=== PATIENT | female | born 1960 | race Two or more races ===

== ENCOUNTER → 2017-02-26 | Outpatient (CLI) | payer MEDICARE, MEDICAID ==
[2017-02-26 10:44] LABS: HEMOGLOBIN 9.8 g/dL (12.0-15.5); HGB HCT DIFFERENCE -0.6; MEAN CORPUSCULAR HEMOGLOBIN 29.3 pg (27.0-33.4); MEAN CORPUSCULAR HGB CONC 32.5 g/dL (32.0-36.0); MEAN CORPUSCULAR VOLUME 90 fl (80-97); RED BLOOD COUNT 3.33 10^6/uL (3.72-5.28); RED CELL DISTRIBUTION WIDTH 13.8 % (11.5-14.0); WHITE BLOOD COUNT 7.9 10^3/uL (4.0-10.5)
[2017-02-26 10:51] LABS: APPEARANCE,URINE CLOUDY; BILIRUBIN,URINE NEGATIVE (NEGATIVE); GLUCOSE, URINE 150 mg/dL (NEGATIVE); KETONES,URINE NEGATIVE (NEGATIVE); LEUKOCYTE ESTERASE,URINE MODERATE (NEGATIVE); NITRITE,URINE NEGATIVE (NEGATIVE); PROTEIN,URINE >=500 mg/dL (NEGATIVE); URINE SPECIFIC GRAVITY 1.012; UROBILINOGEN,URINE NEGATIVE mg/dL (<2.0)
[2017-02-26 11:07] LABS: ANION GAP 9 (5-19); BLOOD UREA NITROGEN 49 mg/dL (7-20); CALCIUM 8.8 mg/dL (8.4-10.2); CARBON DIOXIDE 17 mmol/L (22-30); CHLORIDE 119 mmol/L (98-107); CREATININE RESULT 2.91 mg/dL (0.52-1.25); GLUCOSE 109 mg/dL (75-110); POTASSIUM 5.8 mmol/L (3.6-5.0)
[2017-02-26 11:08] LABS: URINE CREATININE 68.3 mg/dL (15-278)
[2017-02-26 11:29] LABS: URINE PROTEIN 1056.6 mg/dL (<12)
== END ==
LOC: OD 09:15
PROVIDERS: ATTEND Internal Medicine Nephrology
DX: E11.9 Type 2 diabetes mellitus without complications (principal); R80.9 Proteinuria, unspecified; I10 Essential (primary) hypertension
CPT/HCPCS: 36415; 80048; 81001; 82570; 84156; 85027

== ENCOUNTER → 2017-03-11 | Outpatient (CLI) | payer MEDICARE, MEDICAID ==
[2017-03-11 15:26] LABS: ABSOLUTE EOSINOPHILS # (AUTO) 0.2 10^3/uL (0.0-0.6); ABSOLUTE LYMPHOCYTES (AUTO) 2.1 10^3/uL (0.5-4.7); ABSOLUTE MONOCYTES (AUTO) 0.4 10^3/uL (0.1-1.4); ABSOLUTE NEUT (AUTO) 3.8 10^3/uL (1.7-8.2); BASOPHILS % (AUTO) 0.5 % (0-2); EOSINOPHILS % (AUTO) 2.5 % (0-6); HEMATOCRIT 31.8 % (36.0-47.0); HEMOGLOBIN 10.3 g/dL (12.0-15.5); HGB HCT DIFFERENCE -0.9; LYMPHOCYTES % (AUTO) 32.4 % (13-45); MEAN CORPUSCULAR HEMOGLOBIN 29.6 pg (27.0-33.4); MEAN CORPUSCULAR HGB CONC 32.5 g/dL (32.0-36.0); MEAN CORPUSCULAR VOLUME 91 fl (80-97); MONOCYTES % (AUTO) 6.1 % (3-13); RED BLOOD COUNT 3.49 10^6/uL (3.72-5.28); RED CELL DISTRIBUTION WIDTH 13.6 % (11.5-14.0); SEGMENTED NEUTROPHILS % (AUTO) 58.5 % (42-78); WHITE BLOOD COUNT 6.4 10^3/uL (4.0-10.5)
[2017-03-11 15:47] LABS: ANION GAP 12 (5-19); BLOOD UREA NITROGEN 52 mg/dL (7-20); CALCIUM 8.7 mg/dL (8.4-10.2); CARBON DIOXIDE 18 mmol/L (22-30); CHLORIDE 116 mmol/L (98-107); CREATININE RESULT 3.22 mg/dL (0.52-1.25); GLUCOSE 136 mg/dL (75-110); POTASSIUM 5.6 mmol/L (3.6-5.0)
[2017-03-11 16:05] LABS: APPEARANCE,URINE CLOUDY; BILIRUBIN,URINE NEGATIVE (NEGATIVE); GLUCOSE, URINE 50 mg/dL (NEGATIVE)
[2017-03-11 16:06] LABS: KETONES,URINE NEGATIVE (NEGATIVE); LEUKOCYTE ESTERASE,URINE LARGE (NEGATIVE); NITRITE,URINE NEGATIVE (NEGATIVE); PROTEIN,URINE >=500 mg/dL (NEGATIVE); URINE SPECIFIC GRAVITY 1.015; UROBILINOGEN,URINE NEGATIVE mg/dL (<2.0)
[2017-03-11 16:07] LABS: BACTERIA,URINE 3+ /HPF; WBC,URINE 30-50 /HPF
[2017-03-11 16:15] LABS: URINE CREATININE 82.5 mg/dL (15-278)
[2017-03-11 17:00] LABS: URINE PROTEIN 976.4 mg/dL (<12)
== END ==
LOC: OD 14:36
PROVIDERS: ATTEND Physician Assistant Medical
DX: N17.9 Acute kidney failure, unspecified (principal); R80.9 Proteinuria, unspecified; E11.9 Type 2 diabetes mellitus without complications; I10 Essential (primary) hypertension
CPT/HCPCS: 36415; 80048; 81001; 82570; 84156; 85025; 87086; 87088; 87186

== ENCOUNTER → 2017-03-13 | Outpatient (CLI) | payer MEDICARE, MEDICAID ==
--- NOTE | 2017-03-13 15:40 | RADIOLOGY REPORT (SQ) ---
EXAM DESCRIPTION: U/S RETROPERITON (RENAL/AORTA) COMPLETED DATE/TIME: 03/13/2017 2:40 pm REASON FOR STUDY: ACUTE KIDNEY FAILURE N17.9 ACUTE KIDNEY FAILURE, UNSPECIFIED R80.9 PROTEINURIA, UNSPECIFIED COMPARISON: None. TECHNIQUE: Dynamic and static grayscale images acquired of the kidneys and bladder and recorded on P ACS. Additional selected color Doppler and spectral images recorded. LIMITATIONS: None. FINDINGS: RIGHT KIDNEY: The right kidney measures 9.6 cm in length. Normal echogenicity. No gita id or suspicious masses. No hydronephrosis. No calcifications. LEFT KIDNEY: The left kidney measures 9.9 cm in length. Normal echogenicity. No solid or suspici ous masses. No hydronephrosis. No calcifications. BLADDER: The bladder is incompletely distended. OTHER FINDINGS: No other significant finding. IMPRESSION: NORMAL RENAL AND BLADDER ULTRASOUND. TECHNICAL DOCUMENTATION: JOB ID: [id number] [employer]- All Rights Reserved
== END ==
LOC: RAD 13:58
PROVIDERS: ATTEND Internal Medicine Nephrology
DX: N17.9 Acute kidney failure, unspecified (principal); R80.9 Proteinuria, unspecified
CPT/HCPCS: 76770

== ENCOUNTER → 2017-03-14 | Outpatient (CLI) | payer MEDICARE, MEDICAID ==
[2017-03-14 15:41] LABS: ANION GAP 12 (5-19); BLOOD UREA NITROGEN 49 mg/dL (7-20); CALCIUM 8.3 mg/dL (8.4-10.2); CARBON DIOXIDE 16 mmol/L (22-30); CHLORIDE 117 mmol/L (98-107); CREATININE RESULT 2.68 mg/dL (0.52-1.25); GLUCOSE 110 mg/dL (75-110); POTASSIUM 4.9 mmol/L (3.6-5.0); SODIUM 144.8 mmol/L (137-145)
== END ==
LOC: OD 14:16
PROVIDERS: ATTEND Physician Assistant Medical
DX: E87.5 Hyperkalemia (principal); E87.0 Hyperosmolality and hypernatremia
CPT/HCPCS: 36415; 80048

== ENCOUNTER → 2017-04-15 | Outpatient (CLI) | payer MEDICARE, MEDICAID ==
[2017-04-15 13:45] LABS: APPEARANCE,URINE SLIGHTLY-CLOUDY; BILIRUBIN,URINE NEGATIVE (NEGATIVE); GLUCOSE, URINE 150 mg/dL (NEGATIVE); KETONES,URINE NEGATIVE (NEGATIVE); LEUKOCYTE ESTERASE,URINE NEGATIVE (NEGATIVE); NITRITE,URINE NEGATIVE (NEGATIVE); PROTEIN,URINE >=500 mg/dL (NEGATIVE); URINE SPECIFIC GRAVITY 1.013; UROBILINOGEN,URINE NEGATIVE mg/dL (<2.0)
[2017-04-15 13:58] LABS: ANION GAP 10 (5-19); BLOOD UREA NITROGEN 43 mg/dL (7-20); CALCIUM 8.5 mg/dL (8.4-10.2); CARBON DIOXIDE 15 mmol/L (22-30); CHLORIDE 119 mmol/L (98-107); CREATININE RESULT 2.32 mg/dL (0.52-1.25); GLUCOSE 166 mg/dL (75-110); PHOSPHORUS 4.6 mg/dL (2.5-4.5); POTASSIUM 5.8 mmol/L (3.6-5.0); SODIUM 143.7 mmol/L (137-145)
[2017-04-15 14:04] LABS: URINE CREATININE 83.8 mg/dL (15-278)
[2017-04-15 14:20] LABS: URINE PROTEIN 827.4 mg/dL (<12)
[2017-04-16 10:45] LABS: PTH INTACT 99 pg/mL (15-65)
[2017-04-16 14:39] LABS: A/G RATIO 0.9 (0.7-1.7); ALBUMIN 2 2.6 g/dL (2.9-4.4); ALPHA-1-GLOBULIN 2 0.2 g/dL (0.0-0.4); GAMMA GLOBULIN 0.7 g/dL (0.4-1.8); PROTEIN TOTAL SERUM 5.4 g/dL (6.0-8.5)
== END ==
LOC: OD 12:12
PROVIDERS: ATTEND Physician Assistant Medical
DX: I12.9 Hypertensive chronic kidney disease with stage 1 through stage 4 chronic kidney disease, or unspecified chronic kidney disease (principal); N18.4 Chronic kidney disease, stage 4 (severe); E87.5 Hyperkalemia; E11.9 Type 2 diabetes mellitus without complications
CPT/HCPCS: 36415; 80048; 81001; 82570; 82728; 83540; 83550; 83970; 84100; 84156; 84165

== ENCOUNTER → 2017-08-22 | Outpatient (CLI) | payer MEDICARE, MEDICAID ==
--- NOTE | 2017-08-22 15:17 | WOMENS IMAGING REPORT ---
EXAM DESCRIPTION: 3D SCREENING MAMMO BILAT COMPLETED DATE/TIME: 08/22/2017 2:58 pm REASON FOR STUDY: ROUTINE SCREENING; Z12.31 Z12.31 ENCNTR SCREEN MAMMOGRAM FOR MALIGNANT NEOPLASM O F DAVID COMPARISON: None. TECHNIQUE: Standard craniocaudal and mediolateral oblique views of each breast recorded using digita l acquisition and breast tomosynthesis. LIMITATIONS: None. FINDINGS: No masses, calcifications or architectural distortion. No areas of suspicion. Read with the assistance of CAD. .[facility] - R2 Cenova Version 1.3 .[facility] - R2 Cenova Version 1.3 .[facility] - R2 Cenova Version 2.4 .[facility]2 Cenova Version 2.4 .[facility] - R2 Store Facility Technician Version 9.2 IMPRESSION: NORMAL MAMMOGRAM. BIRADS 1. BREAST DENSITY: b. There are scattered areas of fibroglandular density. BIRAD: 1 NEGATIVE RECOMMENDATION: ROUTINE SCREENING COMMENT: The patient has been notified of the results by letter per SA requirements. Additional no tification policies are in place for contacting patient with suspicious or incomplete findings. Quality ID #[id number]: The [employer] recommends an annual screening mammogram for women aged 40 years or over. This facility utilizes a reminder system to ensure that all patients receive reminder letters, and/or direct phone calls for appointments. This includes reminders for routine scr eening mammograms, diagnostic mammograms, or other Breast Imaging Interventions when appropriate. Th is patient will be placed in the appropriate reminder system. The [employer] (ACR) has developed recommendations for screening MRI of the breast s in certain patient populations, to be used in conjunction with mammography. Breast MRI surveillanc e may be appropriate for women with more than 20% lifetime risk of developing breast cancer as deter mined by genetic testing, significant family history of the disease, or history of mantle radiation f or Hodgkins Disease. ACR Practice Guidelines 2008. DBT Technology DBT is a type of tomographic mammography. With conventional mammography, overlapping breast tissue ma y make lesions difficult to detect, even with good compression. DBT uses an x-ray tube that rotates a round the breast, taking images at different angles. These images are then combined to create thin sl ices of the breast that the radiologist can view as a 3D reconstruction. The [employer] unit can perform full-field digital mammograms (2D imaging); or DBT (3D imaging); or both, in a combination mode that quickly performs both the mammogram and the tomosynthesis scan while the breast is still compressed. PQRS 6045F: Fluoroscopic imaging is not utilized for breast tomosynthesis. TECHNICAL DOCUMENTATION: FINDING NUMBER: (1) ASSESSMENT: (1) JOB ID: [id number] [employer]- All Rights Reserved
== END ==
LOC: WI 14:34
PROVIDERS: ATTEND Physician Assistant
DX: Z12.31 Encounter for screening mammogram for malignant neoplasm of breast (principal)
CPT/HCPCS: 77063; G0202; 77067

== ENCOUNTER → 2017-09-04 | Outpatient (CLI) | payer MEDICARE, MEDICAID ==
[2017-09-04 16:29] LABS: HEMATOCRIT 30.4 % (36.0-47.0); HEMOGLOBIN 10.4 g/dL (12.0-15.5); HGB HCT DIFFERENCE 0.8; MEAN CORPUSCULAR HEMOGLOBIN 30.8 pg (27.0-33.4); MEAN CORPUSCULAR HGB CONC 34.2 g/dL (32.0-36.0); MEAN CORPUSCULAR VOLUME 90 fl (80-97); RED BLOOD COUNT 3.39 10^6/uL (3.72-5.28); WHITE BLOOD COUNT 5.2 10^3/uL (4.0-10.5)
[2017-09-04 16:45] LABS: ANION GAP 7 (5-19); BLOOD UREA NITROGEN 47 mg/dL (7-20); CALCIUM 8.5 mg/dL (8.4-10.2); CARBON DIOXIDE 15 mmol/L (22-30); CHLORIDE 122 mmol/L (98-107); CREATININE RESULT 3.64 mg/dL (0.52-1.25); GLUCOSE 67 mg/dL (75-110); SODIUM 143.8 mmol/L (137-145)
[2017-09-04 16:58] LABS: POTASSIUM 6.1 mmol/L (3.6-5.0)
== END ==
LOC: OD 15:40
PROVIDERS: ATTEND Internal Medicine Nephrology
DX: I12.9 Hypertensive chronic kidney disease with stage 1 through stage 4 chronic kidney disease, or unspecified chronic kidney disease (principal); N18.4 Chronic kidney disease, stage 4 (severe); E87.5 Hyperkalemia; E11.9 Type 2 diabetes mellitus without complications
CPT/HCPCS: 36415; 80048; 85027

== ENCOUNTER → 2017-09-06 | Outpatient (CLI) | payer MEDICARE, MEDICAID | LOC: OD 13:02 | PROVIDERS: ATTEND Internal Medicine Nephrology | DX: E87.5 Hyperkalemia (principal) | CPT/HCPCS: 36415; 84132 ==

== ENCOUNTER 2018-04-15 15:25 | Emergency (ER) | payer MEDICARE, MEDICAID ==
[2018-04-15 16:24] LABS: ABSOLUTE EOSINOPHILS # (AUTO) 0.1 10^3/uL (0.0-0.6); ABSOLUTE LYMPHOCYTES (AUTO) 0.9 10^3/uL (0.5-4.7); ABSOLUTE MONOCYTES (AUTO) 0.6 10^3/uL (0.1-1.4); ABSOLUTE NEUT (AUTO) 8.5 10^3/uL (1.7-8.2); BASOPHILS % (AUTO) 0.3 % (0-2); EOSINOPHILS % (AUTO) 0.9 % (0-6); MEAN CORPUSCULAR HEMOGLOBIN 29.6 pg (27.0-33.4); MEAN CORPUSCULAR HGB CONC 31.5 g/dL (32.0-36.0); MEAN CORPUSCULAR VOLUME 94 fl (80-97); MONOCYTES % (AUTO) 5.9 % (3-13); PLATELET COUNT 316 10^3/uL (150-450); RED BLOOD COUNT 2.02 10^6/uL (3.72-5.28); RED CELL DISTRIBUTION WIDTH 15.3 % (11.5-14.0); SEGMENTED NEUTROPHILS % (AUTO) 83.9 % (42-78); TOTAL CELLS COUNTED % (AUTO) 100 %; WHITE BLOOD COUNT 10.1 10^3/uL (4.0-10.5)
[2018-04-15] MEDS ORDERED: NORMAL SALINE 250 ML IV PRN ×2 (16:35)
[2018-04-15] MEDS ORDERED: PIPERACILLIN/TAZOBACTAM 4.5 GM VIAL IV ONE (16:36)
[2018-04-15] MEDS ORDERED: VANCOMYCIN HCL INJ 1000 MG VIAL IV ONE (16:36)
[2018-04-15 16:39] LABS: ALANINE AMINOTRANSFERASE 23 U/L (9-52); ALBUMIN 2.6 g/dL (3.5-5.0); ALKALINE PHOSPHATASE 86 U/L (38-126); ASPARTATE AMINO TRANSFERASE 13 U/L (14-36); BILIRUBIN,DIRECT 0.3 mg/dL (0.0-0.4); BILIRUBIN,TOTAL 0.3 mg/dL (0.2-1.3); CALCIUM 7.2 mg/dL (8.4-10.2); GLUCOSE 64 mg/dL (75-110); LIPASE 276.7 U/L (23-300); TOTAL PROTEIN 5.5 g/dL (6.3-8.2)
--- NOTE | 2018-04-15 16:48 | ER Document Report ---
ED General - General Chief Complaint: Nausea/Vomiting/Diarrhea Stated Complaint: NAUSEA Time Seen by Provider: 04/15/18 16:23 Mode of Arrival: Ambulatory Information source: Patient Notes: 57-year-old female history of left AKA, right eye blindness presents with complaints of generalized weakness. Patient has a history of chronic kidney disease notes over the past few months she has been feeling weak denies any fevers or chills admits to nausea vomiting and diarrhea TRAVEL OUTSIDE OF THE [place] IN LAST 30 DAYS: No - HPI Onset: Other Onset/Duration: Persistent Quality of pain: No pain Severity: Moderate Pain Level: Denies Associated symptoms: Diarrhea, Nausea, Vomiting, Weakness Exacerbated by: Denies Relieved by: Denies Similar symptoms previously: No Recently seen / treated by doctor: No - Related Data Allergies/Adverse Reactions: No Known Allergies Allergy (Verified 04/15/18 16:01) Past Medical History - Social History Smoking Status: Current Every Day Smoker Cigarette use (# per day): Yes Chew tobacco use (# tins/day): No Smoking Education Provided: No Frequency of alcohol use: None Drug Abuse: None Family History: Reviewed & Not Pertinent Patient has suicidal ideation: No Patient has homicidal ideation: No - Past Medical History Cardiac Medical History: Reports: Hx Heart Attack - 12/2011 x 2, Hx Hypertension - COREG Pulmonary Medical History: Denies: Hx Asthma Neurological Medical History: Denies: Hx Cerebrovascular Accident, Hx Seizures Endocrine Medical History: Reports: Hx Diabetes Mellitus Type 2 - diet controlled Renal/ Medical History: Denies: Hx Peritoneal Dialysis GI Medical History: Denies: Hx Hepatitis, Hx Hiatal Hernia, Hx Ulcer Infectious Medical History: Denies: Hx Hepatitis Past Surgical History: Reports: Hx Orthopedic Surgery - left leg amputated. Denies: Hx Mastectomy, Hx Open Heart Surgery, Hx Pacemaker Review of Systems - Review of Systems Notes: REVIEW OF SYSTEMS: CONSTITUTIONAL : Denies fever, chills, or sweats. Denies recent illness. EENT: Denies eye, ear, throat, or mouth pain or symptoms. Denies nasal or sinus congestion or discharge. Denies throat, tongue, or mouth swelling or difficulty swallowing. CARDIOVASCULAR: Denies chest pain. Denies palpitations or racing or irregular heart beat. Denies ankle edema. RESPIRATORY: Denies cough, cold, or chest congestion. Denies shortness of breath, difficulty breathing, or wheezing. GASTROINTESTINAL: Admits to nausea vomiting diarrhea GENITOURINARY: Denies difficulty urinating, painful urination, burning, frequency, blood in urine, or discharge. FEMALE GENITOURINARY: Denies vaginal bleeding, heavy or abnormal periods, irregular periods. Denies vaginal discharge or odor. MUSCULOSKELETAL: Denies back or neck pain or stiffness. Denies joint pain or swelling. SKIN: Denies rash, lesions or sores. HEMATOLOGIC : Denies easy bruising or bleeding. LYMPHATIC: Denies swollen, enlarged glands. NEUROLOGICAL: Denies confusion or altered mental status. Denies passing out or loss of consciousness. Denies dizziness or lightheadedness. Denies headache. Denies weakness or paralysis or loss of use of either side. Denies problems with gait or speech. Denies sensory loss, numbness, or tingling. Denies seizures. PSYCHIATRIC: Denies anxiety or stress. Denies depression, suicidal ideation, or homicidal ideation. ALL OTHER SYSTEMS REVIEWED AND NEGATIVE. PHYSICAL EXAMINATION: GENERAL: Ill-appearing female HEAD: Atraumatic, normocephalic. EYES: Right eye blind ENT: Nares patent, oropharynx clear without exudates. Moist mucous membranes. NECK: Normal range of motion, supple without lymphadenopathy LUNGS: Breath sounds clear to auscultation bilaterally and equal. No wheezes rales or rhonchi. HEART: Regular rate and rhythm without murmurs ABDOMEN: Soft, nontender, nondistended abdomen. No guarding, no rebound. No masses appreciated. Female : deferred Musculoskeletal: Left AKA NEUROLOGICAL: Cranial nerves grossly intact. Normal speech, normal gait. Normal sensory, motor exams PSYCH: Normal mood, normal affect. SKIN: Cellulitis right groin Dictation was performed using [employer] voice recognition software Physical Exam - Vital signs Vitals: Resp 15 04/15/18 15:53 Course - Re-evaluation Re-evalutation: 04/15/18 16:47 Patient's presentation is most consistent with anemia chronic kidney disease related, she denies any rectal bleeding vomiting blood 04/15/18 17:11 Pt noted ot have creatinine 11, pot 7.3, meds ordered , dr aleman contacted, he requests transfer vidant paged Dr Doss 04/15/18 17:16 Dr doss will accept - Vital Signs Vital signs: Temp Pulse Resp BP Pulse Ox 15 04/15/18 15:53 - Laboratory Result Diagrams: 04/15/18 15:45 04/15/18 15:45 Laboratory results interpreted by me: 04/15/18 04/15/18 04/15/18 15:45 15:45 16:55 RBC 2.02 L Hgb 6.0 L Hct 19.0 L MCHC 31.5 L RDW 15.3 H Seg Neutrophils % 83.9 H Lymphocytes % 9.0 L Absolute Neutrophils 8.5 H Sodium 147.1 H Potassium 7.3 H* Chloride 122 H Carbon Dioxide 5 L* Anion Gap 20 H BUN 152 H Creatinine 11.10 H Est GFR ( Amer) 4 L Est GFR (Non-Af Amer) 4 L Glucose 64 L POC Glucose 64 L Calcium 7.2 L AST 13 L Total Protein 5.5 L Albumin 2.6 L Crossmatch 04/15/18 04/15/18 17:20 17:48 RBC Hgb Hct MCHC RDW Seg Neutrophils % Lymphocytes % Absolute Neutrophils Sodium Potassium Chloride Carbon Dioxide Anion Gap BUN Creatinine Est GFR ( Amer) Est GFR (Non-Af Amer) Glucose POC Glucose 475 H* Calcium AST Total Protein Albumin Crossmatch See Detail Discharge - Discharge Clinical Impression: Acute renal failure Qualifiers: Acute renal failure type: unspecified Qualified Code(s): N17.9 - Acute kidney failure, unspecified Condition: Critical Disposition: [facility] Referrals: Veena ALEMAN MD [Primary Care Provider] - Follow up as needed
[2018-04-15 16:53] LABS: BLOOD UREA NITROGEN 152 mg/dL (7-20)
[2018-04-15 16:54] LABS: CHLORIDE 122 mmol/L (98-107); SODIUM 147.1 mmol/L (137-145)
[2018-04-15 16:55] LABS: ANION GAP 20 (5-19)
[2018-04-15 16:57] LABS: CARBON DIOXIDE 5 mmol/L (22-30); POTASSIUM 7.3 mmol/L (3.6-5.0)
[2018-04-15] MEDS ORDERED: SODIUM BICARBONATE 8.4% INJ 50 MEQ/50 ML DISP.SYRIN IV ONE (17:02)
[2018-04-15] MEDS ORDERED: DEXTROSE 50%-WATER 25 GM/50 ML DISP.SYRIN IV ONE ×2 (17:02→17:03)
[2018-04-15] MEDS ORDERED: ALBUTEROL SULFATE 0.083% NEB 2.5 MG/3 ML AMPUL NEB ONE (17:02)
[2018-04-15] MEDS ORDERED: INSULIN REG, HUMAN 100 UNIT/ML 3 ML VIAL (PYX) IV ONE (17:02)
[2018-04-15] MEDS ORDERED: CALCIUM GLUCONATE 1000 MG/10 ML INJ IV ONE (17:02)
[2018-04-15 18:18] VITALS: BP 118/60
[2018-04-15 18:50] LABS: AMORPHOUS SEDIMENT,URINE TRACE /HPF; APPEARANCE,URINE SLIGHTLY-CLOUDY; BILIRUBIN,URINE NEGATIVE (NEGATIVE); COLOR,URINE YELLOW; GLUCOSE, URINE 50 mg/dL (NEGATIVE); KETONES,URINE NEGATIVE (NEGATIVE); LEUKOCYTE ESTERASE,URINE SMALL (NEGATIVE); NITRITE,URINE NEGATIVE (NEGATIVE); PROTEIN,URINE 100 mg/dL (NEGATIVE); URINE SPECIFIC GRAVITY 1.012; UROBILINOGEN,URINE NEGATIVE mg/dL (<2.0)
--- NOTE | 2018-04-15 22:10 | EKG REPORT ---
SEVERITY:- ABNORMAL ECG - SINUS RHYTHM NONSPECIFIC INTRAVENTRICULAR CONDUCTION DELAY PROBABLE LATERAL INFARCT, AGE INDETERMINATE ABNRM R PROG, CONSIDER ASMI OR LEAD PLACEMENT : Confirmed by: Sakshi Pugh 15-Apr-2018 22:10:15
== END 2018-04-15 18:20 | disposition short-term general hospital (02) ==
LOC: ER 15:25
DX: N17.9 Acute kidney failure, unspecified (principal); L03.314 Cellulitis of groin; R11.2 Nausea with vomiting, unspecified; R19.7 Diarrhea, unspecified; H54.61 Unqualified visual loss, right eye, normal vision left eye; R53.83 Other fatigue; I10 Essential (primary) hypertension; F17.210 Nicotine dependence, cigarettes, uncomplicated; Z89.612 Acquired absence of left leg above knee; I25.2 Old myocardial infarction
CPT/HCPCS: 93005; 94640; 99285; 51701; 96375; 96365; 96366; 96368; 86900; 86901; 36415; 87040; 86850; 82962; 83690; 85025; 80053; 81001; 86920; 93010; J0610; J3490 ×2; A9270 ×2; J3370; J2543; J1815

== ENCOUNTER 2018-05-27 00:09 | Observation (INO) | payer MEDICARE, MEDICAID ==
--- NOTE | 2018-05-27 00:39 | ER Document Report ---
ED General - General Mode of Arrival: Medic Information source: Patient TRAVEL OUTSIDE OF THE U.[place]. IN LAST 30 DAYS: No <JODEE LINARES - Last Filed: 05/27/18 02:50> <HIRAM FREEMAN - Last Filed: 05/27/18 04:37> - General Stated Complaint: RESPIRATORY DISTRESS Time Seen by Provider: 05/27/18 00:12 Notes: Patient is a 57 year old female with HTN, diabetes type 2, ESRD and a history of OR presents to the emergency department via EMS complaining of chest pain and difficulty breathing. Patient is on BiPAP at bedside and states she feels completely normal. Patient denies any cough, fever or oxygen use at home. Patient states she last had dialysis on 3 days ago. (JODEE LINARES) - Related Data Allergies/Adverse Reactions: No Known Allergies Allergy (Verified 04/15/18 16:01) Past Medical History - General Information source: Patient - Social History Smoking Status: Never Smoker Cigarette use (# per day): No Chew tobacco use (# tins/day): No Smoking Education Provided: No Family History: Reviewed & Not Pertinent - Past Medical History Cardiac Medical History: Reports: Hx Heart Attack - 12/2011 x 2, Hx Hypertension - COREG Endocrine Medical History: Reports: Hx Diabetes Mellitus Type 2 - diet controlled Past Surgical History: Reports: Hx Orthopedic Surgery - left leg amputated <JDOEE LINARES - Last Filed: 05/27/18 02:50> Review of Systems - Review of Systems Constitutional: No symptoms reported EENT: No symptoms reported Cardiovascular: See HPI, Chest pain Respiratory: See HPI Gastrointestinal: No symptoms reported Genitourinary: No symptoms reported Female Genitourinary: No symptoms reported Musculoskeletal: No symptoms reported Skin: No symptoms reported Hematologic/Lymphatic: No symptoms reported Neurological/Psychological: No symptoms reported -: Yes All other systems reviewed and negative <JODEE LINARES - Last Filed: 05/27/18 02:50> Physical Exam - Vital signs Interpretation: Tachypneic - General General appearance: Alert In distress: Mild - HEENT Head: Normocephalic, Atraumatic Eyes: Other - R eye at baseline - Respiratory Respiratory status: Respiratory distress, Tachypnea Chest status: Nontender Breath sounds: Rales - Bases bilaterally Chest palpation: Normal - Cardiovascular Rhythm: Regular Heart sounds: Normal auscultation Murmur: No - Abdominal Inspection: Normal Distension: No distension Bowel sounds: Normal Tenderness: Nontender Organomegaly: No organomegaly - Back Back: Normal, Nontender - Extremities General upper extremity: Normal inspection, Normal color, Normal ROM General lower extremity: Other - L AKA - Neurological Neuro grossly intact: Yes Cognition: Normal Orientation: AAOx4 Denis Coma Scale Eye Opening: Spontaneous [place] Coma Scale Verbal: Oriented [place] Coma Scale Motor: Obeys Commands [place] Coma Scale Total: 15 Speech: Normal Motor strength normal: LUE, RUE, LLE Sensory: Normal - Psychological Associated symptoms: Normal affect, Normal mood - Skin Skin Temperature: Warm Skin Moisture: Dry Skin Color: Normal <HIRAM FREEMAN - Last Filed: 05/27/18 04:37> - Vital signs Vitals: Resp Pulse Ox 22 H 100 05/27/18 00:10 05/27/18 00:10 Course - Laboratory Result Diagrams: 05/27/18 00:23 05/27/18 00:23 <JODEE LINARES - Last Filed: 05/27/18 02:50> - Laboratory Result Diagrams: 05/27/18 00:23 05/27/18 00:23 <HIRAM FREEMAN - Last Filed: 05/27/18 04:37> - Re-evaluation Re-evalutation: 05/27/18 02:[address] Serrato who recommends administering Lasix and states they will see the patient in office tomorrow. (JODEE LINARES) Patient is a 57-year-old female who comes in with difficulty breathing. Patient had complained of chest pain but no further complaints in the emergency department. She was initiated on BiPAP. Patient had been given sublingual nitroglycerin and also nitroglycerin paste prior to arrival. No acute findings on EKG. Troponin is negative. Patient has vascular congestion on x-ray and by exam. Potassium is stable. Patient will be admitted for respiratory distress, probable fluid overload, end-stage renal disease on dialysis. There are dialysis beds available. Spoke with Dr. Serrato. Hospitalist will admit. Stable at time of admission. (HIRAM FREEMAN) - Vital Signs Vital signs: Temp Pulse Resp BP Pulse Ox 98.9 F 87 17 146/56 H 100 05/27/18 00:12 05/27/18 00:12 05/27/18 03:00 05/27/18 03:00 05/27/18 03:00 - Laboratory Laboratory results interpreted by me: 05/27/18 05/27/18 00:23 00:23 RBC 3.28 L Hgb 10.1 L Hct 30.9 L RDW 16.7 H BUN 52 H Creatinine 4.96 H Est GFR ( Amer) 11 L Est GFR (Non-Af Amer) 9 L Alkaline Phosphatase 131 H Critical Care Note - Critical Care Note Total time excluding time spent on procedures (mins): 45 - Evaluation and management of respiratory distress, fluid overload, multiple re-evaluations, consultation with specialist, coordination of admission, counseling of patient <HIRAM FREEMAN - Last Filed: 05/27/18 04:37> Discharge <JODEE LINARES - Last Filed: 05/27/18 02:50> - Discharge Admitting Provider: [facility] Unit Admitted: ICU <HIRAM FREEMAN - Last Filed: 05/27/18 04:37> - Discharge Clinical Impression: ESRD (end stage renal disease), Respiratory distress Fluid overload Qualifiers: Hypervolemia type: other Qualified Code(s): E87.79 - Other fluid overload Condition: Stable Disposition: ADMITTED INPATIENT Scribe Attestation: 05/27/18 04:36 I personally performed the services described in the documentation, reviewed and edited the documentation which was dictated to the scribe in my presence, and it accurately records my words and actions. (HIRAM FREEMAN) Scribe Documentation - Scribe Written by Miguel:: Miguel Lynch, 05/27/2018 00:40 acting as scribe for :: Jackie <JODEE LINARES - Last Filed: 05/27/18 02:50>
[2018-05-27 01:10] LABS: ABSOLUTE BASOPHILS # (AUTO) 0.1 10^3/uL (0.0-0.2); ABSOLUTE EOSINOPHILS # (AUTO) 0.3 10^3/uL (0.0-0.6); ABSOLUTE LYMPHOCYTES (AUTO) 2.2 10^3/uL (0.5-4.7); ABSOLUTE MONOCYTES (AUTO) 0.5 10^3/uL (0.1-1.4); BASOPHILS % (AUTO) 0.7 % (0-2); EOSINOPHILS % (AUTO) 3.6 % (0-6); HEMATOCRIT 30.9 % (36.0-47.0); HEMOGLOBIN 10.1 g/dL (12.0-15.5); LYMPHOCYTES % (AUTO) 27.3 % (13-45); MEAN CORPUSCULAR HEMOGLOBIN 30.9 pg (27.0-33.4); MEAN CORPUSCULAR HGB CONC 32.9 g/dL (32.0-36.0); MEAN CORPUSCULAR VOLUME 94 fl (80-97); MONOCYTES % (AUTO) 6.4 % (3-13); PLATELET COUNT 380 10^3/uL (150-450); RED BLOOD COUNT 3.28 10^6/uL (3.72-5.28); RED CELL DISTRIBUTION WIDTH 16.7 % (11.5-14.0); TOTAL CELLS COUNTED % (AUTO) 100 %
[2018-05-27 01:15] LABS: INTERNATIONAL RATION (INR) 1.01; PROTHROMBIN TIME 13.8 SEC (11.4-15.4)
[2018-05-27 01:16] LABS: ALANINE AMINOTRANSFERASE 27 U/L (9-52); ALBUMIN 3.5 g/dL (3.5-5.0); ALKALINE PHOSPHATASE 131 U/L (38-126); ANION GAP 14 (5-19); ASPARTATE AMINO TRANSFERASE 29 U/L (14-36); BILIRUBIN,DIRECT 0.4 mg/dL (0.0-0.4); BILIRUBIN,TOTAL 0.4 mg/dL (0.2-1.3); BLOOD UREA NITROGEN 52 mg/dL (7-20); CALCIUM 9.1 mg/dL (8.4-10.2); CARBON DIOXIDE 23 mmol/L (22-30); CHLORIDE 103 mmol/L (98-107); CREATINE KINASE 70 U/L (30-135); GLUCOSE 103 mg/dL (75-110); POTASSIUM 4.2 mmol/L (3.6-5.0); SODIUM 139.8 mmol/L (137-145); TOTAL PROTEIN 6.7 g/dL (6.3-8.2)
--- NOTE | 2018-05-27 01:19 | RADIOLOGY REPORT (SQ) ---
XR CHEST 1 VIEW HISTORY: Shortness of breath. COMPARISON: None. FINDINGS/IMPRESSION: Right IJ central line with the tip at the cavoatrial junction. Mild cardiomegaly is present with pulmonary vascular congestion. Small right pleural effusion with adjacent atelectasis/opacity. Left lung is grossly clear. No acute osseous findings.
[2018-05-27 01:28] LABS: CREATINE KINASE MB 2.7 ng/mL (<4.55)
[2018-05-27 01:32] LABS: TROPONIN I 0.04 ng/mL
[2018-05-27] MEDS ORDERED: FUROSEMIDE INJ/PF 40 MG/4 ML SDV IV ONE ×2 (02:47→09:00)
[2018-05-27] MEDS ORDERED: PROMETHAZINE HCL 25 MG TABLET PO PRN (03:54)
[2018-05-27] MEDS ORDERED: PROMETHAZINE HCL INJ 25 MG/1 ML VIAL IV PRN (03:54)
[2018-05-27] MEDS ORDERED: ACETAMINOPHEN 325 MG TABLET PO PRN (03:54)
[2018-05-27] MEDS ORDERED: MAG HYDROX/AL HYDROX/SIMETH SUSP 30 ML UDCUP PO PRN (03:54)
--- NOTE | 2018-05-27 04:12 | PDOC H&P ---
History of Present Illness Admission Date/PCP: 05/27/18 03:08 Rafael Serrato Patient complains of: Shortness of breath History of Present Illness: ASHLEY GARCIA is a 57 year old female ESRD on hemodialysis Saturday and Saturday. Patient tells me that she has started hemodialysis 3 weeks ago in [place] and her last dialysis was a complete one last Saturday. Today at 11 PM she has started with the left side chest pain, pleuritic-like associated with progressive shortness of breath, she was saturating 89% on 3 L oxygen via nasal cannula. Patient was initiated on CPAP in the EMS and was given 2 nitroglycerin sublingual. Patient is currently on BiPAP. Chest x-ray shows bilateral vascular congestion. Patient denies drinking more fluids than her usual. Patient still makes urine. Patient will be admitted under observation for hemodialysis later on today as her brass cleaner is Dr. Serrato. Has been feeling cold but denies fever or chills, nausea, vomiting, cough, she is wheezing on and off, denies abdominal pain, diarrhea or constipation or urinary symptoms. Past Medical History Cardiac Medical History: Reports: Myocardial Infarction - 12/2011 x 2, Hypertension - COREG Pulmonary Medical History: Denies: Asthma Neurological Medical History: Denies: Seizures Endocrine Medical History: Reports: Diabetes Mellitus Type 2 - diet controlled Renal/ Medical History: Reports: End Stage Renal Disease GI Medical History: Denies: Hepatitis, Hiatal Hernia Hematology: Denies: Anemia, Sickle Cell Disease Infectious Medical History: Reports: Other Infectious History Note: Right eye infection with enucleation Past Surgical History Past Surgical History: Reports: Amputation - LT LEG above knee amputation, Orthopedic Surgery - left leg amputated Denies: Mastectomy, Pacemaker Social History Information Source: Patient Smoking Status: Never Smoker Frequency of Alcohol Use: None Hx Recreational Drug Use: No Hx Prescription Drug Abuse: No Past Social History Note: Lives with her mother at home Family History Family History: Reviewed & Not Pertinent Parental Family History Reviewed: No Children Family History Reviewed: NA Sibling(s) Family History Reviewed.: NA Medication/Allergy Home Medications: Aspirin [Aspirin 81 mg Chewable Tablet] 81 mg PO DAILY 07/04/12 Bupropion HCl [Wellbutrin Xl 150 mg 24hr Tablet] 150 mg PO DAILY 07/04/12 Carvedilol [Coreg 6.25 Mg Tablet] 6.25 mg PO DAILY 07/04/12 Clopidogrel Bisulfate [Plavix 75 Mg Tablet] 75 mg PO DAILY 07/04/12 Nitroglycerin [Nitrostat 0.4 mg (1/150 Gr) Tabs 25/Bottle] 0.4 mg SL Q5MP PRN Simvastatin [Zocor 20 mg Tablet] 20 mg PO QHS 07/04/12 Allergies/Adverse Reactions: No Known Allergies Allergy (Verified 04/15/18 16:01) Review of Systems Review of Systems: As outlined in the HPI, others negative Physical Exam Vital Signs: Temp Pulse Resp BP Pulse Ox 98.9 F 87 17 146/56 H 100 05/27/18 00:12 05/27/18 00:12 05/27/18 03:00 05/27/18 03:00 05/27/18 03:00 Additional comments: General appearance: Well-developed, well-nourished, alert and cooperative, and appears to be in no acute distress Head: Normocephalic Eyes: Right eye enucleation, left eye blurry vision. Ears: External auditory canal and tympanic membranes clear, hearing grossly intact. Nose: No nasal discharge. Throat: Oral cavity and pharynx normal. No inflammation, swelling, exudate or lesions. Neck: Neck supple, nontender without lymphadenopathy, masses or thyromegaly. Cardiac: Normal S1 and S2. No S3, S4 or murmurs. Rhythm is regular. There is no peripheral edema, cyanosis or pallor. Extremities are warm and well perfused. Capillary refill is less than 2 seconds. No carotid bruits. Lungs: Clear to auscultation and percussion with bibasilar rales, no rhonchi or wheezing or diminished breath sounds. Not using accessory muscles. Abdomen: Positive bowel sounds. Soft. Nondistended, nontender. No guarding or rebound. No masses. No hepatosplenomegaly Extremities: Left AKA Neurological: Cranial nerves II through XII grossly intact. Strength and sensation symmetric and intact throughout. Reflexes 2+ throughout. Skin: Skin normal color, texture and turgor with no lesions or eruptions, warm and dry. Psychiatric: The mental examination revealed the patient was oriented to person , place, and time. The patient was able to demonstrate good judgment on recent , without hallucinations, abnormal affect or abnormal behaviors. Results Laboratory Results: 05/27/18 05/27/18 05/27/18 00:23 00:23 00:23 WBC 8.0 RBC 3.28 L Hgb 10.1 L Hct 30.9 L MCV 94 MCH 30.9 MCHC 32.9 RDW 16.7 H Plt Count 380 Seg Neutrophils % 62.0 Lymphocytes % 27.3 Monocytes % 6.4 Eosinophils % 3.6 Basophils % 0.7 Absolute Neutrophils 5.0 Absolute Lymphocytes 2.2 Absolute Monocytes 0.5 Absolute Eosinophils 0.3 Absolute Basophils 0.1 PT 13.8 INR 1.01 Sodium 139.8 Potassium 4.2 Chloride 103 Carbon Dioxide 23 Anion Gap 14 BUN 52 H Creatinine 4.96 H Est GFR ( Amer) 11 L Est GFR (Non-Af Amer) 9 L Glucose 103 Calcium 9.1 Total Bilirubin 0.4 Direct Bilirubin 0.4 AST 29 ALT 27 Alkaline Phosphatase 131 H Creatine Kinase 70 CK-MB (CK-2) Troponin I Total Protein 6.7 Albumin 3.5 05/27/18 00:23 WBC RBC Hgb Hct MCV MCH MCHC RDW Plt Count Seg Neutrophils % Lymphocytes % Monocytes % Eosinophils % Basophils % Absolute Neutrophils Absolute Lymphocytes Absolute Monocytes Absolute Eosinophils Absolute Basophils PT INR Sodium Potassium Chloride Carbon Dioxide Anion Gap BUN Creatinine Est GFR ( Amer) Est GFR (Non-Af Amer) Glucose Calcium Total Bilirubin Direct Bilirubin AST ALT Alkaline Phosphatase Creatine Kinase CK-MB (CK-2) 2.70 Troponin I 0.040 Total Protein Albumin Impressions: Chest X-Ray 05/27/18 00:36 FINDINGS/IMPRESSION: Right IJ central line with the tip at the cavoatrial junction. Mild cardiomegaly is present with pulmonary vascular congestion. Small right pleural effusion with adjacent atelectasis/opacity. Left lung is grossly clear. No acute osseous findings. Assessment & Plan - Diagnosis (1) Fluid overload Qualifiers: Hypervolemia type: other Qualified Code(s): E87.79 - Other fluid overload Is this a current diagnosis for this admission?: Yes Plan: Patient comes with fluid overload associated with sudden shortness of breath and pleuritic left sided chest pain. We will give the patient on BiPAP in IMCU until she can have hemodialysis by Dr. Serrato through her right Port-A-Cath. (2) ESRD (end stage renal disease) Is this a current diagnosis for this admission?: Yes Plan: Patient tells me that she has started hemodialysis about 3 weeks ago, she has a right Port-A-Cath and no AV fistula has been scheduled yet. Dr. Serrato from the nephrology department has been consulted. (3) Hypertension Qualifiers: Hypertension type: essential hypertension Qualified Code(s): I10 - Essential (primary) hypertension Is this a current diagnosis for this admission?: Yes Plan: Resume home antihypertensive medication. (4) Diabetes mellitus type 2 in nonobese Is this a current diagnosis for this admission?: Yes Plan: Accu-Cheks q. before meals and at bedtime, insulin lispro sliding scale, hypoglycemia protocol. (5) CAD (coronary artery disease) Is this a current diagnosis for this admission?: Yes Plan: Continue Plavix - Time Time Spent: 30 to 50 Minutes
[2018-05-27] MEDS: IPRATROPIUM/ALBUTEROL 0.5-2.5 MG/3 ML AMPUL NEB SCH ×5 (07:04→16:38)
[2018-05-27] MEDS: HEPARIN SOD (PORCINE) 5,000 UNIT/ML 1 ML SYRINGE SUBCUT SCH ×2 (07:47→16:06)
--- NOTE | 2018-05-27 09:29 | EKG REPORT ---
SEVERITY:- ABNORMAL ECG - SINUS RHYTHM BORDERLINE LEFT AXIS DEVIATION ABNORMAL T, CONSIDER ISCHEMIA, LATERAL LEADS : Confirmed by: Sakshi Pugh 27-May-2018 09:29:05
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
[2018-05-27] MEDS ORDERED: FUROSEMIDE INJ/PF 40 MG/4 ML SDV IV SCH (14:00)
--- NOTE | 2018-05-27 14:57 | PDOC CONSULTATION ---
Consultation Consult Date: 05/27/18 Consult reason:: hemodialysis History of Present Illness Admission Date/PCP: 05/27/18 03:08 History of Present Illness: NIANe GARCIA is a 57 year old female with h/o hypertension just ecently started on HD was admitted with dyspnea on exertion progressing to Orthopnea x 1 day.There was no c/o chest pains, fever or chills.She was diagnosed to have CHF and admitted for urgent dialysis. She is currently undergoing HD without any issues. VS are stable.Labs and meds were reviewed wi and the treating hospital tray service worker. Past Medical History Cardiac Medical History: Reports: Hypertension-primary, Myocardial Infarction - 12/2011 x 2 Pulmonary Medical History: Denies: Asthma Neurological Medical History: Denies: Seizures Endocrine Medical History: Reports: Diabetes Mellitus Type 2 - diet controlled Complications of Diabetes: Reports: Other Renal/ Medical History: Reports: End Stage Renal Disease, Secondary Hyperparathyroidism GI Medical History: Denies: Hepatitis, Hiatal Hernia Psychiatric Medical History: Reports: Depression Infectious Medical History: Reports: Other Hematology Medical History: Reports Anemia of Chronic Kidney Disease Past Surgical History Past Surgical History: Reports: Orthopedic Surgery - left leg amputated Denies: Mastectomy, Pacemaker Social History Smoking Status: Former Smoker Last Time Smoked: 2015 Frequency of Alcohol Use: None Hx Recreational Drug Use: No Drugs: None Hx Prescription Drug Abuse: No - Advance Directive Resuscitation Status: Full Code Family History Parental Family History Reviewed: Yes - Negative fo ESRD Children Family History Reviewed: No Sibling(s) Family History Reviewed.: No Medication/Allergy Home Medications: Amlodipine Besylate [Norvasc 5 mg Tablet] 5 mg PO DAILY 05/27/18 Aspirin [Adult Aspirin] 81 mg PO DAILY 05/27/18 Atorvastatin Calcium [Lipitor 80 mg Tablet] 80 mg PO QHS 05/27/18 Carvedilol [Coreg 6.25 mg Tablet] 6.25 mg PO Q12 05/27/18 Clopidogrel Bisulfate [Plavix 75 mg Tablet] 75 mg PO DAILY 05/27/18 Insulin Detemir [Levemir Flextouch] 10 units SQ QPM 05/27/18 Lisinopril [Zestril] 20 mg PO DAILY 05/27/18 Allergies/Adverse Reactions: No Known Allergies Allergy (Verified 04/15/18 16:01) Review of Systems Constitutional: PRESENT: fatigue, weakness. ABSENT: chills, fever(s), headache( s), night sweats Nose, Mouth, and Throat: ABSENT: headache(s), mouth pain, sore throat Cardiovascular: PRESENT: dyspnea on exertion, edema, orthropnea. ABSENT: chest pain, palpitations Respiratory: PRESENT: dyspnea. ABSENT: hemoptysis Gastrointestinal: ABSENT: coffee ground emesis, diarrhea, dysphagia, heartburn, hematemesis, hematochezia Genitourinary: ABSENT: difficulty urinating Hematologic/Lymphatic: ABSENT: easy bruising, lymphadenopathy Physical Exam Vital Signs: Temp Pulse Resp BP Pulse Ox 98.2 F 75 16 133/50 H 100 05/27/18 07:48 05/27/18 14:08 05/27/18 14:08 05/27/18 07:48 05/27/18 08:10 Intake & Output 05/26/18 05/27/18 05/28/18 06:59 06:59 06:59 Intake Total 237 Balance 237 Weight 60.5 kg General appearance: PRESENT: mild distress Eye exam: PRESENT: EOMI, PERRLA Ear exam: PRESENT: normal external ear exam Mouth exam: PRESENT: neck supple Neck exam: ABSENT: lymphadenopathy, meningismus, tenderness, thyromegaly, tracheal deviation Respiratory exam: PRESENT: chest wall tenderness, clear to auscultation devante, crackles Cardiovascular exam: PRESENT: +S1, +S2, systolic murmur GI/Abdominal exam: PRESENT: normal bowel sounds. ABSENT: ascites, organomegaly Extremities exam: PRESENT: +1 edema Neurological exam: PRESENT: alert, awake, oriented to person, oriented to place , oriented to time Results Impressions: Chest X-Ray 05/27/18 00:36 FINDINGS/IMPRESSION: Right IJ central line with the tip at the cavoatrial junction. Mild cardiomegaly is present with pulmonary vascular congestion. Small right pleural effusion with adjacent atelectasis/opacity. Left lung is grossly clear. No acute osseous findings. Assessment & Plan - Diagnosis (2) Diabetes mellitus type 2 in nonobese Is this a current diagnosis for this admission?: Yes (3) ESRD (end stage renal disease) Is this a current diagnosis for this admission?: Yes (4) Hypertension Qualifiers: Hypertension type: essential hypertension Qualified Code(s): I10 - Essential (primary) hypertension Is this a current diagnosis for this admission?: Yes
[2018-05-27 15:45] VITALS: BP 125/48
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
== END 2018-05-27 18:37 ==
LOC: ER 00:09 → INTOOBSV 03:08 → EH 03:08 → 3S 06:33
PROVIDERS: ADMIT Internal Medicine; ATTEND Internal Medicine
PROC: 5A1D70Z Performance of Urinary Filtration, Intermittent, Less than 6 Hours Per Day (ICD-10-PCS; principal; 2018-05-27)
DX: J96.01 Acute respiratory failure with hypoxia (principal); E11.22 Type 2 diabetes mellitus with diabetic chronic kidney disease; I12.0 Hypertensive chronic kidney disease with stage 5 chronic kidney disease or end stage renal disease; N18.6 End stage renal disease; I25.10 Atherosclerotic heart disease of native coronary artery without angina pectoris; J90 Pleural effusion, not elsewhere classified; H53.8 Other visual disturbances; S05.71XA Avulsion of right eye, initial encounter; X58.XXXA Exposure to other specified factors, initial encounter; H54.61 Unqualified visual loss, right eye, normal vision left eye; I25.2 Old myocardial infarction; Z79.899 Other long term (current) drug therapy; Z79.82 Long term (current) use of aspirin; Z99.2 Dependence on renal dialysis; Z89.612 Acquired absence of left leg above knee; Z95.828 Presence of other vascular implants and grafts; Z79.02 Long term (current) use of antithrombotics/antiplatelets; Z87.891 Personal history of nicotine dependence
CPT/HCPCS: 93005; 99291; 36415; 82553; 82550; 85025; 85610; 80053; 84484; 71045; 93010; 94660; 94640; J1644; J1940; A9270; G0257; J7620

== ENCOUNTER 2018-06-01 00:21 | Emergency (ER) | payer MEDICARE, MEDICAID ==
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
[2018-06-01 00:44] LABS: ABSOLUTE BASOPHILS # (AUTO) 0.1 10^3/uL (0.0-0.2); ABSOLUTE EOSINOPHILS # (AUTO) 0.1 10^3/uL (0.0-0.6); ABSOLUTE LYMPHOCYTES (AUTO) 1.2 10^3/uL (0.5-4.7); ABSOLUTE MONOCYTES (AUTO) 0.7 10^3/uL (0.1-1.4); BASOPHILS % (AUTO) 0.4 % (0-2); HEMATOCRIT 30.2 % (36.0-47.0); HEMOGLOBIN 9.9 g/dL (12.0-15.5); LYMPHOCYTES % (AUTO) 8.8 % (13-45); MEAN CORPUSCULAR HEMOGLOBIN 30.8 pg (27.0-33.4); MEAN CORPUSCULAR HGB CONC 32.9 g/dL (32.0-36.0); MEAN CORPUSCULAR VOLUME 94 fl (80-97); MONOCYTES % (AUTO) 5.5 % (3-13); PLATELET COUNT 304 10^3/uL (150-450); RED BLOOD COUNT 3.23 10^6/uL (3.72-5.28); RED CELL DISTRIBUTION WIDTH 16.4 % (11.5-14.0); SEGMENTED NEUTROPHILS % (AUTO) 84.3 % (42-78); TOTAL CELLS COUNTED % (AUTO) 100 %; WHITE BLOOD COUNT 13.1 10^3/uL (4.0-10.5)
[2018-06-01 01:00] LABS: ALANINE AMINOTRANSFERASE 18 U/L (9-52); ALBUMIN 3.5 g/dL (3.5-5.0); ALKALINE PHOSPHATASE 113 U/L (38-126); ANION GAP 12 (5-19); ASPARTATE AMINO TRANSFERASE 38 U/L (14-36); BILIRUBIN,DIRECT 0.6 mg/dL (0.0-0.4); BILIRUBIN,TOTAL 0.6 mg/dL (0.2-1.3); BLOOD UREA NITROGEN 101 mg/dL (7-20); CALCIUM 8.7 mg/dL (8.4-10.2); CARBON DIOXIDE 26 mmol/L (22-30); CHLORIDE 105 mmol/L (98-107); GLUCOSE 163 mg/dL (75-110); POTASSIUM 4.5 mmol/L (3.6-5.0); SODIUM 142.9 mmol/L (137-145); TOTAL PROTEIN 7.1 g/dL (6.3-8.2)
--- NOTE | 2018-06-01 01:23 | RADIOLOGY REPORT (SQ) ---
XR CHEST 1 VIEW HISTORY: Dyspnea. COMPARISON: 05/27/2018 FINDINGS/IMPRESSION: Stable support devices. Moderate cardiomegaly with pulmonary vascular congestion. Moderate-sized right pleural effusion with adjacent atelectasis/opacity, unchanged. New left lung opacification involving the mid and lower lung zones.
[2018-06-01] MEDS ORDERED: FUROSEMIDE INJ/PF 40 MG/4 ML SDV IV ONE (02:19)
[2018-06-01 05:58] LABS: ANION GAP 11 (5-19); BLOOD UREA NITROGEN 103 mg/dL (7-20); CALCIUM 8.6 mg/dL (8.4-10.2); CARBON DIOXIDE 25 mmol/L (22-30); CHLORIDE 107 mmol/L (98-107); GLUCOSE 144 mg/dL (75-110); POTASSIUM 4.2 mmol/L (3.6-5.0); SODIUM 143.2 mmol/L (137-145)
[2018-06-01] MEDS ORDERED: HEPARIN SODIUM,PORCINE/D5W 25,000 UNIT/250 ML RTUINJ IV PRN (06:52)
[2018-06-01] MEDS ORDERED: HEPARIN SOD (PORCINE) 1,000 UNIT/ML 10 ML VIAL IV ONE (06:52)
[2018-06-01] MEDS ORDERED: ENOXAPARIN SODIUM INJ 80 MG/0.8 ML DISP.SYRIN SUBCUT SCH (07:00)
[2018-06-01 07:41] LABS: ABSOLUTE BASOPHILS # (AUTO) 0.1 10^3/uL (0.0-0.2); ABSOLUTE EOSINOPHILS # (AUTO) 0.1 10^3/uL (0.0-0.6); ABSOLUTE LYMPHOCYTES (AUTO) 2.4 10^3/uL (0.5-4.7); ABSOLUTE MONOCYTES (AUTO) 0.7 10^3/uL (0.1-1.4); ABSOLUTE NEUT (AUTO) 6.9 10^3/uL (1.7-8.2); BASOPHILS % (AUTO) 0.6 % (0-2); EOSINOPHILS % (AUTO) 0.7 % (0-6); HEMATOCRIT 28.1 % (36.0-47.0); HEMOGLOBIN 9.3 g/dL (12.0-15.5); LYMPHOCYTES % (AUTO) 23.3 % (13-45); MEAN CORPUSCULAR HEMOGLOBIN 31.5 pg (27.0-33.4); MEAN CORPUSCULAR HGB CONC 33.1 g/dL (32.0-36.0); MEAN CORPUSCULAR VOLUME 95 fl (80-97); PLATELET COUNT 278 10^3/uL (150-450); RED BLOOD COUNT 2.95 10^6/uL (3.72-5.28); RED CELL DISTRIBUTION WIDTH 16.1 % (11.5-14.0); SEGMENTED NEUTROPHILS % (AUTO) 68.4 % (42-78); TOTAL CELLS COUNTED % (AUTO) 100 %; WHITE BLOOD COUNT 10.1 10^3/uL (4.0-10.5)
[2018-06-01 07:55] LABS: INTERNATIONAL RATION (INR) 1.11; PROTHROMBIN TIME 14.9 SEC (11.4-15.4)
[2018-06-01 07:56] LABS: PARTIAL THROMBOPLASTIN TIME 30.4 SEC (23.5-35.8)
--- NOTE | 2018-06-01 09:29 | EKG REPORT ---
SEVERITY:- ABNORMAL ECG - SINUS RHYTHM LVH WITH SECONDARY REPOLARIZATION ABNORMALITY : Confirmed by: Sakshi Pugh 01-Jun-2018 09:29:15
--- NOTE | 2018-06-01 11:12 | ER Document Report ---
Doctor's Note Notes: 06/01/18 11:11 This 57-year-old female presented for shortness of breath, currently she has a large pleural effusion, she has pulmonary edema she is in end-stage renal disease patient who is currently on BiPAP to maintain adequate work of breathing and saturation. Currently transport is being arranged for this patient to a higher level of care. We will plan for air care.
[2018-06-01 18:45] VITALS: BP 157/62
== END 2018-06-01 18:30 | disposition short-term general hospital (02) ==
LOC: ER 00:21
DX: R06.02 Shortness of breath (principal); I21.4 Non-ST elevation (NSTEMI) myocardial infarction; J90 Pleural effusion, not elsewhere classified; E87.70 Fluid overload, unspecified; E11.22 Type 2 diabetes mellitus with diabetic chronic kidney disease; N18.6 End stage renal disease; I12.0 Hypertensive chronic kidney disease with stage 5 chronic kidney disease or end stage renal disease; I25.2 Old myocardial infarction
CPT/HCPCS: 93005; 96376; 99285; 96375; 96365; 96366; 36415; 85025; 85610; 85730; 80048; 80053; 84484; 71045; 93010; 94660; J1644 ×2; J1940

== ENCOUNTER 2018-06-14 14:28 | Observation (INO) | payer MEDICARE, MEDICAID ==
--- NOTE | 2018-06-14 14:46 | ER Document Report ---
ED Cardiac - General Chief Complaint: Palpitations Stated Complaint: HEART PALPITATIONS Time Seen by Provider: 06/14/18 14:41 Notes: The patient is a 57-year-old female, past medical history ESRD ([facility]), CAD, pleural effusion, presents from the dialysis center after she felt his heart racing with tingling of her left arm and feeling slightly lightheaded for a few seconds. She broke into a cold sweat. The episode resolved after she was given 81 mg aspirin. She received 2 out of 4 hours of dialysis today. Patient had a heart stent placed at [facility] last week for an NSTEMI. She denies syncope, shortness of breath, current symptoms, nausea, vomiting, back pain, numbness, tingling or leg swelling. TRAVEL OUTSIDE OF THE [place] IN LAST 30 DAYS: No - Related Data Allergies/Adverse Reactions: No Known Allergies Allergy (Verified 06/01/18 01:17) Past Medical History - General Information source: Patient, Emergency Med Personnel - Social History Smoking Status: Unknown if Ever Smoked Family History: Reviewed & Not Pertinent - Past Medical History Cardiac Medical History: Reports: Hx Heart Attack - 12/2011 x 2, Hx Hypertension - COREG Pulmonary Medical History: Denies: Hx Asthma Neurological Medical History: Denies: Hx Cerebrovascular Accident, Hx Seizures Endocrine Medical History: Reports: Hx Diabetes Mellitus Type 2 - diet controlled Renal/ Medical History: Reports: Hx End Stage Renal Disease. Denies: Hx Peritoneal Dialysis GI Medical History: Denies: Hx Hepatitis, Hx Hiatal Hernia, Hx Ulcer Psychiatric Medical History: Reports: Hx Depression Infectious Medical History: Denies: Hx Hepatitis Past Surgical History: Reports: Hx Orthopedic Surgery - left leg amputated. Denies: Hx Mastectomy, Hx Open Heart Surgery, Hx Pacemaker Review of Systems - Review of Systems Notes: REVIEW OF SYSTEMS: CONSTITUTIONAL: -fevers, -chills EENT: -eye pain, -difficulty swallowing, -nasal congestion CARDIOVASCULAR: -chest pain, -syncope, +heart racing RESPIRATORY: -cough, -SOB GASTROINTESTINAL: -abdominal pain, -nausea, -vomiting, -diarrhea MUSCULOSKELETAL: -back pain, -neck pain SKIN: -rash or skin lesions. HEMATOLOGIC: -easy bruising or bleeding. LYMPHATIC: -swollen, enlarged glands. NEUROLOGICAL: -altered mental status or loss of consciousness, -headache, - neurologic symptoms PSYCHIATRIC: -anxiety, -depression. ALL OTHER SYSTEMS REVIEWED AND NEGATIVE. Physical Exam - Vital signs Vitals: Resp BP Pulse Ox 15 146/66 H 100 06/14/18 14:44 06/14/18 14:44 06/14/18 14:44 - Notes Notes: PHYSICAL EXAMINATION: GENERAL: Well-appearing, well-nourished and in no acute distress. HEAD: Atraumatic, normocephalic. EYES: Right eye with chronic changes. ENT: nares patent, oropharynx clear without exudates. Moist mucous membranes. NECK: Normal range of motion, supple without lymphadenopathy LUNGS: Breath sounds clear to auscultation bilaterally and equal. No wheezes rales or rhonchi. HEART: Regular rate and rhythm without murmurs ABDOMEN: Soft, nontender, normoactive bowel sounds. No guarding, no rebound. No masses appreciated. EXTREMITIES: Left AKA. NEUROLOGICAL: Cranial nerves grossly intact. Normal speech. Normal sensory and motor exams. PSYCH: Normal mood, normal affect. SKIN: Warm, Dry, normal turgor, no rashes or lesions noted. Course - Re-evaluation Re-evalutation: Patient with 6-8 seconds of feeling her heart racing, becoming diaphoretic and slightly lightheaded. With her recent cardiac stent placement 1.5 weeks ago, concern for dangerous arrhythmia. She has remained in normal sinus rhythm while in the emergency room. Her EKG shows some new ST depressions from 2 weeks ago in the lateral leads, but 2 sets of troponins are negative for ACS. Patient remains without symptoms. She received half her dose of dialysis today , but does not require any emergent dialysis. She requires observation overnight to assess for any arrhythmias. Patient is comfortable with plan. 06/14/18 17:[address] Schmitt (Hospitalist) and he will admit patient to Tele Obs. - Vital Signs Vital signs: Temp Pulse Resp BP Pulse Ox 98.3 F 15 146/66 H 100 06/14/18 14:53 06/14/18 14:44 06/14/18 14:44 06/14/18 14:49 - Laboratory Result Diagrams: 06/14/18 14:40 06/14/18 14:40 Laboratory results interpreted by me: 06/14/18 06/14/18 14:40 14:40 RBC 3.46 L Hgb 10.6 L Hct 31.8 L RDW 15.2 H BUN 23 H Creatinine 2.16 H Est GFR ( Amer) 28 L Est GFR (Non-Af Amer) 23 L Glucose 160 H Direct Bilirubin 0.6 H Alkaline Phosphatase 132 H Albumin 3.4 L - Diagnostic Test Radiology reviewed: Image reviewed, Reports reviewed Radiology results interpreted by me: CXR: Improved aeration bilaterally with minimal residual airspace opacities - small pleural effusion in the right lung base. - EKG Interpretation by Me EKG shows normal: Sinus rhythm Rate: Normal Voltage: Consistant with LVH When compared to previous EKG there are: Changes noted Additional EKG results interpreted by me: New ST depressions in lateral leads Discharge - Discharge Clinical Impression: Racing heart beat, Syncope, near Condition: Stable Disposition: ADMITTED OBSERVATION Admitting Provider: Hospitalist - [facility] Admitted: Telemetry
--- NOTE | 2018-06-14 15:04 | RADIOLOGY REPORT (SQ) ---
EXAM DESCRIPTION: CHEST SINGLE VIEW COMPLETED DATE/TIME: 06/14/2018 2:52 pm REASON FOR STUDY: cp COMPARISON: 06/01/2018 TECHNIQUE: Single frontal radiographic view of the chest acquired. NUMBER OF VIEWS: One view. LIMITATIONS: None. FINDINGS: LUNGS AND PLEURA: No pneumothorax. Improved aeration bilaterally with minimal residual ai rspace opacities -small pleural effusion in the right lung base. . MEDIASTINUM AND HILAR STRUCTURES: Stable. HEART AND VASCULAR STRUCTURES: Stable. BONES: No acute findings. HARDWARE: Right IJ dialysis catheter. OTHER: No other significant finding. IMPRESSION: Improved aeration bilaterally with minimal residual airspace opacities -small pleural ef fusion in the right lung base. TECHNICAL DOCUMENTATION: JOB ID: [id number] [place]-72 2010 [email or web address]- All Rights Reserved Reading location - IP/workstation name: [email or web address]
[2018-06-14 15:08] LABS: ABSOLUTE BASOPHILS # (AUTO) 0.1 10^3/uL (0.0-0.2); ABSOLUTE EOSINOPHILS # (AUTO) 0.3 10^3/uL (0.0-0.6); ABSOLUTE LYMPHOCYTES (AUTO) 1.6 10^3/uL (0.5-4.7); ABSOLUTE MONOCYTES (AUTO) 0.6 10^3/uL (0.1-1.4); ABSOLUTE NEUT (AUTO) 6.4 10^3/uL (1.7-8.2); BASOPHILS % (AUTO) 0.6 % (0-2); EOSINOPHILS % (AUTO) 3.8 % (0-6); HEMATOCRIT 31.8 % (36.0-47.0); HEMOGLOBIN 10.6 g/dL (12.0-15.5); LYMPHOCYTES % (AUTO) 17.5 % (13-45); MEAN CORPUSCULAR HEMOGLOBIN 30.6 pg (27.0-33.4); MEAN CORPUSCULAR HGB CONC 33.3 g/dL (32.0-36.0); MEAN CORPUSCULAR VOLUME 92 fl (80-97); MONOCYTES % (AUTO) 7.1 % (3-13); PLATELET COUNT 359 10^3/uL (150-450); RED BLOOD COUNT 3.46 10^6/uL (3.72-5.28); RED CELL DISTRIBUTION WIDTH 15.2 % (11.5-14.0); TOTAL CELLS COUNTED % (AUTO) 100 %; WHITE BLOOD COUNT 9.1 10^3/uL (4.0-10.5)
[2018-06-14 15:35] LABS: ALANINE AMINOTRANSFERASE 32 U/L (9-52); ALBUMIN 3.4 g/dL (3.5-5.0); ALKALINE PHOSPHATASE 132 U/L (38-126); ANION GAP 10 (5-19); ASPARTATE AMINO TRANSFERASE 36 U/L (14-36); BILIRUBIN,DIRECT 0.6 mg/dL (0.0-0.4); BILIRUBIN,TOTAL 0.6 mg/dL (0.2-1.3); BLOOD UREA NITROGEN 23 mg/dL (7-20); CALCIUM 8.6 mg/dL (8.4-10.2); CARBON DIOXIDE 28 mmol/L (22-30); CHLORIDE 100 mmol/L (98-107); CREATINE KINASE 59 U/L (30-135); GLUCOSE 160 mg/dL (75-110); POTASSIUM 3.9 mmol/L (3.6-5.0); TOTAL PROTEIN 6.7 g/dL (6.3-8.2)
[2018-06-14] MEDS ORDERED: GLUCAGON,HUMAN RECOMB 1 MG INJ IM PRN (18:50)
[2018-06-14] MEDS ORDERED: INSULIN LISPRO 100 UNIT/ML 3 ML VIAL SUBCUT PRN (18:50)
[2018-06-14] MEDS ORDERED: DEXTROSE 40% GEL 15 GM TUBE PO PRN ×2 (18:50)
[2018-06-14] MEDS ORDERED: DEXTROSE 50%-WATER 25 GM/50 ML DISP.SYRIN IV PRN ×2 (18:50)
--- NOTE | 2018-06-14 18:51 | PDOC H&P ---
History of Present Illness Admission Date/PCP: 06/14/18 17:54 Patient complains of: Chest pain History of Present Illness: ASHLEY GARCIA is a 57 year old female who has insulin-dependent diabetes, hypertension, dyslipidemia, coronary artery disease with recent stent placed a week ago, end-stage renal disease started dialysis about 2 months ago. Patient was at dialysis today, she felt fluttering and racing heart rate on her left chest and aching pain on her left arm and also felt lightheadedness. This lasted a few seconds. She was 2 hours since started her dialysis and she normally takes 4 hours for her dialysis session. Her dialysis was aborted and she was transferred to the emergency room. Apparently her heart rate was in the 90s and her pressure was normal during the episode when was checked in a dialysis center. Her EKGs showed left ventricular hypertrophy with repolarization. Troponins are 0.035 and 0.038. Past Medical History Cardiac Medical History: Reports: Myocardial Infarction - 12/2011 x 2, Hypertension - COREG Pulmonary Medical History: Denies: Asthma Neurological Medical History: Denies: Seizures Endocrine Medical History: Reports: Diabetes Mellitus Type 2 - diet controlled Renal/ Medical History: Reports: End Stage Renal Disease GI Medical History: Denies: Hepatitis, Hiatal Hernia Psychiatric Medical History: Reports: Depression Hematology: Denies: Anemia, Sickle Cell Disease Past Surgical History Past Surgical History: Reports: Amputation - LT LEG above knee amputation, Orthopedic Surgery - left leg amputated Denies: Mastectomy, Pacemaker Social History Smoking Status: Unknown if Ever Smoked Frequency of Alcohol Use: None Hx Recreational Drug Use: No Drugs: None Hx Prescription Drug Abuse: No Family History Family History: CAD Parental Family History Reviewed: Yes Children Family History Reviewed: Yes Sibling(s) Family History Reviewed.: Yes Medication/Allergy Home Medications: Amlodipine Besylate [Norvasc 5 mg Tablet] 5 mg PO DAILY 05/27/18 Aspirin [Adult Aspirin] 81 mg PO DAILY 05/27/18 Atorvastatin Calcium [Lipitor 80 mg Tablet] 80 mg PO QHS 05/27/18 Carvedilol [Coreg 6.25 mg Tablet] 6.25 mg PO Q12 05/27/18 Clopidogrel Bisulfate [Plavix 75 mg Tablet] 75 mg PO DAILY 05/27/18 Furosemide [Lasix 40 mg Tablet] 60 mg PO Q12 #60 tablet 05/27/18 Insulin Detemir [Levemir Flextouch] 10 units SQ QPM 05/27/18 Lisinopril [Zestril] 20 mg PO DAILY 05/27/18 Allergies/Adverse Reactions: No Known Allergies Allergy (Verified 06/01/18 01:17) Review of Systems All systems: reviewed and no additional remarkable complaints except as stated Physical Exam Vital Signs: Temp Pulse Resp BP Pulse Ox 98.3 F 16 163/61 H 100 06/14/18 14:53 06/14/18 18:00 06/14/18 18:00 06/14/18 18:00 General appearance: PRESENT: no acute distress, well-developed, well-nourished Head exam: PRESENT: atraumatic, normocephalic Eye exam: PRESENT: other - The right eye is status post enoculation due to infection due to diabetes Ear exam: PRESENT: normal external ear exam Mouth exam: PRESENT: moist, tongue midline Neck exam: ABSENT: carotid bruit, JVD, lymphadenopathy, thyromegaly Respiratory exam: PRESENT: clear to auscultation devante. ABSENT: rales, rhonchi, wheezes Cardiovascular exam: PRESENT: irregular rhythm. ABSENT: diastolic murmur, rubs , systolic murmur Pulses: PRESENT: normal dorsalis pedis pul Vascular exam: PRESENT: normal capillary refill GI/Abdominal exam: PRESENT: normal bowel sounds, soft. ABSENT: distended, guarding, mass, organolmegaly, rebound, tenderness Rectal exam: PRESENT: deferred Extremities exam: PRESENT: other - Left above-knee amputation Neurological exam: PRESENT: alert, awake, oriented to person, oriented to place , oriented to time, oriented to situation, CN II-XII grossly intact. ABSENT: motor sensory deficit Psychiatric exam: PRESENT: appropriate affect, normal mood. ABSENT: homicidal ideation, suicidal ideation Skin exam: PRESENT: dry, intact, warm. ABSENT: cyanosis, rash Results Impressions: Chest X-Ray 06/14/18 14:33 IMPRESSION: Improved aeration bilaterally with minimal residual airspace opacities -small pleural effusion in the right lung base. Assessment & Plan - Diagnosis (1) Racing heart beat Is this a current diagnosis for this admission?: Yes Plan: During my exam the patient had frequent PVCs We will check TSH and check serial troponins and get an echocardiogram We will also consult cardiology She is status post coronary stent a week ago She has had a total of 3 stents in her heart Arrhythmia of that sort is not uncommon after NH Continue beta-suhail treatment (2) Syncope, near Is this a current diagnosis for this admission?: Yes Plan: She felt slightly lightheaded for a few seconds during dialysis Apparently her pressure was okay per report Most likely due to arrhythmia (3) CAD (coronary artery disease) Is this a current diagnosis for this admission?: Yes Plan: Continue aspirin Plavix Coreg lisinopril statin and other chronic medications for coronary artery disease (4) Diabetes mellitus type 2 in nonobese Is this a current diagnosis for this admission?: Yes Plan: Continue insulin home dose Monitor fingerstick glucose (5) ESRD (end stage renal disease) Is this a current diagnosis for this admission?: Yes Plan: She will probably be discharged tomorrow She has had dialysis today She and up staying more we will consult nephrology (6) Hypertension Qualifiers: Is this a current diagnosis for this admission?: Yes Plan: Continue amlodipine and other medications Monitor blood pressure
[2018-06-14] MEDS ORDERED: FUROSEMIDE 40 MG TABLET PO ONE (19:00)
[2018-06-14] MEDS ORDERED: INSULIN DETEMIR 100 UNIT/ML 3 ML PEN SUBCUT ONE ×2 (19:00→19:03)
[2018-06-14] MEDS ORDERED: CLOPIDOGREL BISULFATE 75 MG TABLET PO ONE (19:00)
--- NOTE | 2018-06-14 20:21 | EKG REPORT ---
SEVERITY:- ABNORMAL ECG - SINUS RHYTHM LVH WITH SECONDARY REPOLARIZATION ABNORMALITY : Confirmed by: Marcelle Rausch MD 14-Jun-2018 20:21:11
[2018-06-14] MEDS ORDERED: CARVEDILOL 6.25 MG TABLET PO SCH (22:00)
[2018-06-14] MEDS: ATORVASTATIN CALCIUM 80 MG TABLET PO SCH (23:37)
[2018-06-15] MEDS ORDERED: LOPERAMIDE HCL 2 MG CAPSULE PO ONE (04:45)
[2018-06-15] MEDS ORDERED: LOPERAMIDE HCL 2 MG CAPSULE ONE (06:10)
[2018-06-15 08:17] LABS: FREE T3 4.4 pg/mL (2.77-5.27); FREE T4 (FREE THYROXINE) 3.56 ng/dL (0.78-2.19)
[2018-06-15] MEDS: FUROSEMIDE 40 MG TABLET PO SCH ×2 (10:14→17:10)
[2018-06-15] MEDS: CLOPIDOGREL BISULFATE 75 MG TABLET PO SCH (10:15)
[2018-06-15] MEDS: AMLODIPINE BESYLATE 5 MG TABLET PO SCH (10:15)
[2018-06-15] MEDS: CARVEDILOL 12.5 MG TABLET PO SCH ×2 (10:15→21:25)
[2018-06-15] MEDS: ASPIRIN 81 MG TABLET, ENT COATED PO SCH (10:15)
[2018-06-15] MEDS: LISINOPRIL 10 MG TABLET PO SCH (10:15)
--- NOTE | 2018-06-15 16:15 | PDOC PROGRESS REPORT ---
Subjective Progress Note for:: 06/15/18 Subjective:: patient had diarrhea last night and did not sleep well denies chest pain or shortness of breath frequent PVCs and a segemnt of bigeminy TSH low and elevated T4 Reason For Visit: LIGHTHEADED Physical Exam Vital Signs: Temp Pulse Resp BP Pulse Ox 99.0 F 85 16 132/58 H 100 06/15/18 15:30 06/15/18 15:30 06/15/18 15:30 06/15/18 15:30 06/15/18 15:30 Intake & Output 06/14/18 06/15/18 06/16/18 06:59 06:59 06:59 Intake Total 150 Balance 150 General appearance: PRESENT: no acute distress, well-developed, well-nourished Head exam: PRESENT: atraumatic, normocephalic Ear exam: PRESENT: normal external ear exam Mouth exam: PRESENT: moist, tongue midline Neck exam: ABSENT: carotid bruit, JVD, lymphadenopathy, thyromegaly Respiratory exam: PRESENT: clear to auscultation devante. ABSENT: rales, rhonchi, wheezes Cardiovascular exam: PRESENT: RRR. ABSENT: diastolic murmur, rubs, systolic murmur Pulses: PRESENT: normal dorsalis pedis pul Vascular exam: PRESENT: normal capillary refill GI/Abdominal exam: PRESENT: normal bowel sounds, soft. ABSENT: distended, guarding, mass, organolmegaly, rebound, tenderness Rectal exam: PRESENT: deferred Extremities exam: PRESENT: full ROM. ABSENT: calf tenderness, clubbing, pedal edema Neurological exam: PRESENT: alert, awake, oriented to person, oriented to place , oriented to time, oriented to situation, CN II-XII grossly intact. ABSENT: motor sensory deficit Psychiatric exam: PRESENT: appropriate affect, normal mood. ABSENT: homicidal ideation, suicidal ideation Skin exam: PRESENT: dry, intact, warm. ABSENT: cyanosis, rash Results Laboratory Results: 06/14/18 19:23 Troponin I 0.049 Impressions: Chest X-Ray 06/14/18 14:33 IMPRESSION: Improved aeration bilaterally with minimal residual airspace opacities -small pleural effusion in the right lung base. Assessment & Plan - Diagnosis (1) Racing heart beat Is this a current diagnosis for this admission?: Yes Plan: She is status post coronary stent a week ago She has had a total of 3 stents in her heart no further symptoms (2) Syncope, near Is this a current diagnosis for this admission?: Yes Plan: She felt slightly lightheaded for a few seconds during dialysis Apparently her pressure was okay per report (3) CAD (coronary artery disease) Is this a current diagnosis for this admission?: Yes Plan: Continue aspirin Plavix Coreg lisinopril statin and other chronic medications for coronary artery disease (4) Diabetes mellitus type 2 in nonobese Is this a current diagnosis for this admission?: Yes Plan: Continue insulin home dose Monitor fingerstick glucose (5) ESRD (end stage renal disease) Is this a current diagnosis for this admission?: Yes Plan: consult nephrology (6) Hypertension Qualifiers: Is this a current diagnosis for this admission?: Yes Plan: Continue amlodipine and other medications Monitor blood pressure (7) Hyperthyroidism Is this a current diagnosis for this admission?: Yes Plan: increase coreg dose follow outpatient - Plan Summary Plan Summary: discussed with Dr Kendrick. will ask for records for her recent cath and stent. no need for echo for now till we review the records
[2018-06-15] MEDS ORDERED: GLUCAGON,HUMAN RECOMB 1 MG INJ IM PRN (16:19)
[2018-06-15] MEDS ORDERED: DEXTROSE 40% GEL 15 GM TUBE PO PRN ×2 (16:19)
[2018-06-15] MEDS ORDERED: DEXTROSE 50%-WATER 25 GM/50 ML DISP.SYRIN IV PRN ×2 (16:19)
[2018-06-15] MEDS: INSULIN DETEMIR 100 UNIT/ML 3 ML PEN SUBCUT SCH (17:11)
[2018-06-15] MEDS: ATORVASTATIN CALCIUM 80 MG TABLET PO SCH (21:25)
[2018-06-16] MEDS ORDERED: EPOETIN ALFA INJ 20000 UNIT/1 ML VIAL (RENAL) IV PRN (08:34)
[2018-06-16] MEDS ORDERED: EPOETIN ALFA 5,000 UNIT in SYRINGE, DISPOSABLE, 1 EACH IV PRN (08:50)
--- NOTE | 2018-06-16 12:27 | PDOC DISCHARGE SUMMARY ---
General - Admit/Disc Date/PCP Admission Date/Primary Care Provider: 06/14/18 17:54 Discharge Date: 06/16/18 - Discharge Diagnosis (1) Racing heart beat Is this a current diagnosis for this admission?: Yes (2) Syncope, near Is this a current diagnosis for this admission?: Yes (3) CAD (coronary artery disease) Is this a current diagnosis for this admission?: Yes (4) Diabetes mellitus type 2 in nonobese Is this a current diagnosis for this admission?: Yes (5) ESRD (end stage renal disease) Is this a current diagnosis for this admission?: Yes (6) Hypertension Is this a current diagnosis for this admission?: Yes (7) Hyperthyroidism Is this a current diagnosis for this admission?: Yes - Additional Information Discharge Diet: As Tolerated Discharge Activity: Activity As Tolerated Prescriptions: Carvedilol [Coreg 12.5 mg Tablet] 12.5 mg PO Q12 #60 tablet Home Medications: Amlodipine Besylate [Norvasc 5 mg Tablet] 5 mg PO DAILY 06/15/18 B Complex W-C No.20/Folic Acid [Nephrocaps Softgel] 3 mg PO WSUPPER 06/15/18 Clopidogrel Bisulfate [Plavix 75 mg Tablet] 75 mg PO DAILY 06/15/18 Docusate Sodium [Colace 100 mg Capsule] 100 mg PO TID 06/15/18 Lisinopril [Zestril] 20 mg PO DAILY 06/15/18 Pravastatin Sodium [Pravachol] 40 mg PO DAILY 06/15/18 Carvedilol [Coreg 12.5 mg Tablet] 12.5 mg PO Q12 #60 tablet 06/16/18 History of Present Illness History of Present Illness: ASHLEY GARCIA is a 57 year old female who has insulin-dependent diabetes, hypertension, dyslipidemia, coronary artery disease with recent stent placed a week ago, end-stage renal disease started dialysis about 2 months ago. Patient was at dialysis today, she felt fluttering and racing heart rate on her left chest and aching pain on her left arm and also felt lightheadedness. This lasted a few seconds. She was 2 hours since started her dialysis and she normally takes 4 hours for her dialysis session. Her dialysis was aborted and she was transferred to the emergency room. Apparently her heart rate was in the 90s and her pressure was normal during the episode when was checked in a dialysis center. Her EKGs showed left ventricular hypertrophy with repolarization. Troponins are 0.035 and 0.038. Hospital Course Hospital Course: (1) Racing heart beat She is status post coronary stent 2 weeks ago She has had a total of 3 stents in her heart no further symptoms since hospitalization (2) Syncope, near She felt slightly lightheaded for a few seconds during dialysis Apparently her pressure was okay per report (3) CAD (coronary artery disease) Continued aspirin Plavix Coreg lisinopril statin and other chronic medications for coronary artery disease (4) Diabetes mellitus type 2 in nonobese Continued insulin home dose Monitor fingerstick glucose (5) ESRD (end stage renal disease) consulted nephrology (6) Hypertension Continued amlodipine and other medications Monitored blood pressure (7) Hyperthyroidism increased coreg dose followup outpatient Plan Summary: discussed with Dr Kendrick. He reviewed records for her recent cath and stent. no need for echo. ok for d/c and follow up with him outpatient Physical Exam Vital Signs: Temp Pulse Resp BP Pulse Ox 98.5 F 73 15 143/48 H 99 06/16/18 07:30 06/16/18 07:30 06/16/18 07:30 06/16/18 07:30 06/16/18 07:30 Intake & Output 06/15/18 06/16/18 06/17/18 06:59 06:59 06:59 Intake Total 150 366 Balance 150 366 General appearance: PRESENT: no acute distress, well-developed, well-nourished Head exam: PRESENT: atraumatic, normocephalic Eye exam: PRESENT: conjunctiva pink, EOMI, PERRLA. ABSENT: scleral icterus Ear exam: PRESENT: normal external ear exam Mouth exam: PRESENT: moist, tongue midline Neck exam: ABSENT: carotid bruit, JVD, lymphadenopathy, thyromegaly Respiratory exam: PRESENT: clear to auscultation devante. ABSENT: rales, rhonchi, wheezes Cardiovascular exam: PRESENT: RRR. ABSENT: diastolic murmur, rubs, systolic murmur Pulses: PRESENT: normal dorsalis pedis pul Vascular exam: PRESENT: normal capillary refill GI/Abdominal exam: PRESENT: normal bowel sounds, soft. ABSENT: distended, guarding, mass, organolmegaly, rebound, tenderness Rectal exam: PRESENT: deferred Extremities exam: PRESENT: full ROM. ABSENT: calf tenderness, clubbing, pedal edema Neurological exam: PRESENT: alert, awake, oriented to person, oriented to place , oriented to time, oriented to situation, CN II-XII grossly intact. ABSENT: motor sensory deficit Psychiatric exam: PRESENT: appropriate affect, normal mood. ABSENT: homicidal ideation, suicidal ideation Skin exam: PRESENT: dry, intact, warm. ABSENT: cyanosis, rash Results Laboratory Results: 06/14/18 19:23 Troponin I 0.049 Impressions: Chest X-Ray 06/14/18 14:33 IMPRESSION: Improved aeration bilaterally with minimal residual airspace opacities -small pleural effusion in the right lung base. Qualifiers - * PATIENT BEING DISCHARGED WITH ANY OF THE FOLLOWING DIAGNOSIS: No
[2018-06-16] MEDS: FUROSEMIDE 40 MG TABLET PO SCH ×2 (13:13→17:23)
[2018-06-16] MEDS: ASPIRIN 81 MG TABLET, ENT COATED PO SCH (13:13)
[2018-06-16] MEDS: LISINOPRIL 10 MG TABLET PO SCH (13:13)
[2018-06-16 13:14] LABS: ANION GAP 12 (5-19); BLOOD UREA NITROGEN 66 mg/dL (7-20); CALCIUM 9.2 mg/dL (8.4-10.2); CARBON DIOXIDE 26 mmol/L (22-30); CHLORIDE 104 mmol/L (98-107); GLUCOSE 124 mg/dL (75-110); SODIUM 141.6 mmol/L (137-145)
[2018-06-16] MEDS: CARVEDILOL 12.5 MG TABLET PO SCH (13:14)
[2018-06-16] MEDS: AMLODIPINE BESYLATE 5 MG TABLET PO SCH (13:14)
[2018-06-16] MEDS: CLOPIDOGREL BISULFATE 75 MG TABLET PO SCH (14:24)
[2018-06-16 15:48] VITALS: BP 123/46
--- NOTE | 2018-06-16 17:03 | PDOC CONSULTATION ---
Consultation Consult Date: 06/16/18 Consult reason:: ESRD for dialysis. History of Present Illness Admission Date/PCP: 06/14/18 17:54 History of Present Illness: ASHLEY GARCIA is a 57 year old female with a h/o DM, CAD who had a PTCA done recently, Hypertension, ESRD on dialysis was admitted with palpitations and feeling lightheaded while undergoing dialysis on saturday. She is currently being seen while undergoing dialysis and she feels good. No further recurrence of those symptoms. Labs and medications were reviewed.Dialysis orders were reviewed with the treating batter scaler. Past Medical History Cardiac Medical History: Reports: Hypertension-primary, Myocardial Infarction - 12/2011 x 2, 05/2018 x1 with stent placement Pulmonary Medical History: Denies: Asthma Neurological Medical History: Denies: Seizures Endocrine Medical History: Reports: Diabetes Mellitus Type 2 - diet controlled Renal/ Medical History: Reports: End Stage Renal Disease, Secondary Hyperparathyroidism GI Medical History: Denies: Hepatitis, Hiatal Hernia Psychiatric Medical History: Reports: Depression Hematology Medical History: Reports Anemia of Chronic Kidney Disease Past Surgical History Past Surgical History: Reports: Orthopedic Surgery - left leg amputated Denies: Mastectomy, Pacemaker Social History Smoking Status: Former Smoker Frequency of Alcohol Use: None Hx Recreational Drug Use: No Drugs: None Hx Prescription Drug Abuse: No Family History Parental Family History Reviewed: Yes - negative for esrd Children Family History Reviewed: No Sibling(s) Family History Reviewed.: No Medication/Allergy Home Medications: Amlodipine Besylate [Norvasc 5 mg Tablet] 5 mg PO DAILY 06/15/18 B Complex W-C No.20/Folic Acid [Nephrocaps Softgel] 3 mg PO WSUPPER 06/15/18 Clopidogrel Bisulfate [Plavix 75 mg Tablet] 75 mg PO DAILY 06/15/18 Docusate Sodium [Colace 100 mg Capsule] 100 mg PO TID 06/15/18 Lisinopril [Zestril] 20 mg PO DAILY 06/15/18 Pravastatin Sodium [Pravachol] 40 mg PO DAILY 06/15/18 Carvedilol [Coreg 12.5 mg Tablet] 12.5 mg PO Q12 #60 tablet 06/16/18 Allergies/Adverse Reactions: No Known Allergies Allergy (Verified 06/01/18 01:17) Review of Systems Constitutional: PRESENT: fatigue. ABSENT: fever(s), headache(s), night sweats Nose, Mouth, and Throat: ABSENT: headache(s), mouth pain, sore throat, vertigo Cardiovascular: PRESENT: dyspnea on exertion. ABSENT: chest pain, edema, orthropnea, palpitations Gastrointestinal: ABSENT: abdominal pain, bloating, diarrhea, dysphagia, hematemesis, nausea, vomiting Genitourinary: ABSENT: dysuria, hematuria Neurological: ABSENT: focal weakness, frequent falls Hematologic/Lymphatic: ABSENT: easy bleeding, easy bruising, lymphadenopathy Physical Exam Vital Signs: Temp Pulse Resp BP Pulse Ox 98.8 F 72 17 123/46 L 100 06/16/18 15:19 06/16/18 15:19 06/16/18 15:19 06/16/18 15:19 06/16/18 15:19 Intake & Output 06/15/18 06/16/18 06/17/18 06:59 06:59 06:59 Intake Total 150 366 Output Total 0 Balance 150 366 0 General appearance: PRESENT: no acute distress Eye exam: PRESENT: conjunctiva pink, EOMI, PERRLA Ear exam: PRESENT: normal external ear exam Mouth exam: PRESENT: moist, neck supple Neck exam: ABSENT: lymphadenopathy, meningismus, tenderness, thyromegaly, tracheal deviation Cardiovascular exam: PRESENT: +S1, +S2, systolic murmur GI/Abdominal exam: PRESENT: normal bowel sounds, soft. ABSENT: organomegaly, tenderness Extremities exam: ABSENT: pedal edema Neurological exam: PRESENT: alert, awake, oriented to person, oriented to place , oriented to time Skin exam: PRESENT: dry. ABSENT: erythema, rash Results Laboratory Results: 06/16/18 10:15 06/16/18 10:15 Sodium 141.6 Potassium 4.0 Chloride 104 Carbon Dioxide 26 Anion Gap 12 BUN 66 H Creatinine 5.32 H Est GFR ( Amer) 10 L Est GFR (Non-Af Amer) 8 L Glucose 124 H Calcium 9.2 06/14/18 19:23 Troponin I 0.049 Impressions: Chest X-Ray 06/14/18 14:33 IMPRESSION: Improved aeration bilaterally with minimal residual airspace opacities -small pleural effusion in the right lung base. Assessment & Plan - Diagnosis (1) Syncope, near Is this a current diagnosis for this admission?: Yes Plan: ? from over UF on dialysis. Will adjust dry weight and increase her EDW by 1 Kg and monitor. (2) CAD (coronary artery disease) Is this a current diagnosis for this admission?: Yes Plan: s/p recent PTCA.As per cardiology.Currently stable. (3) Diabetes mellitus type 2 in nonobese Is this a current diagnosis for this admission?: Yes Plan: Adv tight control. (4) ESRD (end stage renal disease) Is this a current diagnosis for this admission?: Yes Plan: Currently being dialysed. VS are stable.Its being supervised to ensure a safe and smooth procedure.Plan to remove no fluid as she is clinically dry. Will adjust her dry weight at [facility]. Orders were discussed with treating batter scaler. (5) Hypertension Qualifiers: Is this a current diagnosis for this admission?: Yes Plan: Controlled.
[2018-06-16] MEDS: INSULIN DETEMIR 100 UNIT/ML 3 ML PEN SUBCUT SCH (17:22)
== END 2018-06-16 18:45 ==
LOC: ER 14:28 → EH 17:54 → 5 22:00
PROVIDERS: ADMIT Family Medicine; ATTEND Family Medicine
PROC: 5A1D70Z Performance of Urinary Filtration, Intermittent, Less than 6 Hours Per Day (ICD-10-PCS; principal; 2018-06-16)
PROC: 3E01340 Introduction of Influenza Vaccine into Subcutaneous Tissue, Percutaneous Approach (ICD-10-PCS; 2018-06-16)
DX: R00.0 Tachycardia, unspecified (principal); R55 Syncope and collapse; I25.10 Atherosclerotic heart disease of native coronary artery without angina pectoris; I12.0 Hypertensive chronic kidney disease with stage 5 chronic kidney disease or end stage renal disease; E11.22 Type 2 diabetes mellitus with diabetic chronic kidney disease; N18.6 End stage renal disease; E05.90 Thyrotoxicosis, unspecified without thyrotoxic crisis or storm; E78.5 Hyperlipidemia, unspecified; M79.602 Pain in left arm; R42 Dizziness and giddiness; R06.00 Dyspnea, unspecified; R53.83 Other fatigue; I25.2 Old myocardial infarction; I49.3 Ventricular premature depolarization; Z79.899 Other long term (current) drug therapy; Z79.02 Long term (current) use of antithrombotics/antiplatelets; Z79.4 Long term (current) use of insulin; Z95.5 Presence of coronary angioplasty implant and graft; Z89.612 Acquired absence of left leg above knee; Z87.891 Personal history of nicotine dependence; Z82.49 Family history of ischemic heart disease and other diseases of the circulatory system; Z99.2 Dependence on renal dialysis; Z23 Encounter for immunization
CPT/HCPCS: 93005; 99285; 36415 ×2; 84439; 82962 ×2; 82550; 84443; 85025; 80048; 80053; 84484; 84481; 87493; 71045; 90686; 93010; G0378 ×4; A9270 ×17; Q4081; J3490; G0257; J1815

== ENCOUNTER 2018-08-08 14:55 | Emergency (ER) | payer MEDICARE, MEDICAID ==
--- NOTE | 2018-08-08 16:15 | ER Document Report ---
ED Medical Screen (RME) - General Chief Complaint: Foot Pain Stated Complaint: FOOT WOUND Time Seen by Provider: 08/08/18 16:03 Notes: 58-year-old diabetic female comes for right foot wound infection. She reports scraping her dorsal foot with a tennis shoe, and at some point hitting the foot or toes against the wheelchair she was using while she was over at [facility] for rehab. She had a coronary artery stent placed in mid to late May, and had a power port placed in the left arm about a month ago. Her vision and her remaining left is quite poor so she was not aware that the foot was beginning to look so poorly. I have greeted and performed a rapid initial assessment of this patient. A comprehensive ED assessment and evaluation of the patient, analysis of test results and completion of the medical decision making process will be conducted by additional ED providers. TRAVEL OUTSIDE OF THE [place] IN LAST 30 DAYS: No - Related Data Allergies/Adverse Reactions: No Known Allergies Allergy (Verified 06/01/18 01:17) Past Medical History - Social History Chew tobacco use (# tins/day): No Drug Abuse: None - Past Medical History Cardiac Medical History: Reports: Hx Heart Attack - 12/2011 x 2, 05/2018 x1 with stent placement, Hx Hypertension - COREG Pulmonary Medical History: Denies: Hx Asthma Neurological Medical History: Denies: Hx Cerebrovascular Accident, Hx Seizures Endocrine Medical History: Reports: Hx Diabetes Mellitus Type 2 - diet controlled Renal/ Medical History: Reports: Hx End Stage Renal Disease. Denies: Hx Peritoneal Dialysis GI Medical History: Denies: Hx Hepatitis, Hx Hiatal Hernia, Hx Ulcer Psychiatric Medical History: Reports: Hx Depression Infectious Medical History: Denies: Hx Hepatitis Past Surgical History: Reports: Hx Orthopedic Surgery - left leg amputated. Denies: Hx Mastectomy, Hx Open Heart Surgery, Hx Pacemaker - Immunizations History of Influenza Vaccine for 06/2017 - 11/2017 Season: No Physical Exam - Vital signs Vitals: Temp Pulse Resp BP Pulse Ox 98.6 F 69 18 135/44 H 97 08/08/18 15:02 08/08/18 15:02 08/08/18 15:02 08/08/18 15:02 08/08/18 15:02 Course - Vital Signs Vital signs: Temp Pulse Resp BP Pulse Ox 98.6 F 69 18 135/44 H 97 08/08/18 15:02 08/08/18 15:02 08/08/18 15:02 08/08/18 15:02 08/08/18 15:02 Doctor's Discharge - Discharge Referrals: LISA BLANCHARD, DO [Primary Care Provider] - Follow up as needed
[2018-08-08 17:16] LABS: ABSOLUTE BASOPHILS # (AUTO) 0.1 10^3/uL (0.0-0.2); ABSOLUTE EOSINOPHILS # (AUTO) 0.1 10^3/uL (0.0-0.6); ABSOLUTE LYMPHOCYTES (AUTO) 1.6 10^3/uL (0.5-4.7); ABSOLUTE MONOCYTES (AUTO) 0.8 10^3/uL (0.1-1.4); ABSOLUTE NEUT (AUTO) 8.1 10^3/uL (1.7-8.2); BASOPHILS % (AUTO) 0.5 % (0-2); EOSINOPHILS % (AUTO) 1.4 % (0-6); HEMATOCRIT 28.7 % (36.0-47.0); HEMOGLOBIN 9.2 g/dL (12.0-15.5); LYMPHOCYTES % (AUTO) 15.3 % (13-45); MEAN CORPUSCULAR HEMOGLOBIN 28.8 pg (27.0-33.4); MEAN CORPUSCULAR HGB CONC 32.2 g/dL (32.0-36.0); MEAN CORPUSCULAR VOLUME 90 fl (80-97); MONOCYTES % (AUTO) 7.1 % (3-13); PLATELET COUNT 467 10^3/uL (150-450); RED CELL DISTRIBUTION WIDTH 17.3 % (11.5-14.0); SEGMENTED NEUTROPHILS % (AUTO) 75.7 % (42-78); TOTAL CELLS COUNTED % (AUTO) 100 %; WHITE BLOOD COUNT 10.7 10^3/uL (4.0-10.5)
--- NOTE | 2018-08-08 17:25 | RADIOLOGY REPORT (SQ) ---
EXAM DESCRIPTION: FOOT RIGHT COMPLETE COMPLETED DATE/TIME: 08/08/2018 5:16 pm REASON FOR STUDY: Infected wounds in diabetic foot COMPARISON: None. NUMBER OF VIEWS: Three views. TECHNIQUE: AP, lateral and oblique radiographic images acquired of the right foot. LIMITATIONS: None. FINDINGS: MINERALIZATION: Normal. BONES: No fracture or dislocation. Prominent plantar calcaneal spur. Smaller dorsal calcaneal spur. No evidence of osteomyelitis. JOINTS: No effusions. SOFT TISSUES: No soft tissue swelling. No foreign body. OTHER: No other significant finding. IMPRESSION: Calcaneal spurs. No evidence of osteomyelitis. TECHNICAL DOCUMENTATION: JOB ID: [id number] [employer]- All Rights Reserved Reading location - IP/workstation name: [email or web address]
[2018-08-08 17:35] LABS: ALANINE AMINOTRANSFERASE 13 U/L (9-52); ALBUMIN 3.4 g/dL (3.5-5.0); ALKALINE PHOSPHATASE 169 U/L (38-126); ANION GAP 16 (5-19); ASPARTATE AMINO TRANSFERASE 15 U/L (14-36); BILIRUBIN,DIRECT 0.4 mg/dL (0.0-0.4); BILIRUBIN,TOTAL 0.4 mg/dL (0.2-1.3); BLOOD UREA NITROGEN 48 mg/dL (7-20); CALCIUM 8.7 mg/dL (8.4-10.2); CARBON DIOXIDE 28 mmol/L (22-30); CHLORIDE 103 mmol/L (98-107); GLUCOSE 148 mg/dL (75-110); POTASSIUM 3.7 mmol/L (3.6-5.0); SODIUM 146.7 mmol/L (137-145)
--- NOTE | 2018-08-08 20:11 | ER Document Report ---
ED General - General Chief Complaint: Foot Pain Stated Complaint: FOOT WOUND Time Seen by Provider: 08/08/18 16:03 Notes: Patient is a 58-year-old female who presents to the emergency department with a right foot wound. She states that she has been hitting her foot on the wheelchair, and has not been wearing her tennis shoes to help protect her feet. This happened about 3 weeks ago. She has been living at [facility] and yesterday she was released to go home. She states that she has a hard time seeing, therefore she did not know how bad the wound was. The home health nurse saw her today and told her to come to the emergency department to have her foot looked at. She denies any pain, fever, or any symptoms. She has a history of end-stage renal disease on hemodialysis, diabetes, hypertension, and left [id number]-[id number] amputation that was done in 2010. She does have a right subclavian dialysis catheter. It appears as if there was an attempt to place a left forearm fistula, but she states she does not know if the procedure was successful. TRAVEL OUTSIDE OF THE [place] IN LAST 30 DAYS: No - Related Data Allergies/Adverse Reactions: No Known Allergies Allergy (Verified 06/01/18 01:17) Past Medical History - Social History Smoking Status: Never Smoker Chew tobacco use (# tins/day): No Drug Abuse: None Family History: CAD Patient has suicidal ideation: No Patient has homicidal ideation: No - Past Medical History Cardiac Medical History: Reports: Hx Heart Attack - 12/2011 x 2, 05/2018 x1 with stent placement, Hx Hypertension - COREG Pulmonary Medical History: Denies: Hx Asthma Neurological Medical History: Denies: Hx Cerebrovascular Accident, Hx Seizures Endocrine Medical History: Reports: Hx Diabetes Mellitus Type 2 - diet controlled Renal/ Medical History: Reports: Hx End Stage Renal Disease. Denies: Hx Peritoneal Dialysis GI Medical History: Denies: Hx Hepatitis, Hx Hiatal Hernia, Hx Ulcer Psychiatric Medical History: Reports: Hx Depression Infectious Medical History: Denies: Hx Hepatitis Past Surgical History: Reports: Hx Orthopedic Surgery - left leg amputated. Denies: Hx Mastectomy, Hx Open Heart Surgery, Hx Pacemaker Physical Exam - Vital signs Vitals: Temp Pulse Resp BP Pulse Ox 98.6 F 69 18 135/44 H 97 08/08/18 15:02 08/08/18 15:02 08/08/18 15:02 08/08/18 15:02 08/08/18 15:02 - Notes Notes: PHYSICAL EXAMINATION: GENERAL: Appears well, healthy, well-nourished, no acute distress. HEAD: Normocephalic, atraumatic. ENT: Moist mucous membranes. NECK: Supple, no noticeable swelling, redness, rash. Normal range of motion. LUNGS: Equal breath sounds bilaterally and clear to auscultation. No wheezes rales or rhonchi. CARDIOVASCULAR: S1-S2, regular rate, regular rhythm. Radial pulses 2+, normal. ABDOMEN: Normoactive bowel sounds. Soft, nontender, no guarding, no rebound tenderness, and no masses palpated. EXTREMITIES: Right foot eschar noted to multiple areas. Left czkww-lha-sdma amputation. NEUROLOGICAL: Moves all extremities upon command. Strength 5/5 in all extremities. PSYCH: Normal mood, normal affect. SKIN: Warm, dry. No rash noted. Eschar to right foot. Course - Re-evaluation Re-evalutation: 08/08/18 20:16 We will have the staff clean the wound with Hibiclens and then consult the surgicalist about patient's foot wound. 08/08/18 21:05 Her wound has been cleaned. I have spoke with Dr. Palacio and explained the patient 's situation, and Dr. Palacio states she needs to be admitted. I have attempted to contact Dr. Serrato via the assembling machine operator, to see if Dr. Serrato is able to manage her dialysis treatment. Her last hemodialysis treatment was Saturday and her next treatment is due tomorrow. She is normally on the Saturday, , Saturday schedule, but due to the holiday, her schedule was changed. 08/08/18 21:45 Dr. Palacio bedside to evaluate patient's foot. He states that she is going to have to be hospitalized and to have surgery in the next couple of days. He states that she has a foot. I have attempted to page Dr. Serrato again via the assembling machine operator. Will await a call back. 08/08/18 22:35 I have attempted to page Dr. Serrato for the third time. The assembling machine operator told me that he is not available for the weekend. Dr. Damico is not available at this time either. Due to the circumstances, the patient will need to be transferred to another facility. She is requesting to go to [facility], where she has been before. 08/08/18 23:47 I have spoke with Dr. Pollard, from [facility]. He has accepted transfer. 08/09/18 03:53 I have been informed by the packing machine tender that the transport truck that was going to pick the patient up is now unable to. I have been asked if the patient is able to travel BLS. Her vital signs have been stable thus far. She is stable for BLS transfer. 08/09/18 07:41 This morning we received word that Dr. Serrato is covering for nephrology today starting at 8 AM. The ETA of transport team being care will be 10:[address] Serrato will be on today, we will attempt to call Dr. Serrato for consultation on her case. I have called Dr. Palacio to update him with this information. Report was given to LUÍS Montenegro. He will call the hospitalist and Dr. Serrato for admission. - Vital Signs Vital signs: Temp Pulse Resp BP Pulse Ox 99.7 F 76 14 147/47 H 93 08/09/18 06:58 08/09/18 06:58 08/09/18 06:58 08/09/18 06:58 08/09/18 06:58 - Laboratory Result Diagrams: 08/08/18 15:58 08/08/18 15:58 Laboratory results interpreted by me: 08/08/18 08/08/18 15:58 15:58 WBC 10.7 H RBC 3.20 L Hgb 9.2 L Hct 28.7 L RDW 17.3 H Plt Count 467 H Sodium 146.7 H BUN 48 H Creatinine 4.83 H Est GFR ( Amer) 11 L Est GFR (Non-Af Amer) 9 L Glucose 148 H Alkaline Phosphatase 169 H Albumin 3.4 L Discharge - Discharge Clinical Impression: End stage renal disease Diabetic foot ulcer Qualifiers: Diabetic foot ulcer location: unspecified part of foot Diabetes mellitus type: type 2 Laterality: right Non-pressure ulcer stage: unspecified non-pressure ulcer stage Qualified Code(s): E11.621 - Type 2 diabetes mellitus with foot ulcer Condition: Fair Disposition: [facility] Referrals: LISA BLANCHARD DO [Primary Care Provider] - Follow up as needed
--- NOTE | 2018-08-08 22:50 | PDOC CONSULTATION ---
History of Present Illness Admission Date/PCP: LISA BLANCHARD DO Patient complains of: Problems with right foot History of Present Illness: ASHLEY GARCIA is a 58 year old female with multiple medical problems including hypertension, coronary artery disease, diabetes, renal failure hemodialysis dependent, cigarette smoking abuse with history of left xodye-uyv-auhe amputation in the remote past and diabetic neuropathy who presents with unknown duration of dark discoloration of the right foot. No discharge and no fever. Patient had a myocardial infarction requiring stent placement couple of months ago. She has done well from this procedure. Patient has diabetic neuropathy and she does not have pain in her right foot. She states that she can put weight on her right foot during transfers. Past Medical History Cardiac Medical History: Reports: Myocardial Infarction - 12/2011 x 2, 05/2018 x1 with stent placement, Hypertension - COREG Pulmonary Medical History: Denies: Asthma Neurological Medical History: Denies: Seizures Endocrine Medical History: Reports: Diabetes Mellitus Type 2 - diet controlled Renal/ Medical History: Reports: End Stage Renal Disease GI Medical History: Denies: Hepatitis, Hiatal Hernia Psychiatric Medical History: Reports: Depression Hematology: Denies: Anemia, Sickle Cell Disease Past Surgical History Past Surgical History: Reports: Amputation - LT LEG above knee amputation, Orthopedic Surgery - left leg amputated, Other - Right eye enucleation Denies: Mastectomy, Pacemaker Social History Smoking Status: Never Smoker Frequency of Alcohol Use: None Hx Recreational Drug Use: No Drugs: None Hx Prescription Drug Abuse: No Family History Family History: CAD Parental Family History Reviewed: No Children Family History Reviewed: No Sibling(s) Family History Reviewed.: No Medication/Allergy Home Medications: Amlodipine Besylate [Norvasc 5 mg Tablet] 5 mg PO DAILY 06/15/18 B Complex W-C No.20/Folic Acid [Nephrocaps Softgel] 3 mg PO WSUPPER 06/15/18 Clopidogrel Bisulfate [Plavix 75 mg Tablet] 75 mg PO DAILY 06/15/18 Docusate Sodium [Colace 100 mg Capsule] 100 mg PO TID 06/15/18 Lisinopril [Zestril] 20 mg PO DAILY 06/15/18 Pravastatin Sodium [Pravachol] 40 mg PO DAILY 06/15/18 Carvedilol [Coreg 12.5 mg Tablet] 12.5 mg PO Q12 #60 tablet 06/16/18 Allergies/Adverse Reactions: No Known Allergies Allergy (Verified 06/01/18 01:17) Physical Exam Vital Signs: Temp Pulse Resp BP Pulse Ox 98.6 F 69 18 135/44 H 97 08/08/18 15:02 08/08/18 15:02 08/08/18 15:02 08/08/18 15:02 08/08/18 15:02 Intake & Output 08/07/18 08/08/18 08/09/18 06:59 06:59 06:59 Weight 59.1 kg General appearance: PRESENT: no acute distress, cooperative Eye exam: PRESENT: other - Status post enucleation of the right eye Respiratory exam: PRESENT: clear to auscultation devante, other - Right sided PermCath in place. Site looks clean. Cardiovascular exam: PRESENT: RRR GI/Abdominal exam: PRESENT: other - Soft, nondistended, nontender to palpation. Extremities exam: PRESENT: other - Left nduck-znr-kluz amputation site well- healed. Right foot with no mobility of the toes with discoloration of the entire foot especially the distal foot. Black eschar at the dorsum of the mid to distal foot. Black eschar at the plantar surface of the base of the fifth metatarsal. Right great toe black. Remaining toes have no capillary refill and have a dark discoloration. The right foot is cool to cold. The distal right foot is insensate with no light touch nor sharp sensation. Patient can move her right foot but she cannot wiggle her toes. There is no palpable pedal pulses. No Doppler signal at the dorsalis pedis but she does have a monophasic signal at the posterior tibial. No palpable popliteal pulse. The lower leg above the ankle is warm and pink. Neurological exam: PRESENT: alert, awake Results Laboratory Results: 08/08/18 15:58 08/08/18 15:58 08/08/18 08/08/18 15:58 15:58 WBC 10.7 H RBC 3.20 L Hgb 9.2 L Hct 28.7 L MCV 90 MCH 28.8 MCHC 32.2 RDW 17.3 H Plt Count 467 H Seg Neutrophils % 75.7 Lymphocytes % 15.3 Monocytes % 7.1 Eosinophils % 1.4 Basophils % 0.5 Absolute Neutrophils 8.1 Absolute Lymphocytes 1.6 Absolute Monocytes 0.8 Absolute Eosinophils 0.1 Absolute Basophils 0.1 Sodium 146.7 H Potassium 3.7 Chloride 103 Carbon Dioxide 28 Anion Gap 16 BUN 48 H Creatinine 4.83 H Est GFR ( Amer) 11 L Est GFR (Non-Af Amer) 9 L Glucose 148 H Calcium 8.7 Total Bilirubin 0.4 AST 15 ALT 13 Alkaline Phosphatase 169 H Total Protein 7.0 Albumin 3.4 L Impressions: Foot X-Ray 08/08/18 16:12 IMPRESSION: Calcaneal spurs. No evidence of osteomyelitis. Assessment & Plan - Diagnosis (1) Peripheral vascular disease of extremity Is this a current diagnosis for this admission?: Yes Plan: Advanced peripheral vascular disease with dry gangrenous changes of the right foot with black eschar covering the dorsum of the foot, black right fifth toe and black eschar at the base of its metatarsal. Cool to cold insensate distal right foot with no palpable pulses and only a monophasic posterior tibial signal. Unsure of the duration of this process. I do not think the right foot is salvageable. I believe that a below the knee amputation is indicated. Patient is a dialysis patient and will require dialysis tomorrow. Unfortunately there is no dialysis available at our hospital tomorrow. Without sufficient ancillary care at our hospital this weekend, patient will be transferred to an outside facility. I do recommend that she be seen by a vascular surgeon at the outside facility. Although vascular intervention is unlikely to salvage the right foot, I think the patient would be more acceptable to an amputation after a second opinion.
[2018-08-08] MEDS ORDERED: CEFEPIME 2 GM/D5W RTU 2 GM/50 ML RTUPB IV ONE (23:48)
[2018-08-08] MEDS ORDERED: VANCOMYCIN HCL INJ 1000 MG VIAL IV ONE (23:51)
[2018-08-09 10:20] VITALS: BP 152/53
--- NOTE | 2018-08-09 10:38 | ER Document Report ---
Doctor's Note Notes: 08/09/18 10:38 So patient prior to transfer. Patient's vital signs are stable. Pain is controlled.
== END 2018-08-09 10:54 | disposition short-term general hospital (02) ==
LOC: ER 14:55
DX: E11.621 Type 2 diabetes mellitus with foot ulcer (principal); I12.0 Hypertensive chronic kidney disease with stage 5 chronic kidney disease or end stage renal disease; E11.22 Type 2 diabetes mellitus with diabetic chronic kidney disease; N18.6 End stage renal disease; Z99.2 Dependence on renal dialysis; M79.671 Pain in right foot; W22.8XXA Striking against or struck by other objects, initial encounter
CPT/HCPCS: 99285; 96365; 36415; 87040; 85025; 80053; 83036; 73630; J3370; J0692

== ENCOUNTER 2018-12-01 10:19 | Day surgery (SDC) | payer MEDICARE, MEDICAID ==
[2018-11-28 09:41] LABS: HEMATOCRIT 32.8 % (36.0-47.0); HEMOGLOBIN 11.1 g/dL (12.0-15.5); MEAN CORPUSCULAR HEMOGLOBIN 31.4 pg (27.0-33.4); MEAN CORPUSCULAR VOLUME 93 fl (80-97); PLATELET COUNT 234 10^3/uL (150-450); RED BLOOD COUNT 3.55 10^6/uL (3.72-5.28); RED CELL DISTRIBUTION WIDTH 17.3 % (11.5-14.0); WHITE BLOOD COUNT 7.8 10^3/uL (4.0-10.5)
[2018-11-28 09:58] LABS: ANION GAP 15 (5-19); BLOOD UREA NITROGEN 37 mg/dL (7-20); CALCIUM 9.3 mg/dL (8.4-10.2); CARBON DIOXIDE 28 mmol/L (22-30); CHLORIDE 100 mmol/L (98-107); GLUCOSE 140 mg/dL (75-110); POTASSIUM 4.7 mmol/L (3.6-5.0); SODIUM 143.3 mmol/L (137-145)
--- NOTE | 2018-11-28 13:13 | EKG REPORT ---
SEVERITY:- ABNORMAL ECG - SINUS RHYTHM LEFT AXIS DEVIATION LVH WITH SECONDARY REPOLARIZATION ABNORMALITY : Confirmed by: Germán Colon MD 28-Nov-2018 13:12:49
[~2018-12-01 10:19] MED LIST: FENTANYL CITRATE INJ/PF 100 MCG/2 ML AMPUL ONE; HEPARIN SODIUM,PORCINE/NS/PF 0 UNIT/0 ML RTUINJ IV ONE; LACTATED RINGERS 1000 ML IV PRN; LIDOCAINE 0.5% INJ-PF (5 MG/ML) 50 ML SDV SUBCUT PRN; MIDAZOLAM 2 MG/2 ML INJ ONE; ONDANSETRON HCL INJ/PF 4 MG/2 ML SDV ONE; PROPOFOL INJ 200 MG/20 ML VIAL IV ONE; VANCOMYCIN HCL 500 MG in DEXTROSE 5%-WATER 100 ML IV PRN
[2018-12-01] MEDS: BUPIVACAINE HCL 0.25 % INJ/PF (2.5 MG/1 ML) 30 ML VIAL ONE ×2 (11:23→18:10)
[2018-12-01] MEDS: BACITRACIN INJ 50,000 UNIT VIAL ONE ×2 (11:24→18:17)
[2018-12-01] MEDS: LIDOCAINE 0.5% INJ-PF (5 MG/ML) 50 ML SDV ONE ×2 (11:24→18:16)
[2018-12-01] MEDS ORDERED: LIDOCAINE 1% INJ-PF (10 MG/ML) 30 ML SDV ONE (11:40)
[2018-12-01] MEDS ORDERED: HEPARIN SOD (PORCINE) 1,000 UNIT/ML 10 ML VIAL ONE (11:40)
[2018-12-01] MEDS ORDERED: DIPHENHYDRAMINE HCL 50 MG/ML VIAL IV PRN (17:29)
[2018-12-01] MEDS ORDERED: MORPHINE SULFATE 10 MG/ML INJ IV PRN (17:29)
[2018-12-01] MEDS ORDERED: FENTANYL CITRATE INJ/PF 100 MCG/2 ML AMPUL IV PRN ×3 (17:29)
[2018-12-01] MEDS ORDERED: MEPERIDINE HCL/PF INJ 25 MG/1 ML DISP.SYRIN IV PRN (17:29)
[2018-12-01] MEDS ORDERED: PROMETHAZINE HCL INJ 25 MG/1 ML VIAL IV PRN ×2 (17:29)
--- NOTE | 2018-12-01 19:14 | Discharge Summary ---
Discharge Summary (SDC) - Discharge Final Diagnosis: #1 malfunctioning AV fistula, left arm. 2. End-stage renal disease on hemodialysis. 3. Diabetes mellitus type 2. 4. Peripheral arterial disease. 5. Hypertension. Date of Surgery: 12/01/18 Discharge Date: 12/01/18 Condition: Poor Treatment or Instructions: Discharge home tomorrow morning]. Diet , [renal],as tolerated, when fully awake advance as tolerated. Activities within moderation encouraged. Follow up in my office by appointment on of this week for drain removal. Call for appointment. Leave wounds [covered], [keep clean and dry, until office visit. Hold of on school/work [until evaluation in office]. Meds per med rec. Percocet. Train patient in emptying the drain as needed. May shower [in 48 hrs], [try to keep operated area as dry as possible]. Prescriptions: Oxycodone HCl/Acetaminophen [Percocet 5-325 mg Tablet] 1 tab PO ASDIR PRN #15 tab PRN Reason: Referrals: JABARI ALVARADO FNP-C [Primary Care Provider] - Discharge Diet: Other (Comments) - Renal, diabetic. Respiratory Treatments at Home: Deep Breathing/Coughing Discharge Activity: Activity As Tolerated Report the Following to Your Physician Immediately: Shortness of Breath
--- NOTE | 2018-12-01 19:18 | Operative Report ---
Operative Report DATE OF SURGERY: 12/01/18 PREOPERATIVE DIAGNOSIS: #1 malfunctioning AV fistula, left arm. 2. End-stage renal disease on hemodialysis. 3. Diabetes mellitus type 2. 4. Peripheral arterial disease. 5. Hypertension. POSTOPERATIVE DIAGNOSIS: #1 malfunctioning AV fistula, left arm. 2. End-stage renal disease on hemodialysis. 3. Diabetes mellitus type 2. 4. Peripheral arterial disease. 5. Hypertension. OPERATION: Second stage transposition of left arm basilic vein fistula. 2. Decreased level of difficulty due to scarring and adhesions. SURGEON: CLINT SANDERS REVENUE FIELD AUDITOR: None. ANESTHESIA: LMAC TISSUE REMOVED OR ALTERED: Not applicable. COMPLICATIONS: None. ESTIMATED BLOOD LOSS: 20 mL. INTRAOPERATIVE FINDINGS: Of a very robust and well-developed basilic vein fistula easily 7 to 8 mm in diameter red astonishing amount of scarring around the veins, certainly due to venipuncture. This made the procedure more challenging and easily half an hour to 45 minutes more than normal. PROCEDURE: Operative Report PROCEDURE: After reviewing the procedure with the patient she was taken to the operating room. The patient was sedated and the [left upper extremity] prepared with chlorhexidine and draped out with sterile linen. After the "" universal timeout", in which it was verified that the patient [received IV antibiotics] the procedure commenced. The sterilely sheathed ultrasound probe was used to evaluate the size and topographic location of the existing basilic vein fistula. This was transcribed topographical using a marking pen. Local anesthesia was infiltrated and a longitudinal incision started just above the elbow and dissection proceeded down to the fistula. Sequential infiltration of local anesthesia, incision and dissection of the vein proceeded up to the axillary fold. The basilic vein was now dissected away from its branches which were either clipped and/or ligated and divided. In this way the basilic vein was freed up for its entire visible length. Its length was now measured with a dry umbilical tape which was used to transpose a tunnel onto the skin anteriorly and laterally. With this marked in ink, local anesthesia was infiltrated in the skin and subcutaneous tissue of the tunnel. A Ledger tunneler was now used to dissect a tunnel in the immediate subcutaneous plane in the area of fistula transposition. Several 3-0 PDS taylor tures were now placed in the subcutaneous tissues and placed on clamps. These were used for traction laterally. The subcutaneous tissues were now divided down to the tunneler. The tunneler was now removed. The vein was now placed within the tunnel which was reconstituted with interrupted sutures of 3-0 PDS. Great care was taken to avoid compressing the fistula. A 15 Romansh Anish drain was now inserted through an inferiorly placed incision after obtaining local anesthesia. The drain was tailored to the lower one third of the wound. It was kept away from the vein, the wound was now closed using interrupted 3-0 PDS in the subcutaneous tissues. The skin was closed with a continuous subcutaneous suture of 4-0 Monocryl. Steri-Strips were applied over benzoin and then Telfa and then a Kerlix wrap. The procedure was concluded. Copies dictated operative report to Dr. Clint Reynolds MD thank you. DICTATING PHYSICIAN: CLINT REYNOLDS M.D.
[2018-12-01] MEDS ORDERED: OXYCODONE-ACETAMINOPHEN 5-325 MG TABLET ONE (19:54)
[2018-12-01] MEDS ORDERED: OXYCODONE-ACETAMINOPHEN 5-325 MG TABLET PO PRN (20:08)
[2018-12-02 08:30] VITALS: BP 151/56
== END 2018-12-02 09:18 | disposition home health service (06) ==
LOC: OROUT 10:19 → 5 20:18 → OROUT 12-02 09:18
PROVIDERS: ATTEND Surgery
DX: T82.858A Stenosis of other vascular prosthetic devices, implants and grafts, initial encounter (principal); Y83.2 Surgical operation with anastomosis, bypass or graft as the cause of abnormal reaction of the patient, or of later complication, without mention of misadventure at the time of the procedure; I12.0 Hypertensive chronic kidney disease with stage 5 chronic kidney disease or end stage renal disease; E11.22 Type 2 diabetes mellitus with diabetic chronic kidney disease; N18.6 End stage renal disease; Z99.2 Dependence on renal dialysis; I25.10 Atherosclerotic heart disease of native coronary artery without angina pectoris; I49.9 Cardiac arrhythmia, unspecified; I25.2 Old myocardial infarction; E78.00 Pure hypercholesterolemia, unspecified; F17.210 Nicotine dependence, cigarettes, uncomplicated; Z79.4 Long term (current) use of insulin; Z79.84 Long term (current) use of oral hypoglycemic drugs; Z79.899 Other long term (current) drug therapy; Z86.14 Personal history of Methicillin resistant Staphylococcus aureus infection; Z89.612 Acquired absence of left leg above knee; Z89.611 Acquired absence of right leg above knee
CPT/HCPCS: 93010; 93005; 36415; 82962; 85027; 80048; 36832; J2250; J3490 ×3; J3010; J1644; A9270 ×2; J2405; J3370; J2704; 1844

== ENCOUNTER → 2019-04-10 | Outpatient (CLI) | payer MEDICARE, MEDICAID ==
--- NOTE | 2019-04-10 13:00 | RADIOLOGY REPORT (SQ) ---
EXAM DESCRIPTION: CHEST PA/LATERAL COMPLETED DATE/TIME: 04/10/2019 12:52 pm REASON FOR STUDY: OTH SYMPTOMS AND SIGNS INVOLVING THE CIRC AND RESP SYSTEMS COMPARISON: 03/12/2011 EXAM PARAMETERS: NUMBER OF VIEWS: two views TECHNIQUE: Digital Frontal and Lateral radiographic views of the chest acquired. RADIATION DOSE: NA LIMITATIONS: none FINDINGS: LUNGS AND PLEURA: There is a right pleural effusion along with right lower lobe infiltrate consistent with pneumonia. The left lung field is clear. MEDIASTINUM AND HILAR STRUCTURES: No masses or contour abnormalities. HEART AND VASCULAR STRUCTURES: Heart size is stable. There is mild central vascular prominence new f rom prior study. BONES: No acute findings. HARDWARE: None in the chest. OTHER: No other significant finding. IMPRESSION: Right pleural effusion with right lower lobe infiltrate most likely pneumonia. There is a component of vascular congestion. TECHNICAL DOCUMENTATION: JOB ID: [id number] [employer]- All Rights Reserved Reading location - IP/workstation name: [email or web address]
== END ==
LOC: OD 12:37
PROVIDERS: ATTEND Physician Assistant Medical
DX: J90 Pleural effusion, not elsewhere classified (principal); R09.89 Other specified symptoms and signs involving the circulatory and respiratory systems
CPT/HCPCS: 71046

== ENCOUNTER 2019-06-10 13:26 | Emergency (ER) | payer MEDICARE, MEDICAID ==
[2019-06-10] MEDS ORDERED: ASPIRIN 81 MG TABLET, CHEWABLE PO ONE (13:28)
[2019-06-10 13:53] LABS: ABSOLUTE EOSINOPHILS # (AUTO) 0.1 10^3/uL (0.0-0.6); ABSOLUTE LYMPHOCYTES (AUTO) 1.1 10^3/uL (0.5-4.7); ABSOLUTE MONOCYTES (AUTO) 0.7 10^3/uL (0.1-1.4); ABSOLUTE NEUT (AUTO) 10.4 10^3/uL (1.7-8.2); BASOPHILS % (AUTO) 0.3 % (0-2); HEMOGLOBIN 14.4 g/dL (12.0-15.5); MEAN CORPUSCULAR HEMOGLOBIN 31.1 pg (27.0-33.4); MEAN CORPUSCULAR HGB CONC 33.5 g/dL (32.0-36.0); MEAN CORPUSCULAR VOLUME 93 fl (80-97); MONOCYTES % (AUTO) 5.6 % (3-13); PLATELET COUNT 282 10^3/uL (150-450); RED BLOOD COUNT 4.62 10^6/uL (3.72-5.28); SEGMENTED NEUTROPHILS % (AUTO) 84.1 % (42-78); TOTAL CELLS COUNTED % (AUTO) 100 %; WHITE BLOOD COUNT 12.4 10^3/uL (4.0-10.5)
--- NOTE | 2019-06-10 14:01 | RADIOLOGY REPORT (SQ) ---
EXAM DESCRIPTION: CHEST SINGLE VIEW COMPLETED DATE/TIME: 06/10/2019 1:50 pm REASON FOR STUDY: see jumnaa ?hall1 cp COMPARISON: 04/10/2019 EXAM PARAMETERS: NUMBER OF VIEWS: One view. TECHNIQUE: Single frontal radiographic view of the chest acquired. RADIATION DOSE: NA LIMITATIONS: None. FINDINGS: LUNGS AND PLEURA: Persistent but improved patchy right basilar opacities and mild right ef fusion. Minimal linear left basilar atelectasis or scarring. No pneumothorax. MEDIASTINUM AND HILAR STRUCTURES: No masses. Contour normal. HEART AND VASCULAR STRUCTURES: Enlarged cardiac silhouette, stable. Coronary stent noted. BONES: No acute findings. HARDWARE: None in the chest. OTHER: No other significant finding. IMPRESSION: Improved but persistent mild right effusion and patchy basilar consolidation, possibly a telectasis or infection. TECHNICAL DOCUMENTATION: JOB ID: [id number] [employer]- All Rights Reserved Reading location - IP/workstation name: [email or web address]
[2019-06-10 14:12] LABS: ALBUMIN 4.4 g/dL (3.5-5.0); ALKALINE PHOSPHATASE 118 U/L (38-126); ANION GAP 16 (5-19); ASPARTATE AMINO TRANSFERASE 27 U/L (14-36); BILIRUBIN,DIRECT 0.4 mg/dL (0.0-0.4); BILIRUBIN,TOTAL 0.5 mg/dL (0.2-1.3); BLOOD UREA NITROGEN 43 mg/dL (7-20); CALCIUM 8.7 mg/dL (8.4-10.2); CARBON DIOXIDE 31 mmol/L (22-30); CHLORIDE 96 mmol/L (98-107); CREATINE KINASE 162 U/L (30-135); GLUCOSE 94 mg/dL (75-110); POTASSIUM 3.6 mmol/L (3.6-5.0); TOTAL PROTEIN 7.8 g/dL (6.3-8.2)
[2019-06-10 14:23] LABS: CREATINE KINASE MB 1.91 ng/mL (<4.55); TROPONIN I 0.032 ng/mL
--- NOTE | 2019-06-10 15:24 | ER Document Report ---
ED General - General Chief Complaint: Chest Pain Stated Complaint: CHEST PAIN Time Seen by Provider: 06/10/19 15:08 Primary Care Provider: JABARI ALVARADO FNP-C [Primary Care Provider] - Follow up as needed (Reevaluation in 2 days) TRAVEL OUTSIDE OF THE [place] IN LAST 30 DAYS: No - HPI Notes: Patient presents with chief complaint of chest pain midsternal worse with breathing that goes away completely with pausing of breath. He has extensive history of uncontrolled diabetes, heart attacks, stent placement as early as last year on Plavix. She is been medically compliant. Her pain is nonradiating denies any nausea vomiting diarrhea recent fevers or illnesses. - Related Data Allergies/Adverse Reactions: No Known Allergies Allergy (Verified 11/27/18 16:05) Past Medical History - Social History Smoking Status: Current Every Day Smoker Family History: CAD - Past Medical History Cardiac Medical History: Reports: Hx Coronary Artery Disease, Hx Heart Attack - 2011- STENT x 2, 05/2018 STENT x1 , Hx Hypertension - ON MEDS Pulmonary Medical History: Reports: Hx Pneumonia - CHILD Denies: Hx Asthma, Hx Bronchitis, Hx COPD Neurological Medical History: Denies: Hx Cerebrovascular Accident, Hx Seizures Endocrine Medical History: Reports: Hx Diabetes Mellitus Type 2 - diet controlled Renal/ Medical History: Reports: Hx End Stage Renal Disease. Denies: Hx Peritoneal Dialysis GI Medical History: Denies: Hx Hepatitis, Hx Hiatal Hernia, Hx Ulcer Musculoskeletal Medical History: Reports Hx Arthritis - L SHOULDER Psychiatric Medical History: Reports: Hx Depression Infectious Medical History: Denies: Hx Hepatitis Past Surgical History: Reports: Hx Orthopedic Surgery - left leg amputated, Other - Right eye enucleation. Denies: Hx Mastectomy, Hx Open Heart Surgery, Hx Pacemaker - Immunizations Hx Diphtheria, Pertussis, Tetanus Vaccination: No Review of Systems - Review of Systems Constitutional: No symptoms reported EENT: No symptoms reported Cardiovascular: See HPI Respiratory: No symptoms reported Gastrointestinal: No symptoms reported Genitourinary: No symptoms reported Female Genitourinary: No symptoms reported Musculoskeletal: No symptoms reported Skin: No symptoms reported Hematologic/Lymphatic: No symptoms reported Neurological/Psychological: No symptoms reported Physical Exam - Vital signs Vitals: Pulse Ox 100 06/10/19 13:27 - General General appearance: Appears well, Alert - HEENT Head: Normocephalic, Atraumatic Eyes: Other - 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 - Respiratory Respiratory status: No respiratory distress Chest status: Nontender Breath sounds: Normal Chest palpation: Normal - Cardiovascular Rhythm: Regular Heart sounds: Normal auscultation Murmur: No - Abdominal Inspection: Normal Distension: No distension Bowel sounds: Normal Tenderness: Nontender - Back Back: Normal, Nontender - Extremities General upper extremity: Normal inspection, Normal ROM General lower extremity: Other - Bilateral [id number] amputations - Neurological Neuro grossly intact: Yes Cognition: Normal Orientation: AAOx4 Course - Re-evaluation Re-evalutation: 06/10/19 19:09 Patient's pain goes completely away when holding her breath and is apparently she takes a deep breath. This is not consistent with ACS. Her initial work-up shows troponin within normal limits with no concerning findings on her EKG. Her VQ scan is negative. She has no changes on her EKG from 11/28/2018. Patient is a dialysis patient. We will provide albuterol with instructions to use 2 puffs every 4 hours and she is to seek medical reevaluation next 2 days if symptoms are not improving. 06/10/19 19:12 Patient has not had any recent productive cough, no leukocytosis or fever. X- ray showed possible atelectasis for infection. Afebrile at 98.6 per EMS report. Discharge her temperature was shown to be 100.6. You this new finding and recent cough with chest x-ray showing atelectasis for infection will place patient on Levaquin first dose provided here. return precautions provided. 06/10/19 19:33 06/10/19 19:42 - Vital Signs Vital signs: Temp Pulse Resp BP Pulse Ox 100.6 F H 22 H 126/73 H 100 06/10/19 19:32 06/10/19 19:03 06/10/19 19:03 06/10/19 19:03 - Laboratory Result Diagrams: 06/10/19 13:09 06/10/19 13:09 Laboratory results interpreted by me: 06/10/19 06/10/19 13:09 13:09 WBC 12.4 H RDW 16.0 H Lymph % (Auto) 9.0 L Absolute Neuts (auto) 10.4 H Seg Neutrophils % 84.1 H Chloride 96 L Carbon Dioxide 31 H BUN 43 H Creatinine 4.28 H Est GFR ( Amer) 13 L Est GFR (MDRD) Non-Af 11 L Creatine Kinase 162 H - Diagnostic Test Radiology reviewed: Reports reviewed - EKG Interpretation by Me EKG shows normal: Sinus rhythm Rate: Normal Rhythm: NSR - No significant changes from 11/28/2018 Discharge - Discharge Clinical Impression: Chest pain while breathing Pneumonia Qualifiers: Pneumonia type: due to unspecified organism Laterality: unspecified laterality Lung location: unspecified part of lung Qualified Code(s): J18.9 - Pneumonia, unspecified organism Condition: Good Disposition: HOME, SELF-CARE Instructions: Pleurisy ([facility]) Additional Instructions: Please use albuterol puffer provided 2 puffs every 4 hours as needed for chest discomfort. Return to emergency department if any worsening conditions or any other concerns. Prescriptions: Levofloxacin [Levaquin 500 mg Tablet] 500 mg PO ASDIR PRN #5 tablet PRN Reason: Referrals: JABARI ALVARADO FNP-C [Primary Care Provider] - Follow up as needed (Reevaluation in 2 days)
--- NOTE | 2019-06-10 18:08 | RADIOLOGY REPORT (SQ) ---
EXAM DESCRIPTION: NM LUNG VENT/PERF SCAN COMPLETED DATE/TIME: 06/10/2019 5:57 pm REASON FOR STUDY: chest pain with breathing COMPARISON: None. RADIONUCLIDE AND DOSE: 5.34 millicuries TC-99m MAA Intravenous 30.6 millicuries TC-99m DTPA Inhaled aerosol TECHNIQUE: Eight views of the lungs acquired post ventilation of DTPA aerosol. Eight matching views of the lungs acquired following injection of MAA. LIMITATIONS: None. FINDINGS: VENTILATION: Symmetric and homogeneous distribution of DTPA aerosol during ventilatory pha se. No significant areas of photopenia. PERFUSION: Perfusion images with normal homogenous activity and no wedge-shaped or segmental defects. No ventilation-perfusion mismatches. OTHER: No other significant finding. IMPRESSION: NORMAL VENTILATION-PERFUSION LUNG SCAN. NEGATIVE FOR PULMONARY EMBOLI. TECHNICAL DOCUMENTATION: JOB ID: [id number] [employer]- All Rights Reserved Reading location - IP/workstation name: [email or web address]
[2019-06-10 19:07] VITALS: BP 126/73
[2019-06-10] MEDS ORDERED: ALBUTEROL SULFATE HFA (90 MCG/PUFF) 8 GM MDI (1 MDI/ER DISP) IH ONE (19:15)
[2019-06-10] MEDS ORDERED: LEVOFLOXACIN 750 MG TABLET PO ONE (19:36)
--- NOTE | 2019-06-11 09:10 | EKG REPORT ---
SEVERITY:- ABNORMAL ECG - SINUS RHYTHM LEFT AXIS DEVIATION LVH WITH SECONDARY REPOLARIZATION ABNORMALITY BORDERLINE PROLONGED QT INTERVAL : Confirmed by: Sakshi Pugh 11-Jun-2019 09:09:52
== END 2019-06-10 21:30 | disposition home or self-care (01) ==
LOC: ER 13:26
DX: J18.9 Pneumonia, unspecified organism (principal); R07.1 Chest pain on breathing; E11.9 Type 2 diabetes mellitus without complications; I25.2 Old myocardial infarction; F17.200 Nicotine dependence, unspecified, uncomplicated; I25.10 Atherosclerotic heart disease of native coronary artery without angina pectoris; I10 Essential (primary) hypertension; Z79.899 Other long term (current) drug therapy
CPT/HCPCS: 93005; 99285; 36415; 82553; 82550; 85025; 80053; 84484; 71045; 78582; 93010; A9540; A9567; A9270; J3490; Q9969

== ENCOUNTER 2019-11-16 08:28 | Day surgery (SDC) | payer MEDICARE, MEDICAID ==
[~2019-11-16 08:28] MED LIST changes: -FENTANYL CITRATE INJ/PF 100 MCG/2 ML AMPUL ONE; -HEPARIN SODIUM,PORCINE/NS/PF 0 UNIT/0 ML RTUINJ IV ONE; -LACTATED RINGERS 1000 ML IV PRN; -LIDOCAINE 0.5% INJ-PF (5 MG/ML) 50 ML SDV SUBCUT PRN; -MIDAZOLAM 2 MG/2 ML INJ ONE; -ONDANSETRON HCL INJ/PF 4 MG/2 ML SDV ONE; -VANCOMYCIN HCL 500 MG in DEXTROSE 5%-WATER 100 ML IV PRN
[2019-11-16 10:36] VITALS: BP 153/55
--- NOTE | 2019-11-16 12:01 | Operative Report ---
Operative Report DATE OF SURGERY: 11/16/19 Operative Report: The risk, benefits and alternatives of the procedure including the risk of bleeding, perforation requiring surgery have been explained to the patient in detail and informed consent has been obtained. Patient is taken back to the endoscopy suite. Timeout was called. Propofol medication is administered. Rectal examination is done which did not reveal any masses, tears or fissures. An Olympus videoscope was introduced into the patient's rectum. Scope was advanced all the way to the cecum. Cecum was identified by the usual anatomical landmarks Prep was good. All of the segments are visualized. Retroflexion maneuvers performed. PREOPERATIVE DIAGNOSIS: Colorectal cancer screening POSTOPERATIVE DIAGNOSIS: Hepatic rectal polyp was removed via snare polypectomy and retrieved. Descending colon polyp was removed via snare polypectomy and retrieved OPERATION: Colonoscopy with snare polypectomy SURGEON: JUSTIN BRODERICK ANESTHESIA: LMAC TISSUE REMOVED OR ALTERED: As noted above. COMPLICATIONS: None. ESTIMATED BLOOD LOSS: None. INTRAOPERATIVE FINDINGS: As noted above. PROCEDURE: Patient tolerated the procedure well. No immediate postprocedure complications are noted. Patient is discharged in good condition. Discharge date 11/16/2019. Discharge diet: Regular. Discharge activity: Regular. 2 to 3-week follow-up to discuss findings. 3 to 5-year surveillance colonoscopy.
--- NOTE | 2019-11-16 13:08 | EKG REPORT ---
SEVERITY:- ABNORMAL ECG - SINUS RHYTHM LVH WITH SECONDARY REPOLARIZATION ABNORMALITY BORDERLINE PROLONGED QT INTERVAL NONSPECIFIC ST-T CHANGES- INFERIOR LEADS : Confirmed by: Germán Colon MD 16-Nov-2019 13:07:33
== END 2019-11-16 10:38 | disposition home or self-care (01) ==
LOC: END 08:28
PROVIDERS: ATTEND Internal Medicine Gastroenterology
DX: Z12.11 Encounter for screening for malignant neoplasm of colon (principal); D12.4 Benign neoplasm of descending colon; D12.6 Benign neoplasm of colon, unspecified; I25.10 Atherosclerotic heart disease of native coronary artery without angina pectoris; F17.210 Nicotine dependence, cigarettes, uncomplicated; E78.5 Hyperlipidemia, unspecified; I49.9 Cardiac arrhythmia, unspecified; E11.22 Type 2 diabetes mellitus with diabetic chronic kidney disease; I13.10 Hypertensive heart and chronic kidney disease without heart failure, with stage 1 through stage 4 chronic kidney disease, or unspecified chronic kidney disease; N18.4 Chronic kidney disease, stage 4 (severe); E11.319 Type 2 diabetes mellitus with unspecified diabetic retinopathy without macular edema; I25.2 Old myocardial infarction
CPT/HCPCS: 45385; 82962; 88305 ×2; 93005; 93010; J2704

== ENCOUNTER 2020-07-28 09:16 | Day surgery (SDC) | payer MEDICARE, MEDICAID ==
[~2020-07-28 09:16] MED LIST changes: +CHONDR SU A NA/HYALUR INTRAOC KIT (SURGICARE) ONE; +EPINEPHRINE INJ/PF 1 MG/1 ML AMPULE ONE; +KETOROLAC TROMETHAMINE 0.45% 4 DROP/0.4 ML DROPERETTE OS PRN; +LIDOCAINE 1%/PHENYLEPHRINE 1.5% 1 ML VIAL ONE; +LIDOCAINE 3.5% OPH GEL/PF 1 ML/TUBE OS PRN; -PROPOFOL INJ 200 MG/20 ML VIAL IV ONE; +TRYPAN BLUE 0.06 % OPH SOLN 0.5 ML DISP.SYRIN ONE
[2020-07-28] MEDS: CYCLOPENTOLATE 0.2%/PHENYLEPHRINE 1% OPH SOLN 2 ML OS PRN ×3 (10:12→10:40)
[2020-07-28] MEDS: TETRACAINE HCL 0.5% OPH SOLN 4 ML OS PRN ×3 (10:12→10:55)
[2020-07-28] MEDS: BESIFLOXACIN HCL 0.6% OPH SUSP 5 ML BOTTLE OS PRN ×4 (10:12→11:17)
[2020-07-28] MEDS: TROPICAMIDE 1% OPH SOLN 15 ML OS PRN ×3 (10:12→10:40)
[2020-07-28] MEDS ORDERED: FENTANYL CITRATE INJ/PF 100 MCG/2 ML AMPUL ONE (10:35)
[2020-07-28] MEDS ORDERED: MIDAZOLAM 2 MG/2 ML INJ ONE (10:35)
[2020-07-28] MEDS: DORZOLAMIDE HCL 2%/TIMOLOL MALEAT 0.5% OPH SOLN 10 ML OS PRN ×2 (11:17)
[2020-07-28] MEDS: PREDNISOLONE ACETATE 1% OPH SUSP 5 ML OS PRN ×2 (11:17)
--- NOTE | 2020-07-28 11:52 | Operative Report ---
Operative Report-[facility] Operative Report: DATE OF SURGERY: [07/28/2020] PREOPERATIVE DIAGNOSIS: Other cataracts, left eye POSTOPERATIVE DIAGNOSIS: Other cataract, left eye OPERATION: Complex cataract extraction with insertion of an IOL of the left eye use of trypan blue dye. Intraocular Lens Model: [21.5 SN 60 WF] she underwent surgery for difficulty seeing the television SURGEON: Abdiel Sweet MD ANESTHESIA: Topical PROCEDURE: After obtaining appropriate consent, the patient's left eye was prepped and draped in a sterile fashion as well as the surgeon in the sterile manner and cataract surgery was started. First a paracentesis blade was used to make a side-port incision. Viscoelastic was used to inflate the anterior chamber. Next a 2.4 mm incision was made with a 2.4 mm blade, clear corneal temporarily. Trypan blue dye was used to stain the anterior capsule due to poor red reflex .A continuous capsulorrhexis was made using a cystotome and Utrata forceps. Following this hydrodissection was carried out to make the lens fully loose and mobile and it was rotated 90 degrees. Following this, a divide and conquer technique was used to phacoemulsify the lens. The remaining cortex was removed with an irrigation/aspiration. Provisc was instilled into the capsular bag to inflate the bag.The intraocular lens was placed. The remaining viscoelastic material was removed with irrigation/aspiration. Following this, the incision was found to be watertight. Besivance and Cosopt was instilled into the eye and a protective shield was placed over the eye. The patient was returned to the postoperative recovery in a stable condition.
--- OUTSIDE RECORDS SUMMARY | 2020-07-29 15:13 | XMS REPORT ---
:1960 Author Organization [facility] Address [facility] [address] [place] [address] Care Team Providers Name Role Phone DAYAN ALVARADO Primary Care Physician Unavailable Angel Attending Clinician Unavailable Ike Attending Clinician Unavailable Feroz Zhu Attending Clinician Unavailable Feroz Zhu Attending Clinician Unavailable Ike Attending Clinician Unavailable PONCHO FORD Attending Clinician Unavailable Tessa Attending Clinician Unavailable Feroz Zhu Admitting Clinician Unavailable JORDAN GILMORE Admitting Clinician Unavailable Allergies, Adverse Reactions, Alerts This patient has no known allergies or adverse reactions. Medications Ordered Filled Start Stop Current Ordering Indication Dosage Frequency Signature Comments Components Medication Medication Date Date Medication? Clinician (SIG) Name Name carvedilol Yes 6.25mg Q12H 6.25 mg, (COREG) 06-07 Oral, tablet 6.25 00:00: Every 12 mg 00 hours, First dose on 06/07/18 at 0000
Ho ld for SBP < 90 or for HR < 50.
acetaminoph Yes 650mg Q6H 650 mg, en 06-06 Oral, (TYLENOL) 08:25: Every 6 tablet 650 28 hours PRN, mg mild pain (1-3), Fever, Headache, all pain, Starting 06/06/18 at 0825
Ma ximum acetaminop hen intake from all sources should not exceed 75 mg/kg OR 4 grams in any 24 hour period, whichever is less.
glucagon Yes 1mg Inject 1 (GLUCAGEN) 9-21 mL (1 mg 1 mg/mL 00:00: total) injection 00 into the muscle as directed for Low blood sugar (Per Hypoglycem ia Protocol). enoxaparin 2018- No 1{each} 1 each, (LOVENOX) 06-04 XX, See Hold x 48 18:30: 18:29 Admin Hours 08 :08 Instructio ns, Starting Sat06/04/18 at 1830, For 48 hours
N o Enoxaparin for 48 hours
clopidogrel 0 No Oral, Once (PLAVIX) 06-04 PRN, tablet 17:50: Starting 04 Sat06/04/18 at 1750, For 1 dose fentaNYL 0 No Intravenou (PF) 9- s, Once (SUBLIMAZE) 17:33: PRN, injection 41 Starting Sat06/04/18 at 1733, For 1 dose midazolam 0 No Intravenou (VERSED) 5 9- s, Once mg/mL 17:33: PRN, injection 14 Starting Sat06/04/18 at 1732, For 1 dose nitroGLYcer 0 No Once PRN, in 100 06-04 Starting mcg/mL 17:12: Wed injection 34 06/04/18 at 1712, For 1 dose nitroGLYcer 0 No Once PRN, in 100 06-04 Starting mcg/mL 17:07: Wed injection 19 06/04/18 at 1707, For 1 dose heparin 0 No Once PRN, injection 06-04 Starting 17:02: Wed 31 06/04/18 at 1656, For 1 dose fentaNYL 0 No Intravenou (PF) 9- s, Once (SUBLIMAZE) 16:56: PRN, injection 40 Starting Sat06/04/18 at 1656, For 1 dose midazolam 0 No Once PRN, (VERSED) 1 06-04 Starting mg/mL 16:56: Wed injection 27 06/04/18 at 1656, For 1 dose iopamidol 0 No Once PRN, (ISOVUE-370 06-04 Starting ) 76% 16:30: Wed injection 54 06/04/18 at 1630, For 1 dose verapamil 0 No Once PRN, (ISOPTIN) 06-04 Starting injection 16:29: Wed 59 06/04/18 at 1629, For 1 dose heparin 0 No Once PRN, injection 06-04 Starting 16:18: Wed 07 06/04/18 at 1618, For 1 dose fentaNYL 0 No Intravenou (PF) 9-19 s, Once (SUBLIMAZE) 16:15: PRN, injection 29 Starting Sat06/04/18 at 1615, For 1 dose midazolam No Intravenou (VERSED) 5 9-19 s, Once mg/mL 16:15: PRN, injection 25 Starting Sat06/04/18 at 1615, For 1 dose midazolam No Intravenou (VERSED) 5 9-19 s, Once mg/mL 16:15: PRN, injection 22 Starting Sat06/04/18 at 1611, For 1 dose fentaNYL No Intravenou (PF) 9- s, Once (SUBLIMAZE) 16:15: PRN, injection 12 Starting Sat06/04/18 at 1611, For 1 dose verapamil No Once PRN, (ISOPTIN) 06-04 Starting injection 16:13: Wed 10 06/04/18 at 1613, For 1 dose lidocaine No Once PRN, (PF) 06-04 Starting (XYLOCAINE) 16:03: Wed 1 % 00 06/04/18 at injection 1602, For 1 dose diphenhydrA No Once PRN, MINE 06-04 Starting (BENADRYL) 15:49: Wed injection 01 06/04/18 at 1548, For 1 dose heparin No ESRD (end Intracathe (porcine) 06-[address], See 5,000 12:45: 12:44 disease) on Admin unit/mL 21 :21 dialysis Instructio injection ([facility]) ns, Starting Sat06/04/18 at 1245, For 30 days
In still an appropriat e amount to fill catheter lumen(s).< br> heparin No 60U/kg 3,700 bolus 06-03 Units injection 17:22: (rounded 3,700 Units 54 from 3,666 Units = 60 Units/kg 61.1 kg), Intravenou s, Once, 06/03/18 at 1715, For 1 dose
*I NITIAL*ARRON US. & nbsp;Maxim um of 4000 units.
heparin in 2018- No 15U/kg/ 15 dextrose 5% 9-18 09-19 h Units/kg/h infusion 17:15: 17:40 r 25,000 00 :57 61.1 kg units/250 (9.165 mL mL/hr, rounded to 9.2 mL/hr), Intravenou s, at 9.2 mL/hr, Continuous , Starting Sat06/03/18 at 1715, For 30 days
Heparin dose adjustment s per protocol see MAR hyperlink* * MODIFY order for EACH dose adjustment .
heparin 2018- No 3000U 3,000 bolus 06-03 Units, injection 17:11: 17:40 Intravenou 3,000 Units 30 :57 s, As Directed, Heparin Bolus per Protocol, Starting Sat06/03/18 at 1711, For 30 days
*P RN*BOLUS.& nbsp;&nbsp ;RN may re-bolus based on ACS/AMI adjustment protocol&l t;br> potassium No 20meq 20 mEq, chloride 06-03 Oral, (KLOR-CON) 12:52: Once, Sat oral powder 33 06/03/18 at 20 mEq 1300, For 1 dose
Di ssolve packet in one-half glass (120 ml) of &n bsp;water or juice and drink slowly
amLODIPine Yes 5mg QD 5 mg, (NORVASC) 06-03 Oral, tablet 5 mg 09:00: Daily, 00 First dose on Sat06/03/18 at 0900
Ho ld for SBP < 90 .
aspirin EC Yes 81mg QD 81 mg, tablet 81 06-02 Oral, mg 18:00: Daily, 00 First dose on Sat06/02/18 at 1800
Do not crush, chew, or split. Swallow whole.<b r> clopidogrel Yes 75mg QD 75 mg, (PLAVIX) 06-02 Oral, tablet 75 18:00: Daily, mg 00 First dose on Sat06/02/18 at 1800 heparin 2017- No 5000U [id number] 5,000 (porcine) 06-02 [id number] Units, (PF) vial 18:00: 17:12 3D Subcutaneo 5,000 Units 00 :24 us, Every 8 hours, First dose on Sat06/02/18 at 1800, For 30 days diphenhydrA 2017- No 25mg 25 mg, MINE 06-02 Oral, (BENADRYL) 12:45: 11:59 Every 6 capsule 25 00 :00 hours, mg First dose on Sat06/02/18 at 1245, For 30 days carvedilol 2017- No 6.25mg Q12H 6.25 mg, (COREG) 06-02 Oral, tablet 6.25 12:00: 10:29 Every 12 mg 00 :55 hours, First dose on Sat06/02/18 at 1200
Ho ld for SBP < 90 or for HR < 50.
insulin 2017- No 0U [id number] 0-10 REGULAR 06-02 [id number] Units, (HumuLIN 08:00: 07:59 3D Subcutaneo R,NovoLIN 00 :00 us, 3 R) times injection Daily AC correction (before dose 0-10 meals) Units (INSULIN), First dose on Sat06/02/18 at 0800, For 7 days
If nutrition stops, give full correction dose.&nbsp ; &nb sp;(If BG < 70, treat per hypoglycem ia protocol.) &nbs p;# of units =(blood glucose - 120)/30
dextrose 5 2017- No at 30 % infusion 06-02 10- mL/hr, 07:00: 08:14 Intravenou 00 :00 s, Continuous , Starting Sat06/02/18 at 0700, For 30 days atorvastati Yes 80mg QD 80 mg, n (LIPITOR) 9-16 Oral, tablet 80 23:45: Nightly, mg 00 First dose on 06/01/18 at 2345 carvedilol Yes 6.25mg Q12H Take 6.25 (COREG) 9-16 mg by 6.25 MG 23:40: mouth tablet 50 every 12 (twelve) hours. clopidogrel Yes 75mg QD Take 75 mg (PLAVIX) 75 9-16 by mouth mg tablet 23:40: once 50 daily. FUROsemide 2018-0 Yes 60mg Q12H Take 60 mg (LASIX) 40 9-16 by mouth MG tablet 23:40: every 12 50 (twelve) hours. insulin 2017-0 Yes 10U QD Inject 10 DETEMIR 9-16 Units (LEVEMIR 23:40: subcutaneo FLEXTOUCH) 50 usly pen nightly. injector (concentrat ion 100 units/mL) lisinopril Yes 20mg QD Take 20 mg (PRINIVIL,Z 16 by mouth ESTRIL) 20 23:40: once MG tablet 50 daily. amLODIPine Yes 5mg QD Take 5 mg (NORVASC) 5 -16 by mouth MG tablet 23:40: once 49 daily. aspirin 81 Yes 81mg QD Take 81 mg MG EC 16 by mouth tablet 23:40: once 49 daily. atorvastati Yes 80mg QD Take 80 mg n (LIPITOR) 06-01 by mouth 80 MG 23:40: nightly. tablet 49 heparin 2017- No Intracathe (porcine) 06-01 ter, See 5,000 23:18: 17:12 Admin unit/mL 52 :24 Instructio injection ns, Starting 06/01/18 at 2318, For 30 days
In still an appropriat e amount to fill catheter lumen(s).< br> clopidogrel 2017- No 75mg QD 75 mg, (PLAVIX) 06-01 Oral, tablet 75 23:00: 12:36 Daily, mg 00 :10 First dose on 06/01/18 at 2300 aspirin 2017- No 325mg QD 325 mg, tablet 325 06-01 Oral, mg 23:00: 06:59 Daily, 00 :20 First dose on 06/01/18 at 2300 nitroGLYCER 2018- No 1ug/min 1-100 IN adult 06-01 mcg/min infusion 22:30: 06:28 (0.15-15 100 mg/250 00 :14 mL/hr), mL in D5W Intravenou s, at 0.15-15 mL/hr, Continuous , Starting 06/01/18 at 2230, For 30 days
In itial nitroGLYce rin starting rate of 5 mcg/min. Titrate infusion by 5-10 mcg/min every 5 minutes PRN to Chest Pain Free or to a maximum rate of 100 mcg/min.&n bsp;William id using nitrates if sildenafil (Revatio, Viagra) or vardenafil (Levitra) have been used within 24 hours or if tadalafil (Cialis, Adcirca) has been used within 48 hours.< br> HYDROmorpho 2017- No .25mg Q4H 0.25 mg, ne 06-01 Intravenou (DILAUDID) 22:26: 22:25 s, Every 4 0.5 mg/0.5 38 :38 hours PRN, mL inj Other, syringe chest 0.25 mg pain, Starting Lincoln 06/01/18 at 2226, For 5 days heparin in No 14U/kg/ 14 dextrose 5% 06-0117 h Units/kg/h infusion 21:45: 12:52 r 25,000 00 :30 61 kg units/250 (8.54 mL mL/hr, rounded to 8.5 mL/hr), Intravenou s, at 8.5 mL/hr, Continuous , Starting [place] 06/01/18 at 2145, For 30 days
Heparin dose adjustment s per protocol see MAR hyperlink* * MODIFY order for EACH dose adjustment .
dextrose Yes 15g 15 g, (GLUTOSE) 06-01 Oral, As 40 % gel 15 21:36: Directed, g 42 Low blood sugar, Per Hypoglycem ia Protocol, Starting Lincoln 06/01/18 at 2136
Gi ve for blood glucose < 70 (or < 80 with hypoglycem ia symptoms) if patient is eating. Refer to Hypoglycem ia Protocol for product options. Give by mouth: 15 g carbohydra te
glucagon 2017- No 1mg [Order 1 (GLUCAGEN) 06-01 Start] injection 1 21:36: 21:35 Name: mg 42 :42 glucagon (GLUCAGEN) injection 1 mg Signed Summary: 1 mg, Intramuscu lar, As Directed, Low blood sugar, Per Hypoglycem ia Protocol, Starting [place] 06/01/18 at 6, For 30 days
Gi ve if BG < 70 (or < 80 with hypoglycem ia symptoms) and NPO with NO IV access.&nb sp;May give as Intramuscu lar or Subcutaneo us injection.
[Order 1 End] [Order 2 Start] Name: glucagon (GLUCAGEN) injection 1 mg Signed Summary: 1 mg, Subcutaneo us, As Directed, Low blood sugar, Per Hypoglycem ia Protocol, Starting [place] 06/01/18 at 6, For 30 days
Gi ve if BG < 70 (or < 80 with hypoglycem ia symptoms) and NPO with NO IV access.&nb sp;May give as Intramuscu lar or Subcutaneo us injection.
[Order 2 End] dextrose 2017- No 12.5g 12.5-25 g, 50% in 06-01 Intravenou water 21:36: 21:35 s, As solution 42 :42 Directed, 12.5-25 g Per Hypoglycem ia Protocol, Starting [place] 06/01/18 at 6, For 30 days
If BG < 70 (or < 80 with hypoglycem ia symptoms) and patient is NPO or limited PO, give 12.5 g for BG >= 50 or 25 g for BG < 50.
heparin 2017- No 3000U 3,000 bolus 06-01 Units, injection 21:31: 12:52 Intravenou 3,000 Units 05 :30 s, As Directed, Heparin Bolus per Protocol, Starting [place] 06/01/18 at 2130, For 30 days
*P RN*BOLUS.& nbsp;&nbsp ;RN may re-bolus based on ACS/AMI adjustment protocol&l t;br> Problems Condition Condition Condition Status Onset Resolution Last Treatin g Comments Name Details Category Date Date Treatment Clinician Date Hypertensio Hypertensio Problem Active 2018-06-05 n, n, 06-05 22:01:59 essential essential 00:00: 00 Hyperlipide Hyperlipide Problem Active 2018-06-05 chrissie, chrissie, 06-05 22:02:47 unspecified unspecified 00:00: , , 00 unspecified unspecified NSTEMI NSTEMI Problem Active 2018-06-05 (non-ST (non-ST 06-05 22:03:08 elevation elevation 00:00: myocardial myocardial 00 infarction) infarction) ([facility]) ([facility]) Anemia of Anemia of Problem Active 2018-06-05 chronic chronic 06-05 22:11:51 disease disease 00:00: 00 Respiratory Respiratory Problem Active 2018-06-02 failure failure 06-02 22:34:21 with with 00:00: hypoxia hypoxia 00 ([facility]) ([facility]), due to missed dialysis PAD PAD Problem Active 2018-06-02 (peripheral (peripheral 06-02 22:34:25 artery artery 00:00: disease) disease) 00 ([facility]) ([facility]) S/P AKA S/P AKA Problem Active 2018-06-02 (above knee (above knee 06-02 14:46:46 amputation) amputation) 00:00: unilateral, unilateral, 00 left left ([facility]) ([facility]) Limitation Limitation Problem Active 2018-06-02 due to due to 06-02 22:34:18 disability disability 00:00: 00 ESRD (end ESRD (end Problem Active 2018-06-02 stage renal stage renal 06-01 01:15:42 disease) on disease) on 00:00: dialysis dialysis 00 ([facility]) ([facility]) Elevated indetermina Problem Active 2018-06-02 troponin te troponin 06-01 14:42:53 level 00:00: 00 SOB SOB Problem Resolve 2018-06-01 2018-06-06 (shortness (shortness d 06-01 00:00:00 15:45:22 of breath) of breath) 00:00: 00 Procedures Procedure Date / Time Performed Performing Clinician Devic e OFFICE/OUTPATIENT VISIT EST 2020-06-01 08:15:00 OFFICE/OUTPATIENT VISIT EST 2020-01-13 11:00:00 OFFICE/OUTPATIENT VISIT EST 2019-11-27 10:15:00 OFFICE/OUTPATIENT VISIT EST 2019-10-14 10:30:00 OFFICE/OUTPATIENT VISIT EST 2019-04-15 10:15:00 OFFICE/OUTPATIENT VISIT EST 2018-09-05 11:15:00 POC GLUCOSE WHOLE BLOOD 2018-06-06 11:27:00 Logan, Shreevinaya Vattaparambil POC GLUCOSE WHOLE BLOOD 2018-06-06 07:29:00 Celio Ford Vattaparambil POC GLUCOSE WHOLE BLOOD 2018-06-06 06:27:00 Celio Ford Vattaparambil BASIC METABOLIC PANEL (BMP) 2018-06-06 04:40:00 Cecilia Glass COMPLETE BLOOD COUNT (CBC) 2018-06-06 04:40:00 Quan Cecilia POC GLUCOSE WHOLE BLOOD 2018-06-06 00:18:00 LoganCelio Vattaparambil POC GLUCOSE WHOLE BLOOD 2018-06-05 20:27:00 Bandla, Kvngthtannajali POC GLUCOSE WHOLE BLOOD 2018-06-05 17:13:00 Bandla, Doreen CREATINE KINASE, TOTAL AND MB 2018-06-05 15:43:00 Prema Francisca Sorio FRACTION POC GLUCOSE WHOLE BLOOD 2018-06-05 11:45:00 BandDoreen sanford POC GLUCOSE WHOLE BLOOD 2018-06-05 07:34:00 Doreen Vee BASIC METABOLIC PANEL (BMP) 2018-06-05 05:46:00 Mary Tipton COMPLETE BLOOD COUNT (CBC) 2018-06-05 05:46:00 Mary Tipton CREATINE KINASE, TOTAL AND MB 2018-06-05 05:46:00 Lloyd Francisca Sorio FRACTION POC GLUCOSE WHOLE BLOOD 2018-06-05 04:46:00 Doreen Vee ECG 12-LEAD 2018-06-05 03:47:18 Prema Francisca Sorio POC GLUCOSE WHOLE BLOOD 2018-06-05 03:35:00 Doreen Vee CREATINE KINASE, TOTAL AND MB 2018-06-05 00:07:00 Lloyd Francisca Sorio FRACTION POC GLUCOSE WHOLE BLOOD 2018-06-04 20:19:00 Doreen Vee ACTIVATED PARTIAL 2018-06-04 19:24:00 Doreen Vee THROMBOPLASTIN TIME (APTT) POC GLUCOSE WHOLE BLOOD 2018-06-04 18:59:00 Doreen Vee POC GLUCOSE WHOLE BLOOD 2018-06-04 18:35:00 Doreen Vee CATH RIGHT HEART AND CORONARY 2018-06-04 17:34:05 Francisca Lloyd ANGIOGRAPHY AND LEFT HEART ACTIVATING CLOTTING TIME 2018-06-04 16:57:00 BandKathrin sanfordli (ACT) POC OCCULT BLOOD, SCREEN 2018-06-04 13:27:00 Bandla, Geethanjali ACTIVATED PARTIAL 2018-06-04 12:51:00 Bandla, Geethanjali THROMBOPLASTIN TIME (APTT) POC GLUCOSE WHOLE BLOOD 2018-06-04 11:28:00 Bandla, Geethanjali POC OCCULT BLOOD, SCREEN 2018-06-04 09:19:00 Bandla, Geethanjali POC GLUCOSE WHOLE BLOOD 2018-06-04 08:05:00 Bandla, Kvngthanjali BASIC METABOLIC PANEL (BMP) 2018-06-04 06:39:00 Yoli Melton COMPLETE BLOOD COUNT (CBC) 2018-06-04 06:39:00 Chalise, Vitaliy Tiffanie ACTIVATED PARTIAL 2018-06-04 06:39:00 Solis Gilmore THROMBOPLASTIN TIME (APTT) TROPONIN I 2018-06-04 06:39:00 Yoli Melton ACTIVATED PARTIAL 2018-06-04 00:17:00 Chalise, Vitaliy Tiffanie THROMBOPLASTIN TIME (APTT) POC GLUCOSE WHOLE BLOOD 2018-06-03 20:13:00 Chalise, Vitaliy Tiffanie POC GLUCOSE WHOLE BLOOD 2018-06-03 18:11:00 Chalise, Vitaliy Tiffanie COMPLETE BLOOD COUNT (CBC) 2018-06-03 17:44:00 Yoli Melton PROTHROMBIN TIME (INR) 2018-06-03 17:44:00 Yoli Melton erson ACTIVATED PARTIAL 2018-06-03 17:44:00 Yoli Melton THROMBOPLASTIN TIME (APTT) POC GLUCOSE WHOLE BLOOD 2018-06-03 16:38:00 Chalise, Vitaliy Tiffanie POC GLUCOSE WHOLE BLOOD 2018-06-03 12:25:00 Chalise, Vitaliy Tiffanie TROPONIN I 2018-06-03 12:22:00 Tonya Dang POC GLUCOSE WHOLE BLOOD 2018-06-03 06:26:00 Chalise, Vitaliy Tiffanie PREPARE RBC (CROSSMATCH) - 2018-06-03 06:01:16 Savanna Ruiz NON-IRRADIATED BASIC METABOLIC PANEL (BMP) 2018-06-03 04:53:00 Tonya Dang CALCIUM, IONIZED 2018-06-03 04:53:00 Tonya Dang MAGNESIUM 2018-06-03 04:53:00 Tonya Dang COMPLETE BLOOD COUNT (CBC) 2018-06-03 04:53:00 Chalise, Vitaliy Tiffanie ACTIVATED PARTIAL 2018-06-03 04:53:00 Savanna Ruiz THROMBOPLASTIN TIME (APTT) TROPONIN I 2018-06-03 04:53:00 Tonya Dang POC GLUCOSE WHOLE BLOOD 2018-06-03 00:01:00 Chalise, Vitaliy Tiffanie POC GLUCOSE WHOLE BLOOD 2018-06-02 22:37:00 Chalise, Vitaliy Tiffanie ACTIVATED PARTIAL 2018-06-02 22:32:00 Savanna Ruiz THROMBOPLASTIN TIME (APTT) HEPATITIS B SURFACE ANTIGEN 2018-06-02 18:52:00 Ariel Hess POC GLUCOSE WHOLE BLOOD 2018-06-02 17:04:00 Chalise, Vitaliy Tiffanie ACTIVATED PARTIAL 2018-06-02 17:00:00 Savanna Ruiz THROMBOPLASTIN TIME (APTT) POC GLUCOSE WHOLE BLOOD 2018-06-02 16:56:00 Chalise, Vitaliy Tiffanie POC GLUCOSE WHOLE BLOOD 2018-06-02 12:23:00 Chalise, Vitaliy Tiffanie ACTIVATED PARTIAL 2018-06-02 11:42:00 Savanna Ruiz THROMBOPLASTIN TIME (APTT) HEMODIALYSIS 2018-06-02 10:19:11 Ariel Hess CREATINE KINASE, TOTAL AND MB 2018-06-02 08:58:00 Savanna Ruiz FRACTION TROPONIN I 2018-06-02 08:58:00 Savanna Ruiz ECHOCARDIOGRAM 2D COMPLETE 2018-06-02 08:14:55 Savanna Ruiz POC GLUCOSE WHOLE BLOOD 2018-06-02 08:08:00 Chalise, Vitaliy Tiffanie ECG 12-LEAD 2018-06-02 06:53:00 Aureaise, Vitaliy Tiffanie ECG 12-LEAD 2018-06-02 05:41:26 Savanna Ruiz XR CHEST SINGLE VIEW PORTABLE 2018-06-02 04:41:00 Savanna Ruiz RENAL FUNCTION PANEL (RFP) 2018-06-02 04:07:00 Oh Damico ACTIVATED PARTIAL 2018-06-02 04:07:00 Savanna Ruiz THROMBOPLASTIN TIME (APTT) COMPLETE BLOOD COUNT (CBC) 2018-06-02 04:07:00 Damico Oh Redman WITH DIFFERENTIAL CREATINE KINASE, TOTAL AND MB 2018-06-02 04:07:00 Savanna Ruiz FRACTION TROPONIN I 2018-06-02 04:07:00 Savanna Ruiz INCENTIVE SPIROMETRY 2018-06-02 02:41:01 Savanna Ruiz RESPIRATORY CARE INSTRUCT ADMISSION WEIGHT 2018-06-02 02:41:01 Savanna Ruiz ECG 2018-06-02 00:00:00 Provider, On-File TYPE AND SCREEN 2018-06-01 21:50:00 Savanna Ruiz COMPREHENSIVE METABOLIC PANEL 2018-06-01 21:32:00 Savanna uRiz (CMP) CALCIUM, IONIZED 2018-06-01 21:32:00 Savanna Ruiz MAGNESIUM 2018-06-01 21:32:00 Savanna Ruiz PHOSPHORUS 2018-06-01 21:32:00 Savanna Ruiz COMPLETE BLOOD COUNT (CBC) 2018-06-01 21:32:00 Savanna Ruiz CREATINE KINASE, TOTAL AND MB 2018-06-01 21:32:00 Savanna Ruiz FRACTION TROPONIN I 2018-06-01 21:32:00 Savanna Ruiz ECG 12-LEAD 2018-06-01 21:22:17 Savanna Ruiz OFFICE/OUTPATIENT VISIT EST 2018-03-21 10:30:00 HEMOGLOBIN A1C LEVEL < 7.0% 2017-10-07 15:15:00 OFFICE/OUTPATIENT VISIT EST 2017-10-07 15:15:00 OFFICE/OUTPATIENT VISIT EST 2017-08-05 14:30:00 OFFICE/OUTPATIENT VISIT EST 2017-06-18 14:00:00 OFFICE/OUTPATIENT VISIT EST 2017-01-31 10:15:00 OFFICE/OUTPATIENT VISIT EST 2017-01-03 10:15:00 Results Test Description Test Time Test Comments Text Results Atomic Results Result Comments LDL-CHOLESTEROL 2020-06-02 04:02:00 Test Item Value Reference Range Comments LDL-CHOLESTEROL 82 <=99 Reference range: <100Desirable range <100 mg/dL for primary (test code = mg/dL prevention;<70 m g/dL for patients with CHD or diabetic 95755-6) (calc) patientswith > o r = 2 CHD risk factors.LDL-C is now calculated using the River[facility] Institutecalculation, which is a validated novel method providingbetter accuracy than the Friedewald equat ion in theestimation of LDL-C.River CLIFTON et al. ALEAH. 2013;3 10(19): 2306-4510(http:/ /education.BeGo.PFI Acquisition/faq/DRI264) CHOL/HDLC [id number] 04:02:00 Test Item Value Reference Range Comments CHOL/HDLC RATIO (test code = 9830-1) 4.0 (calc) <5.0 NON HDL [id number] 04:02:00 Test Item Value Reference Range Comments NON HDL CHOLESTEROL (test 109 mg/dL (calc) <130 For p atients with code = 13324-5) diabetes plus 1 major ASCVD riskfactor , treating to a no n-HDL-C goal of <100 mg/ dL(LDL-C of <70 mg/dL) is considered a therapeuticoptio n. COMPREHENSIVE METABOLIC [id number] 04:02:00 Test Item Value Reference Range Comments GLUCOSE (test code = 164 mg/dL 65-99 Fasting ref erence 2345-7) intervalFor some one without known diabetes, a glucosevalue >12 5 mg/dL indicates that t hey may havediabetes and this should be confirmed wit h afollow-up test. UREA NITROGEN (BUN) 41 mg/dL 7-25 (test code = 3094-0) CREATININE (test code = 4.69 mg/dL 0.50-1.05 For stephanie ents >49 years of 2160-0) age, the referen ce limitfor Creatinine is ap proximately 13% higher for peopleidentified as -[place]i . eGFR NON-AFR. [place] 10 mL/min/1.73m2 >=60 (test code = 48456-3) eGFR 11 mL/min/1.73m2 >=60 (test code = 59799-7) BUN/CREATININE RATIO 9 (calc) 6-22 (test code = 3097-3) SODIUM (test code = 141 mmol/L 610-797 7600-2) POTASSIUM (test code = 3.8 mmol/L 3.5-5.3 2823-3) CHLORIDE (test code = 98 mmol/L 98-110 5-0) CARBON DIOXIDE (test 31 mmol/L 20-32 code = 2027-9) CALCIUM (test code = 8.7 mg/dL 8.6-10.4 18726-2) PROTEIN, TOTAL (test 6.8 g/dL 6.1-8.1 code = 2885-2) ALBUMIN (test code = 3.9 g/dL 3.6-5.1 1751-7) GLOBULIN (test code = 2.9 g/dL (calc) 1.9-3.7 78918-0) ALBUMIN/GLOBULIN RATIO 1.3 (calc) 1.0-2.5 (test code = 1759-0) BILIRUBIN, TOTAL (test 0.5 mg/dL 0.2-1.2 code = 1974-2) ALKALINE PHOSPHATASE 220 U/L 37-153 (test code = 6768-6) AST (test code = 1920-8) 13 U/L 10-35 ALT (test code = 1742-6) 10 U/L 6-29 CBC (H/H, RBC, INDICES, WBC, PLT)2020-06-02 04:02:00 Test Item Value Reference Range Comments WHITE BLOOD CELL COUNT (test code = 6690-2) 9.2 Thousand/uL 3.8- 10.8 RED BLOOD CELL COUNT (test code = 789-8) 4.10 Million/uL 3.80-5. 10 HEMOGLOBIN (test code = 718-7) 13.3 g/dL 11.7-15.5 HEMATOCRIT (test code = 4544-3) 40.2 % 35.0-45.0 MCV (test code = 787-2) 98.0 fL 80.0-100.0 MCH (test code = 785-6) 32.4 pg 27.0-33.0 MCHC (test code = 786-4) 33.1 g/dL 32.0-36.0 RDW (test code = 788-0) 12.9 % 11.0-15.0 PLATELET COUNT (test code = 777-3) 233 Thousand/uL 140-400 MPV (test code = 776-5) 10.2 fL 7.5-12.5 CHOLESTEROL, [id number] 04:02:00 Test Item Value Reference Range Comments CHOLESTEROL, TOTAL (test code = 2093-3) 145 mg/dL <200 HDL [id number] 04:02:00 Test Item Value Reference Range Comments HDL CHOLESTEROL (test code = 2085-9) 36 mg/dL >=50 [id number] 04:02:00 Test Item Value Reference Range Comments TRIGLYCERIDES (test code = 2571-8) 176 mg/dL <150 CBC (H/H, RBC, INDICES, WBC, PLT)2020-06-01 09:15:00 Test Item Value Reference Range Comments PLATELET COUNT (test code = 91491273) 233 Thousand/uL 140-400 RED BLOOD CELL COUNT (test code = 08749418) 4.10 Million/uL 3.80 -5.10 RDW (test code = 63322533) 12.9 % 11.0-15.0 HEMATOCRIT (test code = 75937086) 40.2 % 35.0-45.0 WHITE BLOOD CELL COUNT (test code = 9.2 Thousand/uL 3.8-10.8 77321010) HEMOGLOBIN (test code = 06937826) 13.3 g/dL 11.7-15.5 MCH (test code = 62131307) 32.4 pg 27.0-33.0 MCHC (test code = 91797982) 33.1 g/dL 32.0-36.0 MPV (test code = 91521114) 10.2 fL 7.5-12.5 MCV (test code = 43121333) 98.0 fL 80.0-100.0 COMPREHENSIVE METABOLIC [id number] 09:15:00 Test Item Value Reference Range Comments AST (test code = 95901752) 13 U/L 10-35 GLOBULIN (test code = 45073337) 2.9 g/dL (calc) 1.9-3.7 SODIUM (test code = 82543782) 141 mmol/L 135-146 eGFR NON-AFR. [place] (test code = 10 mL/min/1.73m2 > OR = 60 57376104) GLUCOSE (test code = 34024959) 164 mg/dL 65-99 ALBUMIN/GLOBULIN RATIO (test code = 1.3 (calc) 1.0-2.5 12811218) CREATININE (test code = 68686182) 4.69 mg/dL 0.50-1.05 BILIRUBIN, TOTAL (test code = 03590308) 0.5 mg/dL 0.2-1.2 UREA NITROGEN (BUN) (test code = 38774192) 41 mg/dL 7-25 ALT (test code = 83935347) 10 U/L 6-29 ALBUMIN (test code = 15957090) 3.9 g/dL 3.6-5.1 eGFR (test code = 11 mL/min/1.73m2 > OR = 60 52964669) ALKALINE PHOSPHATASE (test code = 32041506) 220 U/L 37-1 53 POTASSIUM (test code = 41301011) 3.8 mmol/L 3.5-5.3 CALCIUM (test code = 09867480) 8.7 mg/dL 8.6-10.4 CHLORIDE (test code = 17849569) 98 mmol/L 98-110 BUN/CREATININE RATIO (test code = 56483197) 9 (calc) 6-22 CARBON DIOXIDE (test code = 52587535) 31 mmol/L 20-32 PROTEIN, TOTAL (test code = 69181884) 6.8 g/dL 6.1-8.1 LIPID PANEL, [id number] 09:15:00 Test Item Value Reference Range Comments NON HDL CHOLESTEROL (test code = 10185032) 109 mg/dL (calc) <130 HDL CHOLESTEROL (test code = 23697410) 36 mg/dL > OR = 50 LDL-CHOLESTEROL (test code = 75969235) 82 mg/dL (calc) CHOLESTEROL, TOTAL (test code = 67585870) 145 mg/dL <200 CHOL/HDLC RATIO (test code = 39726410) 4.0 (calc) <5.0 TRIGLYCERIDES (test code = 24845027) 176 mg/dL <150 Hemoglobin A1C\S\2020-06-01 08:15:00 Test Item Value Reference Range Comments HgbA1C, Fingerstick (test code = 4548-4) 8.0 % 4-5.6 BV/VAGINITIS PANEL DNA [id number] 14:12:00SEE NOTETHINPREP TIS AND HPV mRNA [id number] 13:35:00 Test Item Value Reference Range Comments PREV. PAP: (test code = UNKNOWN 97186240) PREV. BX: (test code = UNKNOWN 90855473) SOURCE: (test code = Vagina, Cervix 54941295) INTERPRETATION/RESULT: Negative for intraepithelial (test code = 06133-0) lesion or malignancy. LMP: (test code = 45663706) 19990916 HPV mRNA E6/E7 (test code = Not Detected Not Detected 65561-3) CLINICAL INFORMATION: (test Normal exam code = 80101841) COMMENT: (test code = This Pap test has been evaluated ) with computer assisted technology. Hemoglobin A1C\S\2020-01-13 11:00:00 Test Item Value Reference Range Comments HgbA1C, Fingerstick (test code = 4548-4) 6.0 % 4-5.6 HEMOGLOBIN A1c WITH [id number] 10:10:00 Test Item Value Reference Range Comments HEMOGLOBIN A1c (test code = 4548-4) 6.7 % of total Hgb <5.7 eAG (mg/dL) (test code = 00883688) 146 (calc) eAG (mmol/L) (test code = 47902672) 8.1 (calc) LIPID PANEL, [id number] 10:10:00 Test Item Value Reference Range Comments CHOL/HDLC RATIO (test code = 11909490) 3.5 (calc) <5.0 HDL CHOLESTEROL (test code = 95285780) 42 mg/dL > OR = 50 CHOLESTEROL, TOTAL (test code = 53444443) 146 mg/dL <200 NON HDL CHOLESTEROL (test code = 95950460) 104 mg/dL (calc) <130 TRIGLYCERIDES (test code = 79520254) 120 mg/dL <150 LDL-CHOLESTEROL (test code = 48122564) 82 mg/dL (calc) COMPREHENSIVE METABOLIC [id number] 10:10:00 Test Item Value Reference Range Comments GLOBULIN (test code = 14633986) 3.1 g/dL (calc) 1.9-3.7 SODIUM (test code = 82457232) 143 mmol/L 135-146 AST (test code = 90817789) 36 U/L 10-35 CARBON DIOXIDE (test code = 32599240) 28 mmol/L 20-32 GLUCOSE (test code = 14612976) 88 mg/dL 65-99 CREATININE (test code = 32847052) 4.33 mg/dL 0.50-1.05 UREA NITROGEN (BUN) (test code = 10513356) 40 mg/dL 7-25 PROTEIN, TOTAL (test code = 57486562) 6.6 g/dL 6.1-8.1 CHLORIDE (test code = 01593332) 101 mmol/L 98-110 BILIRUBIN, TOTAL (test code = 05214916) 0.4 mg/dL 0.2-1.2 ALBUMIN (test code = 35117930) 3.5 g/dL 3.6-5.1 BUN/CREATININE RATIO (test code = 64753023) 9 (calc) 6-22 POTASSIUM (test code = 47552826) 4.3 mmol/L 3.5-5.3 ALBUMIN/GLOBULIN RATIO (test code = 1.1 (calc) 1.0-2.5 34343807) CALCIUM (test code = 18073301) 8.1 mg/dL 8.6-10.4 eGFR (test code = 12 mL/min/1.73m2 > OR = 60 22779090) eGFR NON-AFR. [place] (test code = 10 mL/min/1.73m2 > OR = 60 02968238) ALKALINE PHOSPHATASE (test code = 20732430) 233 U/L 37-1 53 ALT (test code = 10856511) 38 U/L 6-29 HEPATIC FUNCTION [id number] 10:10:00 Test Item Value Reference Range Comments BILIRUBIN, DIRECT (test code = 21614396) 0.1 mg/dL < OR = 0.2 GLOBULIN (test code = 50527524) 3.1 g/dL (calc) 1.9-3.7 ALKALINE PHOSPHATASE (test code = 05930723) 233 U/L 37-1 53 ALT (test code = 48192274) 38 U/L 6-29 BILIRUBIN, TOTAL (test code = 51053282) 0.4 mg/dL 0.2-1.2 ALBUMIN (test code = 28314176) 3.5 g/dL 3.6-5.1 BILIRUBIN, INDIRECT (test code = 71375288) 0.3 mg/dL (calc) 0.2- 1.2 ALBUMIN/GLOBULIN RATIO (test code = 1.1 (calc) 1.0-2.5 18859589) AST (test code = 37681931) 36 U/L 10-35 PROTEIN, TOTAL (test code = 95379967) 6.6 g/dL 6.1-8.1 CBC (H/H, RBC, INDICES, WBC, PLT)2019-10-21 10:10:00 Test Item Value Reference Range Comments WHITE BLOOD CELL COUNT (test code = 7.0 Thousand/uL 3.8-10.8 32840308) RED BLOOD CELL COUNT (test code = 32632318) 3.84 Million/uL 3.80 -5.10 PLATELET COUNT (test code = 34282430) 201 Thousand/uL 140-400 MCV (test code = 37242282) 94.3 fL 80.0-100.0 HEMATOCRIT (test code = 52643223) 36.2 % 35.0-45.0 MCHC (test code = 32143894) 32.9 g/dL 32.0-36.0 MPV (test code = 70795990) 10.0 fL 7.5-12.5 HEMOGLOBIN (test code = 92598686) 11.9 g/dL 11.7-15.5 RDW (test code = 07138347) 13.3 % 11.0-15.0 MCH (test code = 74152923) 31.0 pg 27.0-33.0 Hemoglobin A1C\S\2019-04-15 10:15:00 Test Item Value Reference Range Comments HgbA1C, Fingerstick (test code = 4548-4) 4.9 % 4-5.6 POC Glucose Whole [id number] 11:39:00 Test Item Value Reference Range Comments POC Glucose (test code = 93 mg/dL 70-140 ALERT V ALUES <50 or 85009240) >250 Adult <70 o r >350 PERFORMED AT [facility] POCT PROGRAM Ple ase note that the above l isted reference range is for NONFASTING GLUCO SE levels only. FASTING GL UCOSE reference ranges are shown below: FASTING R EFERENCE RANGES: NORMAL: 70-99 mg/dL PRE-DIABETES: 10 0-125 mg/dL DIABETES: >125 m g/dL RANGES FOR NEONATES ARE DEPENDENT ON GESTATIONAL A GE AND WEIGHT. JAY JAY (test code = JAY JAY) Lab Interpretation (test code = Normal 98298-6) Activating Clotting Time (ACT)2018-06-06 10:48:00 Test Item Value Reference Range Comments Activating Coagulation Time 289 113- 149 seconds se c Therapeutic or target values Low Range (test code = differ by procedure. 59050469) Activated Coagulation Time 81- 125 seconds sec Therapeutic or target values Plus (test code = 76023484) diff er by procedure. POC Glucose Whole [id number] 07:37:00 Test Item Value Reference Range Comments POC Glucose (test code = 89 mg/dL 70-140 ALERT V ALUES <50 or 90347591) >250 Adult <70 o r >350 PERFORMED AT [facility] POCT PROGRAM Please n ote that the above listed ref erence range is for NONFASTIN G GLUCOSE levels only. FAS TING GLUCOSE reference ranges are shown below: FASTING R EFERENCE RANGES: NORMAL: 70-99 mg/dL PRE-DIABETES: 10 0-125 mg/dL DIABETES: >125 m g/dL RANGES FOR NEONATES ARE DEPENDENT ON GESTATIONAL AGE AND WEIGHT. TRINA Comment (test code = RN Notified [id number]) JAY JAY (test code = JAY JAY) Basic Metabolic Panel (BMP)2018-06-06 06:36:00 Test Item Value Reference Range Comments Sodium (test code = 2951-2) 133 mmol/L 135-145 Potassium (test code = 2823-3) 4.4 mmol/L 3.5-5 Chloride (test code = 2075-0) 102 mmol/L 98-108 Carbon Dioxide (CO2) (test 20 mmol/L 21-30 code = 8-9) Urea Nitrogen (BUN) (test code 61 mg/dL 7-20 = 3094-0) Creatinine (test code = 5.0 mg/dL 0.4-1 2160-0) Glucose (test code = 2345-7) 99 mg/dL 70-140 Int erpretive Data: Please note that the ab ove listed reference range fo r NONFASTING GLUCOSE levels o nly. FASTING GLUCOSE referenc e ranges are shown below: FASTING GLUCOSE REFERENCE RANGE NORMAL: 70 - 99mg/dL PREDIABETES: 100 - 125 mg/dL DIABETES: > 125 m g/dL Calcium (test code = 49345-9) 8.3 mg/dL 8.7-10.2 Anion Gap (test code = 11 mmol/L 3-12 69640-0) BUN/CREA Ratio (test code = 12 20-30 3097-3) BUN/CREA Ratio (test code = 12 <30 42423781) Glomerular Filtration Rate <15 mL/min/1.73sq m Inter pretive Ranges for (eGFR), MDRD Estimate (test Stephanie ents with Chronic Kidney code = 38719-7) Disease: eGFR: > 60 mL/min - Norm al eGFR: 30 - 59 mL/min - Moderat eli Decreased eGFR: 15 - 29 mL/min - Severel y Decreased eGFR: < 15 mL/min -Kidney Fail ure Note: These GFR calcul ations do not apply in acu te situations when GFR is changing rapidly or in patients on dial ysis. Lab Interpretation (test code Abnormal = 18728-1) POC Glucose Whole [id number] 06:32:00 Test Item Value Reference Range Comments POC Glucose (test code = 120 mg/dL 70-140 ALERT V ALUES <50 or 65521608) >250 Adult <70 o r >350 PERFORMED AT [facility] POCT PROGRAM Ple ase note that the above l isted reference range is for NONFASTING GLUCO SE levels only. FASTING GL UCOSE reference ranges are shown below: FASTING R EFERENCE RANGES: NORMAL: 70-99 mg/dL PRE-DIABETES: 10 0-125 mg/dL DIABETES: >125 m g/dL RANGES FOR NEONATES ARE DEPENDENT ON GESTATIONAL A GE AND WEIGHT. JAY JAY (test code = JAY JAY) Lab Interpretation (test code = Normal 08625-9) Complete Blood Count (CBC)2018-06-06 06:09:00 Test Item Value Reference Range Comments WBC (White Blood Cell Count) (test code = 9.0 4.8- 10.8 x10 9 80498-7) /L Hemoglobin (test code = 718-7) 9.1 g/dL 12-15.5 Hematocrit (test code = 4544-3) 28.8 % 35-45 Plt (platelets) (test code = 04113-4) 247 15 0- 450 x10 9 /L MCV (Mean Corpuscular Volume) (test code = 94 fL 80-98 787-2) MCH (Mean Corpuscular Hemoglobin) (test code = 29.8 pg 2 6.5-34 785-6) MCHC (Mean Corpuscular Hemoglobin 31.6 % 31.4-36 Concentration) (test code = 786-4) RBC (Red Blood Cell Count) (test code = 3.05 3.77- 5.16 x10 1 37407-1) 2/L RDW-CV (Red Cell Distribution Width) (test 14.6 % 11.5- 14.5 code = 33428-3) NRBC (Nucleated Red Blood Cell Count) (test 0.00 0.00- 0.00 x10 9 code = 61477-8) /L NRBC % (Nucleated Red Blood Cell %) (test code 0.0 % = 85842-2) MPV (Mean Platelet Volume) (test code = 10.6 fL 7.2-11.7 79945192) Lab Interpretation (test code = 13311-8) Abnormal POC Glucose Whole [id number] 00:47:00 Test Item Value Reference Range Comments POC Glucose (test code = 92 mg/dL 70-140 ALERT V ALUES <50 or 64915580) >250 Adult <70 o r >350 PERFORMED AT [facility] POCT PROGRAM Ple ase note that the above l isted reference range is for NONFASTING GLUCO SE levels only. FASTING GL UCOSE reference ranges are shown below: FASTING R EFERENCE RANGES: NORMAL: 70-99 mg/dL PRE-DIABETES: 10 0-125 mg/dL DIABETES: >125 m g/dL RANGES FOR NEONATES ARE DEPENDENT ON GESTATIONAL A GE AND WEIGHT. JAY JAY (test code = JAY JAY) Lab Interpretation (test code = Normal 02048-4) POC Glucose Whole [id number] 20:51:00 Test Item Value Reference Range Comments POC Glucose (test code = 112 mg/dL 70-140 ALERT V ALUES <50 or 54022915) >250 Adult <70 o r >350 PERFORMED AT [facility] POCT PROGRAM Ple ase note that the above l isted reference range is for NONFASTING GLUCO SE levels only. FASTING GL UCOSE reference ranges are shown below: FASTING R EFERENCE RANGES: NORMAL: 70-99 mg/dL PRE-DIABETES: 10 0-125 mg/dL DIABETES: >125 m g/dL RANGES FOR NEONATES ARE DEPENDENT ON GESTATIONAL A GE AND WEIGHT. JAY JAY (test code = JAY JAY) Lab Interpretation (test code = Normal 28038-3) POC Glucose Whole [id number] 18:28:00 Test Item Value Reference Range Comments POC Glucose (test code = 123 mg/dL 70-140 ALERT V ALUES <50 or 75562444) >250 Adult <70 o r >350 PERFORMED AT [facility] POCT PROGRAM Ple ase note that the above l isted reference range is for NONFASTING GLUCO SE levels only. FASTING GL UCOSE reference ranges are shown below: FASTING R EFERENCE RANGES: NORMAL: 70-99 mg/dL PRE-DIABETES: 10 0-125 mg/dL DIABETES: >125 m g/dL RANGES FOR NEONATES ARE DEPENDENT ON GESTATIONAL A GE AND WEIGHT. JAY JAY (test code = JAY JAY) Lab Interpretation (test code = Normal 28123-5) Creatine Kinase (CK), Total and MB Fraction (CKMB)2018-06-05 16:52:00 Test Item Value Reference Range Comments Creatine Kinase (CK) (test code = 2157-6) 57 U/L 30-220 CK- MB (Creatine Kinase, MB Fraction) (test code = 5 ng/mL 0-8 80566-3) MB RELATIVE PERCENT (test code = 48361044) 9 % 0-4 Lab Interpretation (test code = 26140-8) Abnormal POC Glucose Whole [id number] 12:55:00 Test Item Value Reference Range Comments POC Glucose (test code = 137 mg/dL 70-140 ALERT V ALUES <50 or 08136208) >250 Adult <70 o r >350 PERFORMED AT [facility] POCT PROGRAM Please n ote that the above listed ref erence range is for NONFASTIN G GLUCOSE levels only. FAS TING GLUCOSE reference ranges are shown below: FASTING R EFERENCE RANGES: NORMAL: 70-99 mg/dL PRE-DIABETES: 10 0-125 mg/dL DIABETES: >125 m g/dL RANGES FOR NEONATES ARE DEPENDENT ON GESTATIONAL AGE AND WEIGHT. RALS Comment (test code = RN Notified [id number]) JAY JAY (test code = JAY JAY) POC Glucose Whole [id number] 07:38:00 Test Item Value Reference Range Comments POC Glucose (test code = 151 mg/dL 70-140 ALERT V ALUES <50 63567938) or >250 Adult <7 0 or >350 PERFORMED AT [facility] POCT PROGRAM Ple ase note that the above l isted reference range is for NONFASTING GLUCO SE levels only. FASTING GL UCOSE reference ranges are shown below: FASTING R EFERENCE RANGES: NORMAL: 70-99 mg/dL PRE-DIABETES: 10 0-125 mg/dL DIABETES: >125 m g/dL RANGES FOR NEONATES ARE DEPENDENT ON GESTATIONAL A GE AND WEIGHT. RALLorrie Comment (test code = RN Notified [id number]) JAY JAY (test code = JAY JAY) Lab Interpretation (test code Abnormal = 84313-2) Basic Metabolic Panel (BMP)2018-06-05 06:51:00 Test Item Value Reference Range Comments Sodium (test code = 2951-2) 136 mmol/L 135-145 Potassium (test code = 2823-3) 4.2 mmol/L 3.5-5 Chloride (test code = 2075-0) 95 mmol/L 98-108 Carbon Dioxide (CO2) (test 23 mmol/L -30 code = 8-9) Urea Nitrogen (BUN) (test code 41 mg/dL -20 = 3094-0) Creatinine (test code = 3.6 mg/dL 0.4-1 2160-0) Glucose (test code = 2345-7) 105 mg/dL 70-140 Int erpretive Data: Please note that the ab ove listed reference range fo r NONFASTING GLUCOSE levels o nly. FASTING GLUCOSE referenc e ranges are shown below: FASTING GLUCOSE REFERENCE RANGE NORMAL: 70 - 99mg/dL PREDIABETES: 100 - 125 mg/dL DIABETES: > 125 m g/dL Calcium (test code = 86182-5) 9.2 mg/dL 8.7-10.2 Anion Gap (test code = 18 mmol/L 3-12 56660-9) BUN/CREA Ratio (test code = 11 20-30 3097-3) BUN/CREA Ratio (test code = 11 <30 00907851) Glomerular Filtration Rate <15 mL/min/1.73sq m Inter pretive Ranges for (eGFR), MDRD Estimate (test Stephanie ents with Chronic Kidney code = 26394-1) Disease: eGFR: > 60 mL/min - Norm al eGFR: 30 - 59 mL/min - Moderat eli Decreased eGFR: 15 - 29 mL/min - Severel y Decreased eGFR: < 15 mL/min -Kidney Fail ure Note: These GFR calcul ations do not apply in acu te situations when GFR is changing rapidly or in patients on dial ysis. Lab Interpretation (test code Abnormal = 06026-2) Creatine Kinase (CK), Total and MB Fraction (CKMB)2018-06-05 06:51:00 Test Item Value Reference Range Comments Creatine Kinase (CK) (test code = 2157-6) 42 U/L 30-220 CK- MB (Creatine Kinase, MB Fraction) (test code = 4 ng/mL 0-8 89446-0) MB RELATIVE PERCENT (test code = 11845046) 10 % 0-4 Lab Interpretation (test code = 46050-9) Abnormal Complete Blood Count (CBC)2018-06-05 06:19:00 Test Item Value Reference Range Comments WBC (White Blood Cell Count) (test code = 8.2 4.8- 10.8 x10 9 73721-3) /L Hemoglobin (test code = 718-7) 9.7 g/dL 12-15.5 Hematocrit (test code = 4544-3) 30.0 % 35-45 Plt (platelets) (test code = 15370-9) 251 15 0- 450 x10 9 /L MCV (Mean Corpuscular Volume) (test code = 93 fL 80-98 787-2) MCH (Mean Corpuscular Hemoglobin) (test code = 29.9 pg 2 6.5-34 785-6) MCHC (Mean Corpuscular Hemoglobin 32.3 % 31.4-36 Concentration) (test code = 786-4) RBC (Red Blood Cell Count) (test code = 3.24 3.77- 5.16 x10 1 50322-6) 2/L RDW-CV (Red Cell Distribution Width) (test 14.9 % 11.5- 14.5 code = 25577-7) NRBC (Nucleated Red Blood Cell Count) (test 0.00 0.00- 0.00 x10 9 code = 56645-5) /L NRBC % (Nucleated Red Blood Cell %) (test code 0.0 % = 01646-9) MPV (Mean Platelet Volume) (test code = 10.5 fL 7.2-11.7 03248593) Lab Interpretation (test code = 02756-8) Abnormal POC Glucose Whole [id number] 04:49:00 Test Item Value Reference Range Comments POC Glucose (test code = 118 mg/dL 70-140 ALERT V ALUES <50 or 46305565) >250 Adult <70 o r >350 PERFORMED AT [facility] POCT PROGRAM Ple ase note that the above l isted reference range is for NONFASTING GLUCO SE levels only. FASTING GL UCOSE reference ranges are shown below: FASTING R EFERENCE RANGES: NORMAL: 70-99 mg/dL PRE-DIABETES: 10 0-125 mg/dL DIABETES: >125 m g/dL RANGES FOR NEONATES ARE DEPENDENT ON GESTATIONAL A GE AND WEIGHT. JAY JAY (test code = JAY JAY) Lab Interpretation (test code = Normal 18012-6) ECG [id number] 03:47:18 Test Item Value Reference Range Comments Vent Rate (bpm) (test code = 4107403021) 80 [place] Interval (msec) (test code = 9326685278) 142 QRS Interval (msec) (test code = 1614083283) 94 QT Interval (msec) (test code = 1622348650) 370 QTc (msec) (test code = 6816875918) 426 JAY JAY (test code = JAY JAY) POC Glucose Whole [id number] 03:40:00 Test Item Value Reference Range Comments POC Glucose (test code = 75 mg/dL 70-140 ALERT V ALUES <50 or 11988884) >250 Adult <70 o r >350 PERFORMED AT [facility] POCT PROGRAM Ple ase note that the above l isted reference range is for NONFASTING GLUCO SE levels only. FASTING GL UCOSE reference ranges are shown below: FASTING R EFERENCE RANGES: NORMAL: 70-99 mg/dL PRE-DIABETES: 10 0-125 mg/dL DIABETES: >125 m g/dL RANGES FOR NEONATES ARE DEPENDENT ON GESTATIONAL A GE AND WEIGHT. JAY JAY (test code = JAY JAY) Lab Interpretation (test code = Normal 05665-3) Creatine Kinase (CK), Total and MB Fraction (CKMB)2018-06-05 00:41:00 Test Item Value Reference Range Comments Creatine Kinase (CK) (test code = 2157-6) 35 U/L 30-220 CK- MB (Creatine Kinase, MB Fraction) (test code = 3 ng/mL 0-8 18247-6) MB RELATIVE PERCENT (test code = 91536224) 9 % 0-4 Lab Interpretation (test code = 56301-1) Abnormal POC Glucose Whole [id number] 20:24:00 Test Item Value Reference Range Comments POC Glucose (test code = 133 mg/dL 70-140 ALERT V ALUES <50 or 68877039) >250 Adult <70 o r >350 PERFORMED AT [facility] POCT PROGRAM Ple ase note that the above l isted reference range is for NONFASTING GLUCO SE levels only. FASTING GL UCOSE reference ranges are shown below: FASTING R EFERENCE RANGES: NORMAL: 70-99 mg/dL PRE-DIABETES: 10 0-125 mg/dL DIABETES: >125 m g/dL RANGES FOR NEONATES ARE DEPENDENT ON GESTATIONAL A GE AND WEIGHT. JAY JAY (test code = JAY JAY) Lab Interpretation (test code = Normal 58862-5) Activated Partial Thromboplastin Time (APTT)2018-06-04 19:48:00 Test Item Value Reference Range Comments Act Partial Thromboplastin Time 78.9 26.8- 37.1 sec Therapeutic Range (Heparin) (test code = 29557-6) = 65-95 se conds Note: The therapeutic rang e for Heparin has been determined using ex-vivo wh ole blood samples and ther apeutic Heparin level of 0.30-0.70 anti-factor Xa u nits. Lab Interpretation (test code = Abnormal 95569-5) POC Glucose Whole [id number] 19:35:00 Test Item Value Reference Range Comments POC Glucose (test code = 65 mg/dL 70-140 ALERT V ALUES <50 or 34008265) >250 Adult <70 o r >350 PERFORMED AT [facility] POCT PROGRAM Ple ase note that the above l isted reference range is for NONFASTING GLUCO SE levels only. FASTING GL UCOSE reference ranges are shown below: FASTING R EFERENCE RANGES: NORMAL: 70-99 mg/dL PRE-DIABETES: 10 0-125 mg/dL DIABETES: >125 m g/dL RANGES FOR NEONATES ARE DEPENDENT ON GESTATIONAL A GE AND WEIGHT. JAY JAY (test code = JAY JAY) Lab Interpretation (test code = Abnormal 76761-4) POC Glucose Whole [id number] 19:35:00 Test Item Value Reference Range Comments POC Glucose (test code = 85 mg/dL 70-140 ALERT V ALUES <50 or 30993157) >250 Adult <70 o r >350 PERFORMED AT [facility] POCT PROGRAM Ple ase note that the above l isted reference range is for NONFASTING GLUCO SE levels only. FASTING GL UCOSE reference ranges are shown below: FASTING R EFERENCE RANGES: NORMAL: 70-99 mg/dL PRE-DIABETES: 10 0-125 mg/dL DIABETES: >125 m g/dL RANGES FOR NEONATES ARE DEPENDENT ON GESTATIONAL A GE AND WEIGHT. JAY JAY (test code = JAY JAY) Lab Interpretation (test code = Normal 76170-8) CATH right heart and coronary angiography and left [id number] 17:59:11 Impressions: Severe instent restenosis mid LAD s/p successful PCI with ALETHEA x 1 Severe quinault CAD including subtotal occlusion of the mid-distal LCx and D2 - small caliber vessels - not targets for PCI or CABG Diffuse borderline severe stenoses in the proximal LCx and mid RCA - favor medical therapy Moderate ostial LM stenosis Patient deemed to be non-candidate for CABG given multiple comorbidities including ESRD, advanced PAD and prior amputation Proceeded with PCI of LAD Intervention: XB 3 SH guide, BMW wire. Predilated with 2.25/12 emerge.Stented with 2.5/18 Anton ALETHEA at 12 shae and post dilated with a 2.5/12 NC balloon at 16 shae with a good angiographic result. Recommendations: Continue ASA indefinitely and clopidogrel for at least 12 mos Aggressive RF modification Consider FFR and PCI of proximal LCx and/or mid RCA if she has recurrent ischemic symptoms Medical therapy for small vessel disease Favor HD tomorrow given contrast load today Interface, Text Results In 06/04/2018 6:07 PM EDT I mpressions: Severe instent restenosis mid LAD s/p successful PCI with ALETHEA x 1 Severe qu[place] CAD including subtotal occlusion of the mid-distal LCx and D2 - small caliber vessels - not targets for PCI or CABG Diffuse borderline severe stenoses in the proximal LCx and mid RCA - favor medical therapy Moderate ostial LM stenosis Patient deemed to be non-candidate for CABG given multiple comorbidities including ESRD, advanced PAD and prior amputation Proceeded with PCI of LAD Intervention: XB 3 SH guide,BMW wire. Predilated with 2.25/12 emerge. Stented with 2.5/18 Leland ALETHEA at 12 shae and post dilated with a 2.5/12 NC balloon at 16 shae with a good angiographic result. Recommendations: Continue ASA indefi nitely and clopidogrel for at least 12 mos Aggressive RF modification Consider FFR and PCI of proximal LCx and/or mid RCA if she has recurrent ischemic symptoms Medical therapy for small vessel diseaseFavor HD tomorrow given contrast load todayOccult Blood, Screen [id number] 13:36:00 Test Item Value Reference Range Comments Occult Blood Screening (test code = 60772707) Negative Ne gative Lab Interpretation (test code = 47346-2) Normal Activated Partial Thromboplastin Time (APTT)2018-06-04 13:12:00 Test Item Value Reference Range Comments Act Partial Thromboplastin Time 64.1 26.8- 37.1 sec Therapeutic Range (Heparin) (test code = 20026-3) = 65-95 se conds Note: The therapeutic rang e for Heparin has been determined using ex-vivo wh ole blood samples and ther apeutic Heparin level of 0.30-0.70 anti-factor Xa u nits. Lab Interpretation (test code = Abnormal 27228-3) POC Glucose Whole [id number] 11:31:00 Test Item Value Reference Range Comments POC Glucose (test code = 90 mg/dL 70-140 ALERT V ALUES <50 or 21967603) >250 Adult <70 o r >350 PERFORMED AT [facility] POCT PROGRAM Ple ase note that the above l isted reference range is for NONFASTING GLUCO SE levels only. FASTING GL UCOSE reference ranges are shown below: FASTING R EFERENCE RANGES: NORMAL: 70-99 mg/dL PRE-DIABETES: 10 0-125 mg/dL DIABETES: >125 m g/dL RANGES FOR NEONATES ARE DEPENDENT ON GESTATIONAL A GE AND WEIGHT. JAY JAY (test code = JAY JAY) Lab Interpretation (test code = Normal 73665-7) Occult Blood, Screen [id number] 09:22:00 Test Item Value Reference Range Comments Occult Blood Screening (test code = 63247902) Negative Ne gative Lab Interpretation (test code = 11557-8) Normal POC Glucose Whole [id number] 08:18:00 Test Item Value Reference Range Comments POC Glucose (test code = 78 mg/dL 70-140 ALERT V ALUES <50 or [id number]) >250 Adult <70 o r >350 PERFORMED AT [facility] POCT PROGRAM Ple ase note that the above l isted reference range is for NONFASTING GLUCO SE levels only. FASTING GL UCOSE reference ranges are shown below: FASTING R EFERENCE RANGES: NORMAL: 70-99 mg/dL PRE-DIABETES: 10 0-125 mg/dL DIABETES: >125 m g/dL RANGES FOR NEONATES ARE DEPENDENT ON GESTATIONAL A GE AND WEIGHT. JAY JAY (test code = JAY JAY) Lab Interpretation (test code = Normal 21278-3) Troponin I (DR/DR)2018-06-04 07:55:00 Test Item Value Reference Range Comments Troponin I (test code = 98069-1) 0.55 ng/mL <0.50 JAY JAY (test code = JAY JAY) Lab Interpretation (test code = 85008-6) Abnormal Basic Metabolic Panel (BMP)2018-06-04 07:49:00 Test Item Value Reference Range Comments Sodium (test code = 2951-2) 136 mmol/L 135-145 Potassium (test code = 2823-3) 4.6 mmol/L 3.5-5 Chloride (test code = 2075-0) 103 mmol/L 98-108 Carbon Dioxide (CO2) (test 20 mmol/L 21-30 code = 2027-9) Urea Nitrogen (BUN) (test code 70 mg/dL 7-20 = 3094-0) Creatinine (test code = 5.2 mg/dL 0.4-1 2160-0) Glucose (test code = 2345-7) 74 mg/dL 70-140 Int erpretive Data: Please note that the ab ove listed reference range fo r NONFASTING GLUCOSE levels o nly. FASTING GLUCOSE referenc e ranges are shown below: FASTING GLUCOSE REFERENCE RANGE NORMAL: 70 - 99mg/dL PREDIABETES: 100 - 125 mg/dL DIABETES: > 125 m g/dL Calcium (test code = 66119-6) 8.6 mg/dL 8.7-10.2 Anion Gap (test code = 13 mmol/L 3-12 56724-4) BUN/CREA Ratio (test code = 13 20-30 3097-3) BUN/CREA Ratio (test code = 14 <30 28516438) Glomerular Filtration Rate <15 mL/min/1.73sq m Inter pretive Ranges for (eGFR), MDRD Estimate (test Stephanie ents with Chronic Kidney code = 22576-6) Disease: eGFR: > 60 mL/min - Norm al eGFR: 30 - 59 mL/min - Moderat eli Decreased eGFR: 15 - 29 mL/min - Severel y Decreased eGFR: < 15 mL/min -Kidney Fail ure Note: These GFR calcul ations do not apply in acu te situations when GFR is changing rapidly or in patients on dial ysis. Lab Interpretation (test code Abnormal = 47439-7) Activated Partial Thromboplastin Time (APTT)2018-06-04 07:38:00 Test Item Value Reference Range Comments Act Partial Thromboplastin Time 39.8 26.8- 37.1 sec Therapeutic Range (Heparin) (test code = 52178-8) = 65-95 se conds Note: The therapeutic rang e for Heparin has been determined using ex-vivo wh ole blood samples and ther apeutic Heparin level of 0.30-0.70 anti-factor Xa u nits. Lab Interpretation (test code = Abnormal 74517-0) Complete Blood Count (CBC)2018-06-04 07:30:00 Test Item Value Reference Range Comments WBC (White Blood Cell Count) (test code = 7.0 4.8- 10.8 x10 9 86575-8) /L Hemoglobin (test code = 718-7) 9.9 g/dL 12-15.5 Hematocrit (test code = 4544-3) 30.6 % 35-45 Plt (platelets) (test code = 91692-6) 245 15 0- 450 x10 9 /L MCV (Mean Corpuscular Volume) (test code = 94 fL 80-98 787-2) MCH (Mean Corpuscular Hemoglobin) (test code = 30.4 pg 2 6.5-34 785-6) MCHC (Mean Corpuscular Hemoglobin 32.4 % 31.4-36 Concentration) (test code = 786-4) RBC (Red Blood Cell Count) (test code = 3.26 3.77- 5.16 x10 1 39396-2) 2/L RDW-CV (Red Cell Distribution Width) (test 15.3 % 11.5- 14.5 code = 84565-9) NRBC (Nucleated Red Blood Cell Count) (test 0.00 0.00- 0.00 x10 9 code = 01711-7) /L NRBC % (Nucleated Red Blood Cell %) (test code 0.0 % = 24745-9) MPV (Mean Platelet Volume) (test code = 10.6 fL 7.2-11.7 98733367) Lab Interpretation (test code = 29422-8) Abnormal Activated Partial Thromboplastin Time (APTT)2018-06-04 00:35:00 Test Item Value Reference Range Comments Act Partial Thromboplastin Time 46.2 26.8- 37.1 sec Therapeutic Range (Heparin) (test code = 87764-1) = 65-95 se conds Note: The therapeutic rang e for Heparin has been determined using ex-vivo wh ole blood samples and ther apeutic Heparin level of 0.30-0.70 anti-factor Xa u nits. Lab Interpretation (test code = Abnormal 33121-6) POC Glucose Whole [id number] 21:19:00 Test Item Value Reference Range Comments POC Glucose (test code = 102 mg/dL 70-140 ALERT V ALUES <50 or 54895141) >250 Adult <70 o r >350 PERFORMED AT [facility] POCT PROGRAM Ple ase note that the above l isted reference range is for NONFASTING GLUCO SE levels only. FASTING GL UCOSE reference ranges are shown below: FASTING R EFERENCE RANGES: NORMAL: 70-99 mg/dL PRE-DIABETES: 10 0-125 mg/dL DIABETES: >125 m g/dL RANGES FOR NEONATES ARE DEPENDENT ON GESTATIONAL A GE AND WEIGHT. JAY JAY (test code = JAY JAY) Lab Interpretation (test code = Normal 33969-8) Activated Partial Thromboplastin Time (APTT)2018-06-03 18:30:00 Test Item Value Reference Range Comments Act Partial Thromboplastin Time 29.0 26.8- 37.1 sec Therapeutic Range (Heparin) = (test code = 46309-1) 65-95 seco nds Note: The therapeutic rang e for Heparin has been determi loly using ex-vivo whole bl ood samples and therapeutic Heparin level of 0.30-0.70 ant i-factor Xa units. Lab Interpretation (test code = Normal 67267-5) Prothrombin Time (INR)2018-06-03 18:30:00 Test Item Value Reference Range Comments Prothrombin Time (test code = 12.6 9.5- 13.1 sec 5902-2) Prothrombin INR (test code = 1.1 0.9-1.1 Ref erence Ranges: DVT/PE/PVD 6301-6) = INR 2.0 - 3.0 Mechanical Heart Valve = IN R 2.5 - 3.5 NOTE: The INR is not a PT Ratio and is anil id only for Coumadin patient s Lab Interpretation (test code = Normal 11766-6) Complete Blood Count (CBC)2018-06-03 18:20:00 Test Item Value Reference Range Comments WBC (White Blood Cell Count) (test code = 6.1 4.8- 10.8 x10 9 59733-2) /L Hemoglobin (test code = 718-7) 9.8 g/dL 12-15.5 Hematocrit (test code = 4544-3) 30.0 % 35-45 Plt (platelets) (test code = 69010-0) 239 15 0- 450 x10 9 /L MCV (Mean Corpuscular Volume) (test code = 93 fL 80-98 787-2) MCH (Mean Corpuscular Hemoglobin) (test code = 30.2 pg 2 6.5-34 785-6) MCHC (Mean Corpuscular Hemoglobin 32.7 % 31.4-36 Concentration) (test code = 786-4) RBC (Red Blood Cell Count) (test code = 3.24 3.77- 5.16 x10 1 23897-6) 2/L RDW-CV (Red Cell Distribution Width) (test 15.4 % 11.5- 14.5 code = 65535-8) NRBC (Nucleated Red Blood Cell Count) (test 0.00 0.00- 0.00 x10 9 code = 87453-8) /L NRBC % (Nucleated Red Blood Cell %) (test code 0.0 % = 46003-7) MPV (Mean Platelet Volume) (test code = 10.4 fL 7.2-11.7 94083052) Lab Interpretation (test code = 48994-7) Abnormal POC Glucose Whole [id number] 18:15:00 Test Item Value Reference Range Comments POC Glucose (test code = 115 mg/dL 70-140 ALERT V ALUES <50 or 91134862) >250 Adult <70 o r >350 PERFORMED AT [facility] POCT PROGRAM Ple ase note that the above l isted reference range is for NONFASTING GLUCO SE levels only. FASTING GL UCOSE reference ranges are shown below: FASTING R EFERENCE RANGES: NORMAL: 70-99 mg/dL PRE-DIABETES: 10 0-125 mg/dL DIABETES: >125 m g/dL RANGES FOR NEONATES ARE DEPENDENT ON GESTATIONAL A GE AND WEIGHT. JAY JAY (test code = JAY JAY) Lab Interpretation (test code = Normal 89914-8) POC Glucose Whole [id number] 18:15:00 Test Item Value Reference Range Comments POC Glucose (test code = 81 mg/dL 70-140 ALERT V ALUES <50 or 00104527) >250 Adult <70 o r >350 PERFORMED AT [facility] POCT PROGRAM Ple ase note that the above l isted reference range is for NONFASTING GLUCO SE levels only. FASTING GL UCOSE reference ranges are shown below: FASTING R EFERENCE RANGES: NORMAL: 70-99 mg/dL PRE-DIABETES: 10 0-125 mg/dL DIABETES: >125 m g/dL RANGES FOR NEONATES ARE DEPENDENT ON GESTATIONAL A GE AND WEIGHT. JAY JAY (test code = JAY JAY) Lab Interpretation (test code = Normal 69415-2) Troponin I ([facility])2018-06-03 14:06:00 Test Item Value Reference Range Comments Troponin I (test code = 21670-6) 0.67 ng/mL <0.50 Result called to: gu3 By Eboni Dillon 06/03/2018 2:05 PM And Resu lt Read Back JAY JAY (test code = JAY JAY) Lab Interpretation (test code = Abnormal 44987-9) POC Glucose Whole [id number] 13:06:00 Test Item Value Reference Range Comments POC Glucose (test code = 80 mg/dL 70-140 ALERT V ALUES <50 or 39112927) >250 Adult <70 o r >350 PERFORMED AT [facility] POCT PROGRAM Ple ase note that the above l isted reference range is for NONFASTING GLUCO SE levels only. FASTING GL UCOSE reference ranges are shown below: FASTING R EFERENCE RANGES: NORMAL: 70-99 mg/dL PRE-DIABETES: 10 0-125 mg/dL DIABETES: >125 m g/dL RANGES FOR NEONATES ARE DEPENDENT ON GESTATIONAL A GE AND WEIGHT. JAY JAY (test code = JAY JAY) Lab Interpretation (test code = Normal 46029-7) POC Glucose Whole [id number] 06:32:00 Test Item Value Reference Range Comments POC Glucose (test code = 94 mg/dL 70-140 ALERT V ALUES <50 or 45898477) >250 Adult <70 o r >350 PERFORMED AT [facility] POCT PROGRAM Ple ase note that the above l isted reference range is for NONFASTING GLUCO SE levels only. FASTING GL UCOSE reference ranges are shown below: FASTING R EFERENCE RANGES: NORMAL: 70-99 mg/dL PRE-DIABETES: 10 0-125 mg/dL DIABETES: >125 m g/dL RANGES FOR NEONATES ARE DEPENDENT ON GESTATIONAL A GE AND WEIGHT. JAY JAY (test code = JAY JAY) Lab Interpretation (test code = Normal 68884-3) Prepare RBC (Crossmatch) - Xuo-[id number] 06:01:16 Test Item Value Reference Range Comments Unit Blood Type (test code = 0768909133) O Pos Unit Number (test code = 9231591510) [id number] Blood Expiration Date (test code = 494909270869 5297734519) Status Information (test code = 7430412473) Transfused Product Identification (test code = Red Blood Cells 3197352417) Product Code (test code = 6565955062) [id number] Coded Unit Blood Type (test code = 5100 7084536083) Cross Match Result (test code = 9998222420) Compatible Troponin I (DRH/DRAH)2018-06-03 05:29:00 Test Item Value Reference Range Comments Troponin I (test code = 65074-4) 0.90 ng/mL <0.50 Result called to:juni By Yanet 06/03/2018 5:28 AM And Resu lt Read Back JAY JAY (test code = JAY JAY) Lab Interpretation (test code = Abnormal 54087-1) Basic Metabolic Panel (BMP)2018-06-03 05:25:00 Test Item Value Reference Range Comments Sodium (test code = 2951-2) 135 mmol/L 135-145 Potassium (test code = 2823-3) 3.5 mmol/L 3.5-5 Chloride (test code = 2075-0) 102 mmol/L 98-108 Carbon Dioxide (CO2) (test 24 mmol/L code = 8-9) Urea Nitrogen (BUN) (test code 48 mg/dL - = 3094-0) Creatinine (test code = 4.1 mg/dL 0.4-1 2160-0) Glucose (test code = 2345-7) 88 mg/dL 70-140 Int erpretive Data: Please note that the ab ove listed reference range fo r NONFASTING GLUCOSE levels o nly. FASTING GLUCOSE referenc e ranges are shown below: FASTING GLUCOSE REFERENCE RANGE NORMAL: 70 - 99mg/dL PREDIABETES: 100 - 125 mg/dL DIABETES: > 125 m g/dL Calcium (test code = 66788-4) 8.2 mg/dL 8.7-10.2 Anion Gap (test code = 9 mmol/L 3-12 50227-0) BUN/CREA Ratio (test code = 12 20-30 3097-3) BUN/CREA Ratio (test code = 12 <30 49902071) Glomerular Filtration Rate <15 mL/min/1.73sq m Inter pretive Ranges for (eGFR), MDRD Estimate (test Stephanie ents with Chronic Kidney code = 89820-4) Disease: eGFR: > 60 mL/min - Norm al eGFR: 30 - 59 mL/min - Moderat eli Decreased eGFR: 15 - 29 mL/min - Severel y Decreased eGFR: < 15 mL/min -Kidney Fail ure Note: These GFR calcul ations do not apply in acu te situations when GFR is changing rapidly or in patients on dial ysis. Lab Interpretation (test code Abnormal = 94014-0) [id number] 05:25:00 Test Item Value Reference Range Comments Magnesium (test code = 30263-3) 2.2 mg/dL 1.8-2.5 Lab Interpretation (test code = 93382-3) Normal Calcium, [id number] 05:20:00 Test Item Value Reference Range Comments Calcium, Ionized (test code = 1993-3) 1.08 mmol/L 1.15-1.32 Lab Interpretation (test code = 33100-3) Abnormal Activated Partial Thromboplastin Time (APTT)2018-06-03 05:11:00 Test Item Value Reference Range Comments Act Partial Thromboplastin Time 26.9 26.8- 37.1 sec Therapeutic Range (Heparin) = (test code = 15701-5) 65-95 seco nds Note: The therapeutic rang e for Heparin has been determi loly using ex-vivo whole bl ood samples and therapeutic Heparin level of 0.30-0.70 ant i-factor Xa units. Lab Interpretation (test code = Normal 07593-3) Complete Blood Count (CBC)2018-06-03 05:01:00 Test Item Value Reference Range Comments WBC (White Blood Cell Count) (test code = 6.7 4.8- 10.8 x10 9 83699-0) /L Hemoglobin (test code = 718-7) 9.4 g/dL 12-15.5 Hematocrit (test code = 4544-3) 28.5 % 35-45 Plt (platelets) (test code = 51952-6) 237 15 0- 450 x10 9 /L MCV (Mean Corpuscular Volume) (test code = 93 fL 80-98 787-2) MCH (Mean Corpuscular Hemoglobin) (test code = 30.7 pg 2 6.5-34 785-6) MCHC (Mean Corpuscular Hemoglobin 33.0 % 31.4-36 Concentration) (test code = 786-4) RBC (Red Blood Cell Count) (test code = 3.06 3.77- 5.16 x10 1 14884-3) 2/L RDW-CV (Red Cell Distribution Width) (test 15.9 % 11.5- 14.5 code = 00629-7) NRBC (Nucleated Red Blood Cell Count) (test 0.00 0.00- 0.00 x10 9 code = 35817-3) /L NRBC % (Nucleated Red Blood Cell %) (test code 0.0 % = 58936-0) MPV (Mean Platelet Volume) (test code = 10.0 fL 7.2-11.7 97421250) Lab Interpretation (test code = 02760-0) Abnormal POC Glucose Whole [id number] 00:09:00 Test Item Value Reference Range Comments POC Glucose (test code = 132 mg/dL 70-140 ALERT V ALUES <50 or 46790675) >250 Adult <70 o r >350 PERFORMED AT [facility] POCT PROGRAM Ple ase note that the above l isted reference range is for NONFASTING GLUCO SE levels only. FASTING GL UCOSE reference ranges are shown below: FASTING R EFERENCE RANGES: NORMAL: 70-99 mg/dL PRE-DIABETES: 10 0-125 mg/dL DIABETES: >125 m g/dL RANGES FOR NEONATES ARE DEPENDENT ON GESTATIONAL A GE AND WEIGHT. JAY JAY (test code = JAY JAY) Lab Interpretation (test code = Normal 61978-2) Activated Partial Thromboplastin Time (APTT)2018-06-02 23:14:00 Test Item Value Reference Range Comments Act Partial Thromboplastin Time 63.6 26.8- 37.1 sec Therapeutic Range (Heparin) (test code = 86258-0) = 65-95 se conds Note: The therapeutic rang e for Heparin has been determined using ex-vivo wh ole blood samples and ther apeutic Heparin level of 0.30-0.70 anti-factor Xa u nits. Lab Interpretation (test code = Abnormal 09702-2) POC Glucose Whole [id number] 22:44:00 Test Item Value Reference Range Comments POC Glucose (test code = 112 mg/dL 70-140 ALERT V ALUES <50 or 86617784) >250 Adult <70 o r >350 PERFORMED AT [facility] POCT PROGRAM Ple ase note that the above l isted reference range is for NONFASTING GLUCO SE levels only. FASTING GL UCOSE reference ranges are shown below: FASTING R EFERENCE RANGES: NORMAL: 70-99 mg/dL PRE-DIABETES: 10 0-125 mg/dL DIABETES: >125 m g/dL RANGES FOR NEONATES ARE DEPENDENT ON GESTATIONAL A GE AND WEIGHT. JAY JAY (test code = JAY JAY) Lab Interpretation (test code = Normal 82589-7) Hepatitis B Surface [id number] 22:39:00 Test Item Value Reference Range Comments Hepatitis B Surface Antigen (test code = 5195-3) NonReactive NonReactive Lab Interpretation (test code = 43970-1) Normal Activated Partial Thromboplastin Time (APTT)2018-06-02 17:38:00 Test Item Value Reference Range Comments Act Partial Thromboplastin Time 27.6 26.8- 37.1 sec Therapeutic Range (Heparin) = (test code = 42042-7) 65-95 seco nds Note: The therapeutic rang e for Heparin has been determi loly using ex-vivo whole bl ood samples and therapeutic Heparin level of 0.30-0.70 ant i-factor Xa units. Lab Interpretation (test code = Normal 85815-8) POC Glucose Whole [id number] 17:12:00 Test Item Value Reference Range Comments POC Glucose (test code = 73 mg/dL 70-140 ALERT V ALUES <50 or 31070479) >250 Adult <70 o r >350 PERFORMED AT [facility] POCT PROGRAM Ple ase note that the above l isted reference range is for NONFASTING GLUCO SE levels only. FASTING GL UCOSE reference ranges are shown below: FASTING R EFERENCE RANGES: NORMAL: 70-99 mg/dL PRE-DIABETES: 10 0-125 mg/dL DIABETES: >125 m g/dL RANGES FOR NEONATES ARE DEPENDENT ON GESTATIONAL A GE AND WEIGHT. JAY JAY (test code = JAY JAY) Lab Interpretation (test code = Normal 46217-9) POC Glucose Whole [id number] 17:07:00 Test Item Value Reference Range Comments POC Glucose (test code = 91 mg/dL 70-140 ALERT V ALUES <50 or 87380990) >250 Adult <70 o r >350 PERFORMED AT [facility] POCT PROGRAM Ple ase note that the above l isted reference range is for NONFASTING GLUCO SE levels only. FASTING GL UCOSE reference ranges are shown below: FASTING R EFERENCE RANGES: NORMAL: 70-99 mg/dL PRE-DIABETES: 10 0-125 mg/dL DIABETES: >125 m g/dL RANGES FOR NEONATES ARE DEPENDENT ON GESTATIONAL A GE AND WEIGHT. JAY JAY (test code = JAY JAY) Lab Interpretation (test code = Normal 38092-5) POC Glucose Whole [id number] 12:27:00 Test Item Value Reference Range Comments POC Glucose (test code = 84 mg/dL 70-140 ALERT V ALUES <50 or 12712716) >250 Adult <70 o r >350 PERFORMED AT [facility] POCT PROGRAM Ple ase note that the above l isted reference range is for NONFASTING GLUCO SE levels only. FASTING GL UCOSE reference ranges are shown below: FASTING R EFERENCE RANGES: NORMAL: 70-99 mg/dL PRE-DIABETES: 10 0-125 mg/dL DIABETES: >125 m g/dL RANGES FOR NEONATES ARE DEPENDENT ON GESTATIONAL A GE AND WEIGHT. JAY JAY (test code = JAY JAY) Lab Interpretation (test code = Normal 64350-6) Echo [id number] 12:06:22 Test Item Value Reference Range Comments LV Ejection Fraction (%) (test code = 53090771281) 40 Aortic Valve Stenosis Grade (test code = none 2590483427) Aortic Valve Regurgitation Grade (test code = none 5574093871) Mitral Valve Regurgitation Grade (test code = moderate 8170839543) Mitral Valve Stenosis Grade (test code = none 7344350780) Tricuspid Valve Regurgitation Grade (test code = trivial 0811672648) Tricuspid Valve Regurgitation Max Velocity (m/s) 3.4 m/sec (test code = 35300827970) Right Ventricle Systolic Pressure (mmHg) (test code 56.5 mmHg = 476932650821) LV End Diastolic Diameter (cm) (test code = 4.9 cm 02049075569) LV End Systolic Diameter (cm) (test code = 3.9 cm 11638637074) LV Septum Wall Thickness (cm) (test code = 1.3 cm 17165811443) LV Posterior Wall Thickness (cm) (test code = 1.3 cm 59896741765) Left Atrium Diameter (cm) (test code = 61883283271) 4.5 cm JAY JAY (test code = JAY JAY) PXN (test code = PXN) Activated Partial Thromboplastin Time (APTT)2018-06-02 12:06:00 Test Item Value Reference Range Comments Act Partial Thromboplastin Time 48.5 26.8- 37.1 sec Therapeutic Range (Heparin) (test code = 77578-7) = 65-95 se conds Note: The therapeutic rang e for Heparin has been determined using ex-vivo wh ole blood samples and ther apeutic Heparin level of 0.30-0.70 anti-factor Xa u nits. Lab Interpretation (test code = Abnormal 06894-5) Troponin I (DR/DRAH)2018-06-02 09:44:00 Test Item Value Reference Range Comments Troponin I (test code = 42843-2) 0.41 ng/mL <0.50 JAY JAY (test code = JAY JAY) Lab Interpretation (test code = 31840-2) Normal Creatine Kinase (CK), Total and MB Fraction (CKMB)2018-06-02 09:44:00 Test Item Value Reference Range Comments Creatine Kinase (CK) (test code = 2157-6) 54 U/L 30-220 CK- MB (Creatine Kinase, MB Fraction) (test code = 6 ng/mL 0-8 97374-1) MB RELATIVE PERCENT (test code = 62339453) 11 % 0-4 Lab Interpretation (test code = 11664-2) Abnormal POC Glucose Whole [id number] 08:12:00 Test Item Value Reference Range Comments POC Glucose (test code = 78 mg/dL 70-140 ALERT V ALUES <50 or 73813153) >250 Adult <70 o r >350 PERFORMED AT [facility] POCT PROGRAM Ple ase note that the above l isted reference range is for NONFASTING GLUCO SE levels only. FASTING GL UCOSE reference ranges are shown below: FASTING R EFERENCE RANGES: NORMAL: 70-99 mg/dL PRE-DIABETES: 10 0-125 mg/dL DIABETES: >125 m g/dL RANGES FOR NEONATES ARE DEPENDENT ON GESTATIONAL A GE AND WEIGHT. JAY JAY (test code = JAY JAY) Lab Interpretation (test code = Normal 43497-8) X-ray chest single view [id number] 07:30:47PORTABLE CHEST: DATE AND TIME: 06/02/2018 4:41 AM HISTORY: Lung Aeration, R06.02 Shortness of breath. COMPARISON: None. FINDINGS AND IMPRESSION: 1. Mild parenchymal opacity right base, likely atelectasis. Pneumonia cannot be excluded. Follow-up encouraged. 2. Small right pleural effusion 3. Cardiomegaly without CHF. 4. Central catheter ending just within the right atrium. No pneumothorax. Electronically Signed by:Beau Wahl MD, [facility] Electronically Signed on:06/02/2018 7:30 AM Interface, Rad Results In - 06/02/2018 7:31 AM EDT PORTABLE CHEST: DATE AND TIME: 06/02/2018 4:41 AM HISTORY: Lung Aeration, R06.02 Shortness of breath. COMPARISON: None. FINDINGS AND IMPRESSION: 1. Mild parenchymal opacity right base, likely atelectasis. Pneumonia cannot be excluded. Follow-up encouraged. 2. Small right pleural effusion 3. Cardiomegaly without CHF. 4. Central catheter ending just within the right atrium. No pneumothorax. Electronically Signed by: Beau Wahl MD, [facility] Electronically Signed on: 06/02/2018 7:30 AMECG [id number] 06:53:00 Test Item Value Reference Range Comments Vent Rate (bpm) (test code = 1811291053) 66 IL Interval (msec) (test code = 1317077477) 196 QRS Interval (msec) (test code = 7903656245) 124 QT Interval (msec) (test code = 2958280270) 460 QTc (msec) (test code = 4226701049) 482 JAY JAY (test code = JAY JAY) ECG [id number] 05:41:26 Test Item Value Reference Range Comments Vent Rate (bpm) (test code = 7965920461) 85 IL Interval (msec) (test code = 4886204482) 132 QRS Interval (msec) (test code = 5791033224) 96 QT Interval (msec) (test code = 6545780739) 396 QTc (msec) (test code = 5685517425) 471 JAY JAY (test code = JAY JAY) Troponin I (/IRENA)2018-06-02 04:56:00 Test Item Value Reference Range Comments Troponin I (test code = 11509-5) 0.40 ng/mL <0.50 JAY JAY (test code = JAY JAY) Lab Interpretation (test code = 61341-2) Normal Creatine Kinase (CK), Total and MB Fraction (CKMB)2018-06-02 04:56:00 Test Item Value Reference Range Comments Creatine Kinase (CK) (test code = 2157-6) 47 U/L 30-220 CK- MB (Creatine Kinase, MB Fraction) (test code = 5 ng/mL 0-8 46149-8) MB RELATIVE PERCENT (test code = 05544313) 11 % 0-4 Lab Interpretation (test code = 22268-9) Abnormal Renal Function Panel (RFP)2018-06-02 04:56:00 Test Item Value Reference Range Comments Sodium (test code = 2951-2) 145 mmol/L 135-145 Potassium (test code = 2823-3) 4.1 mmol/L 3.5-5 Chloride (test code = 2075-0) 107 mmol/L 98-108 Carbon Dioxide (CO2) (test 22 mmol/L 21-30 code = 8-9) Urea Nitrogen (BUN) (test code 104 mg/dL 7-20 = 3094-0) Creatinine (test code = 8.1 mg/dL 0.4-1 2160-0) Calcium (test code = 06785-2) 8.5 mg/dL 8.7-10.2 Phosphorus (test code = 9.5 mg/dL 2.3-4.5 2777-1) Albumin (test code = 1751-7) 2.7 g/dL 3.5-4.8 Glomerular Filtration Rate <15 mL/min/1.73sq m Inter pretive Ranges for (eGFR), MDRD Estimate (test Stephanie ents with Chronic Kidney code = 52215-2) Disease: eGFR: > 60 mL/min - Norm al eGFR: 30 - 59 mL/min - Moderat eli Decreased eGFR: 15 - 29 mL/min - Severel y Decreased eGFR: < 15 mL/min -Kidney Fail ure Note: These GFR calcul ations do not apply in acu te situations when GFR is changing rapidly or in patients on dial ysis. Glucose (test code = 2345-7) 68 mg/dL 70-140 Int erpretive Data: Please note that the ab ove listed reference range fo r NONFASTING GLUCOSE levels o nly. FASTING GLUCOSE referenc e ranges are shown below: FASTING GLUCOSE REFERENCE RANGE NORMAL: 70 - 99mg/dL PREDIABETES: 100 - 125 mg/dL DIABETES: > 125 m g/dL Anion Gap (test code = 16 mmol/L 12 86760-2) BUN/CREA Ratio (test code = 3097-3) Lab Interpretation (test code Abnormal = 43362-7) Activated Partial Thromboplastin Time (APTT)2018-06-02 04:37:00 Test Item Value Reference Range Comments Act Partial Thromboplastin Time 37.1 26.8- 37.1 sec Therapeutic Range (Heparin) = (test code = 58033-1) 65-95 seco nds Note: The therapeutic rang e for Heparin has been determi loly using ex-vivo whole bl ood samples and therapeutic Heparin level of 0.30-0.70 ant i-factor Xa units. Lab Interpretation (test code = Normal 08750-2) Complete Blood Count (CBC) with [id number] 04:28:00 Test Item Value Reference Range Comments WBC (White Blood Cell Count) (test code = 7.1 4.8- 10.8 x10 9 68956-5) /L Hemoglobin (test code = 718-7) 7.8 g/dL 12-15.5 Hematocrit (test code = 4544-3) 24.7 % 35-45 Plt (platelets) (test code = 24844-1) 243 15 0- 450 x10 9 /L MCV (Mean Corpuscular Volume) (test code = 98 fL 80-98 787-2) MCH (Mean Corpuscular Hemoglobin) (test code = 31.0 pg 2 6.5-34 785-6) MCHC (Mean Corpuscular Hemoglobin 31.6 % 31.4-36 Concentration) (test code = 786-4) RBC (Red Blood Cell Count) (test code = 2.52 3.77- 5.16 x10 1 96067-5) 2/L RDW-CV (Red Cell Distribution Width) (test 14.9 % 11.5- 14.5 code = 32546-7) NRBC (Nucleated Red Blood Cell Count) (test 0.00 0.00- 0.00 x10 9 code = 23400-0) /L NRBC % (Nucleated Red Blood Cell %) (test code 0.0 % = 96277-5) MPV (Mean Platelet Volume) (test code = 10.0 fL 7.2-11.7 08496166) Neutrophil Count (test code = 91666-6) 3.9 2 .0- 8.6 x10 9 /L Neutrophil % (test code = 19161-9) 55.5 % 37-80 Lymphocyte Count (test code = 32294-5) 2.4 0 .6- 4.2 x10 9 /L Lymphocyte % (test code = 59575-1) 33.9 % 10-50 Monocyte Count (test code = 39878-0) 0.5 0.0 - 0.9 x10 9 /L Monocyte % (test code = 01425-7) 7.5 % 0-12 Eosinophil Count (test code = 711-2) 0.16 0.0 0- 0.70 x10 9 /L Eosinophil % (test code = 39571-1) 2.3 % 0-7 Basophil Count (test code = 704-7) 0.03 0.00- 0.20 x10 9 /L Basophil % (test code = 706-2) 0.4 % 0-2 Immature Granulocyte Count (test code = 0.03 <=0.06 x10 9 91516-9) /L Immature Granulocyte % (test code = 36586-9) 0.4 % <=0 .7 Lab Interpretation (test code = 67124-4) Abnormal Type And [id number] 00:20:00 Test Item Value Reference Range Comments ABO RH TYPE (test code = 882-1) O Positive Antibody Screen (test code = 890-4) Negative Specimen Outdate (test code = 29036456) 06-04-2018 23:59 [id number] 00:00:00Ordered by an unspecified provider.Comprehensive Metabolic Panel (CMP)2018-06-01 22:35:00 Test Item Value Reference Range Comments Sodium (test code = 2951-2) 144 mmol/L 135-145 Potassium (test code = 2823-3) 4.0 mmol/L 3.5-5 Chloride (test code = 2075-0) 106 mmol/L 98-108 Carbon Dioxide (CO2) (test 21 mmol/L 21-30 code = 8-9) Urea Nitrogen (BUN) (test code 108 mg/dL 7-20 = 3094-0) Creatinine (test code = 8.0 mg/dL 0.4-1 2160-0) Glucose (test code = 2345-7) 74 mg/dL 70-140 Int erpretive Data: Please note that the ab ove listed reference range fo r NONFASTING GLUCOSE levels o nly. FASTING GLUCOSE referenc e ranges are shown below: FASTING GLUCOSE REFERENCE RANGE NORMAL: 70 - 99mg/dL PREDIABETES: 100 - 125 mg/dL DIABETES: > 125 m g/dL Calcium (test code = 98254-3) 8.7 mg/dL 8.7-10.2 AST (Aspartate 17 U/L 15-41 Aminotransferase) (test code = 1920-8) ALT (Alanine Aminotransferase) 13 U/L 14-54 (test code = 1742-6) Bilirubin, Total (test code = 0.9 mg/dL 0.4-1.5 1974-2) Alk Phos (Alkaline 84 U/L 24-110 Phosphatase) (test code = 6768-6) Albumin (test code = 1751-7) 3.0 g/dL 3.5-4.8 Protein, Total (test code = 6.6 g/dL 5.8-7.8 2885-2) Anion Gap (test code = 17 mmol/L 3-12 36955-3) BUN/CREA Ratio (test code = 14 20-30 3097-3) BUN/CREA Ratio (test code = 14 <30 10240798) Glomerular Filtration Rate <15 mL/min/1.73sq m Inter pretive Ranges for (eGFR), MDRD Estimate (test Stephanie ents with Chronic Kidney code = 12367-5) Disease: eGFR: > 60 mL/min - Norm al eGFR: 30 - 59 mL/min - Moderat eli Decreased eGFR: 15 - 29 mL/min - Severel y Decreased eGFR: < 15 mL/min -Kidney Fail ure Note: These GFR calcul ations do not apply in acu te situations when GFR is changing rapidly or in patients on dial ysis. Lab Interpretation (test code Abnormal = 59632-2) [id number] 22:22:00 Test Item Value Reference Range Comments Magnesium (test code = 61537-4) 2.6 mg/dL 1.8-2.5 Lab Interpretation (test code = 21472-7) Abnormal [id number] 22:22:00 Test Item Value Reference Range Comments Phosphorus (test code = 2777-1) 8.9 mg/dL 2.3-4.5 Lab Interpretation (test code = 68040-7) Abnormal Troponin I (DRH/DRAH)2018-06-01 22:22:00 Test Item Value Reference Range Comments Troponin I (test code = 79444-4) 0.38 ng/mL <0.50 JAY JAY (test code = JAY JAY) Lab Interpretation (test code = 50896-2) Normal Creatine Kinase (CK), Total and MB Fraction (CKMB)2018-06-01 22:22:00 Test Item Value Reference Range Comments Creatine Kinase (CK) (test code = 2157-6) 56 U/L 30-220 CK- MB (Creatine Kinase, MB Fraction) (test code = 6 ng/mL 0-8 09327-9) MB RELATIVE PERCENT (test code = 24680119) 11 % 0-4 Lab Interpretation (test code = 03184-2) Abnormal Calcium, [id number] 21:59:00 Test Item Value Reference Range Comments Calcium, Ionized (test code = 1994-3) 1.12 mmol/L 1.15-1.32 Lab Interpretation (test code = 37381-7) Abnormal Complete Blood Count (CBC)2018-06-01 21:48:00 Test Item Value Reference Range Comments WBC (White Blood Cell Count) (test code = 7.4 4.8- 10.8 x10 9 35159-6) /L Hemoglobin (test code = 718-7) 9.1 g/dL 12-15.5 Hematocrit (test code = 4544-3) 28.7 % 35-45 Plt (platelets) (test code = 15448-0) 247 15 0- 450 x10 9 /L MCV (Mean Corpuscular Volume) (test code = 99 fL 80-98 787-2) MCH (Mean Corpuscular Hemoglobin) (test code = 31.3 pg 2 6.5-34 785-6) MCHC (Mean Corpuscular Hemoglobin 31.7 % 31.4-36 Concentration) (test code = 786-4) RBC (Red Blood Cell Count) (test code = 2.91 3.77- 5.16 x10 1 78172-4) 2/L RDW-CV (Red Cell Distribution Width) (test 15.0 % 11.5- 14.5 code = 51203-0) NRBC (Nucleated Red Blood Cell Count) (test 0.00 0.00- 0.00 x10 9 code = 69889-4) /L NRBC % (Nucleated Red Blood Cell %) (test code 0.0 % = 29927-2) MPV (Mean Platelet Volume) (test code = 9.8 fL 7.2-11.7 93286896) Lab Interpretation (test code = 03869-1) Abnormal ECG [id number] 21:22:17 Test Item Value Reference Range Comments Vent Rate (bpm) (test code = 4352634781) 90 IL Interval (msec) (test code = 6226259396) 140 QRS Interval (msec) (test code = 3038975674) 88 QT Interval (msec) (test code = 5792597993) 378 QTc (msec) (test code = 4682680545) 462 JAY JAY (test code = JAY JAY) MICROALBUMIN, RANDOM URINE (W/CREATININE)2018-03-21 13:15:00 Test Item Value Reference Range Comments CREATININE, RANDOM URINE (test code = 67 mg/dL 20-320 14548190) MICROALBUMIN (test code = 29204130) 77.8 mg/dL MICROALBUMIN/CREATININE RATIO, RANDOM 1161 mcg/mg creat <30 URINE (test code = 24039891) Hemoglobin A1C\S\2018-03-21 10:30:00 Test Item Value Reference Range Comments HgbA1C, Fingerstick (test code = 4548-4) 4.8 % 4-5.6 Hemoglobin A1C\S\2017-10-07 15:15:00 Test Item Value Reference Range Comments HgbA1C, Fingerstick (test code = 4548-4) 4.8 % 4-5.6 CMP with Estimated [id number] 14:49:00 Test Item Value Reference Range Comments ALT/SGPT (test code = 276920) 9 U/L 6-29 BUN (test code = 831224) 49 mg/dL 7-25 Creatinine (test code = 589921) 3.18 mg/dL 0.50-1.05 Alkaline Phosphatase (test code = 378860) 123 U/L 33-130 Glucose (test code = 030243) 66 mg/dL 65-99 Bilirubin, Total (test code = 428545) 0.3 mg/dL 0.2-1.2 Sodium (test code = 052334) 142 mmol/L 135-146 Albumin (test code = 578753) 2.7 g/dL 3.6-5.1 Chloride (test code = 476647) 122 mmol/L 98-110 Est GFR, NonAfrican Israeli (test code = 747219) 15 mL/min >=60 AST/SGOT (test code = 431343) 11 U/L 10-35 Potassium (test code = 100587) 5.6 mmol/L 3.5-5.3 Total Protein (test code = 307599) 5.3 g/dL 6.1-8.1 CO2 (test code = 848142) 16 mmol/L 20-31 Est GFR, (test code = 395830) 18 mL/min > =60 Calcium (test code = 973585) 7.8 mg/dL 8.6-10.4 CBC NO Diff (Complete Blood Count)2017-08-23 14:49:00 Test Item Value Reference Range Comments MCH (test code = 309770) 28.8 pg 27.0-33.0 WBC (test code = 681436) 5.7 K/uL 3.8-10.8 RDW (test code = 978639) 15.6 % 11.0-15.0 MCHC (test code = 084226) 31.6 g/dL 32.0-36.0 MPV (test code = 046995) 9.2 fL 7.5-12.5 MCV (test code = 160866) 91.2 fL 80.0-100.0 Hemoglobin (test code = 926330) 10.2 g/dL 11.7-15.5 Hematocrit (test code = 049033) 32.3 % 35.0-45.0 RBC (test code = 758726) 3.54 MIL/uL 3.80-5.10 Platelet Count (test code = 488853) 249 K/uL 140-400 Lipid [id number] 14:49:00 Test Item Value Reference Range Comments HDL Cholesterol (test code = 630882) 36 mg/dL >50 Total Chol/HDL Ratio (test code = 706395) 4.8 Ratio <5.0 Cholesterol (test code = 220227) 173 mg/dL <200 LDL Cholesterol (Calc) (test code = 521643) 110 mg/dL <100 Triglycerides (test code = 721950) 135 mg/dL <150 VLDL Cholesterol (Calc) (test code = 851887) 27 mg/dL <30 CMP with Estimated [id number] 15:11:00 Test Item Value Reference Range Comments Est GFR, NonAfrican Israeli (test code = 813981) 19 mL/min >=60 Chloride (test code = 438776) 118 mmol/L 98-110 Creatinine (test code = 626206) 2.72 mg/dL 0.50-1.05 Bilirubin, Total (test code = 909588) 0.2 mg/dL 0.2-1.2 Total Protein (test code = 052101) 5.8 g/dL 6.1-8.1 Potassium (test code = 115813) 5.1 mmol/L 3.5-5.3 AST/SGOT (test code = 809266) 10 U/L 10-35 Alkaline Phosphatase (test code = 984541) 126 U/L 33-130 ALT/SGPT (test code = 127808) 7 U/L 6-29 CO2 (test code = 847931) 16 mmol/L 20-31 BUN (test code = 808090) 51 mg/dL 7-25 Albumin (test code = 747938) 3.1 g/dL 3.6-5.1 Calcium (test code = 952835) 8.2 mg/dL 8.6-10.4 Sodium (test code = 956125) 145 mmol/L 135-146 Glucose (test code = 947629) 131 mg/dL 65-99 Est GFR, (test code = 477793) 22 mL/min > =60 Vitamin B12 (Cobalamin)2017-06-18 15:11:00 Test Item Value Reference Range Comments Vitamin B12 (test code = 041730) 348 pg/mL 200-1100 CBC NO Diff (Complete Blood Count)2017-06-18 15:11:00 Test Item Value Reference Range Comments RBC (test code = 661021) 3.74 MIL/uL 3.80-5.10 Hematocrit (test code = 032950) 33.6 % 35.0-45.0 WBC (test code = 925059) 6.2 K/uL 3.8-10.8 MCHC (test code = 737369) 31.8 g/dL 32.0-36.0 Platelet Count (test code = 621771) 276 K/uL 140-400 MCH (test code = 940931) 28.6 pg 27.0-33.0 Hemoglobin (test code = 970351) 10.7 g/dL 11.7-15.5 MCV (test code = 890525) 89.8 fL 80.0-100.0 RDW (test code = 412181) 14.8 % 11.0-15.0 MPV (test code = 059323) 10.6 fL 7.5-12.5 Hemoglobin A1c with [id number] 15:11:00 Test Item Value Reference Range Comments Hemoglobin A1C (test code = 343001) 5.4 % <5.7 eAG (calc) (test code = 681532) 108 mg/dL [id number] 11:00:00 Test Item Value Reference Range Comments TSH (test code = 298405) 0.63 mIU/L CMP with Estimated [id number] 11:00:00 Test Item Value Reference Range Comments Sodium (test code = 306578) 139 mmol/L 135-146 AST/SGOT (test code = 871264) 11 U/L 10-35 BUN (test code = 077463) 46 mg/dL 7-25 Albumin (test code = 824852) 2.6 g/dL 3.6-5.1 Creatinine (test code = 208932) 2.40 mg/dL 0.50-1.05 ALT/SGPT (test code = 557927) 7 U/L 6-29 Alkaline Phosphatase (test code = 659871) 133 U/L 33-130 Total Protein (test code = 715295) 5.7 g/dL 6.1-8.1 Glucose (test code = 973340) 160 mg/dL 65-99 Calcium (test code = 206232) 8.4 mg/dL 8.6-10.4 Est GFR, NonAfrican Israeli (test code = 131960) 22 mL/min >=60 Bilirubin, Total (test code = 988862) 0.2 mg/dL 0.2-1.2 Chloride (test code = 614354) 110 mmol/L 98-110 CO2 (test code = 333123) 18 mmol/L 20-31 Est GFR, (test code = 501139) 25 mL/min > =60 Potassium (test code = 441841) 4.3 mmol/L 3.5-5.3 Lipid [id number] 11:00:00 Test Item Value Reference Range Comments VLDL Cholesterol (Calc) (test code = 196930) NOT CALC mg/dL <30 Total Chol/HDL Ratio (test code = 854326) 11.0 Ratio <=5.0 Cholesterol (test code = 098292) 276 mg/dL 125-200 Triglyceride (test code = 643652) 865 mg/dL <150 LDL Cholesterol (Calc) (test code = 677934) NOT CALC mg/dL <130 HDL Cholesterol (test code = 015260) 25 mg/dL >=46 CBC NO Diff (Complete Blood Count)2017-01-03 11:00:00 Test Item Value Reference Range Comments RBC (test code = 950633) 4.01 MIL/uL 3.80-5.10 MCH (test code = 772471) 29.4 pg 27.0-33.0 MCV (test code = 984913) 90.0 fL 80.0-100.0 Hemoglobin (test code = 553321) 11.8 g/dL 11.7-15.5 MPV (test code = 857528) 9.8 fL 7.5-12.5 Platelet Count (test code = 854501) 318 K/uL 140-400 Hematocrit (test code = 943310) 36.1 % 35.0-45.0 WBC (test code = 981419) 8.7 K/uL 3.8-10.8 RDW (test code = 730216) 14.3 % 11.0-15.0 MCHC (test code = 741242) 32.7 g/dL 32.0-36.0 Hemoglobin A1C\S\2017-01-03 10:15:00 Test Item Value Reference Range Comments HgbA1C, Fingerstick (test code = 4548-4) 8.1 % 4-5.6 Assessments Condition Name Status Diagnosis Date Treating Clinici an Essential (primary) hypertension Active Mixed hyperlipidemia Active Type 2 diabetes w unsp diabetic rtnop w/o Active macular edema half-way (current) use of insulin Active Encounter for screening for malignant Active neoplasm of cervix Encounter for oth screening for malignant Active neoplasm of breast 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 half-way (current) use of insulin Active Pressure ulcer of left buttock, 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 half-way (current) use of insulin Active Other reduced mobility Active 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 Chronic kidney disease, stage 4 (severe) Active Encounter for screening for malignant Active neoplasm of colon Essential (primary) hypertension Active Essential (primary) hypertension Active Mixed incontinence Active Dependence on renal dialysis Active Personal history of endo, nutritional and Active metabolic disease End stage renal disease Active Hypertensive chronic kidney disease w stg Active 1-4/unsp chr kdny Mixed incontinence Active Personal history of endo, nutritional and Active metabolic disease End stage renal disease Active SYSTEM 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 Chronic kidney disease, stage 4 (severe) Active Essential (primary) hypertension Active Dysuria Active 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, 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 Chronic kidney disease, stage 4 (severe) Active 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 Chronic kidney disease, stage 4 (severe) Active Type 2 diabetes mellitus without Active complications Essential (primary) hypertension Active Hyperlipidemia, unspecified Active Headache Active 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 Chronic kidney disease, stage 4 (severe) Active Type 2 diabetes mellitus with hyperglycemia Active 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 Essential (primary) hypertension Active Hyperlipidemia, unspecified Active Chronic kidney disease, stage 4 (severe) Active Essential (primary) hypertension Active Type 2 diabetes mellitus with hyperglycemia Active Unspecified visual disturbance Active Hyperlipidemia, unspecified Active Hypertensive disorder, systemic arterial Active Encounters Start End Encounter Admission Attending Care Care Encounter Date/Time Date/Time Type Type Clinicians Facility Department ID 2020-06-01 2020-06-01 Outpatient [facility] 1 [id number] 08:15:00 08:15:00 Khloe Children [id number] s [id number] and [id number] [facility], 2020-01-13 2020-01-13 [facility] 4 [id number] 11:00:00 11:00:00 Khloe Children [id number] s [id number] and [id number] [facility] 2019-11-27 2019-11-27 [facility] 7 [id number] 10:15:00 10:15:00 Khloe Children [id number] s [id number] and [id number] [facility], 2019-10-14 2019-10-14 [facility] 6 [id number] 10:30:00 10:30:00 Khloe Children [id number] s [id number] and [id number] [facility], 2019-04-15 2019-04-15 [facility] 8 [id number] 10:15:00 10:15:00 Stormy Children???s [id number] and [id number] Multispecialt [id number] y Clini 2018-09-19 2018-09-19 O Charles Zhu [facility] [id number] 16:16:00 16:16:00 Charles Zhu 2018-09-05 2018-09-05 [facility] [id number] 11:15:00 11:15:00 Stormy Children [id number] s [id number] and [id number] Multispecialt y [facility], [facility] 2018-06-01 2018-06-06 Inpatient [facility] [id number] 21:08:14 14:46:00 2018-06-01 2018-06-06 Inpatient LOGAN [facility] [id number] 21:08:14 14:46:00 CELIO 2018-06-02 2018-06-02 Outpatient [facility] [id number] 00:00:00 23:59:00 2018-06-02 2018-06-02 Outpatient [facility] [id number] 00:00:00 00:00:00 2018-03-21 2018-03-21 Outpatient Ike [facility] C [id number] 10:30:00 10:30:00 Elyse Children [id number] s [id number] and [id number] [facility], [facility] 2017-10-07 2017-10-07 Outpatient Tessa [facility] 05 [id number] 15:15:00 15:15:00 Dorcas Children [id number] s [id number] and [id number] [facility], [facility] 2017-08-05 2017-08-05 Outpatient Tessa [facility] 84 [id number] 14:30:00 14:30:00 Dorcas Children [id number] s [id number] and [id number] [facility], [facility] 2017-06-18 2017-06-18 Outpatient Tessa [facility] FC [id number] 14:00:00 14:00:00 Dorcas Children [id number] s [id number] and [id number] [facility] 2017-01-31 2017-01-31 Outpatient Tessa [facility] 03 [id number] 10:15:00 10:15:00 Dorcas Children [id number] s [id number] and [id number] [facility], [facility] 2017-01-03 2017-01-03 Outpatient Tsesa [facility] 89 [id number] 10:15:00 10:15:00 Dorcas Children [id number] s [id number] and [id number] [facility] Payers Payer Name Policy Type Policy Number Effective Date Expiration D ate Plan of Treatment Planned Activity Planned Date Details Comments Future Scheduled Test [code = ] Future Scheduled Test [code = ] Future Scheduled Test [code = ] Future Scheduled Test [code = ] Future Scheduled Test [code = ] Future Scheduled Test [code = ] Future Scheduled Test [code = ] Future Scheduled Test [code = ] Future Scheduled Test [code = ] Future Scheduled Test [code = ] Future Scheduled Test [code = ] Future Scheduled Test [code = ] Future Scheduled Test [code = ] Future Scheduled Test [code = ] Future Scheduled Test [code = ] Future Scheduled Test [code = ] Future Scheduled Test [code = ] Future Scheduled Test [code = ] Future Scheduled Test [code = ] Future Scheduled Test [code = ] Future Scheduled Test [code = ] Future Scheduled Test [code = ] Future Scheduled Test [code = ] Future Scheduled Test [code = ] Future Scheduled Test [code = ] Future Scheduled Test [code = ] Future Scheduled Test [code = ] Future Scheduled Test [code = ] Future Scheduled Test [code = ] Future Scheduled Test [code = ] Future Scheduled Test [code = ] Future Scheduled Test [code = ] Future Scheduled Test [code = ] Future Scheduled Test [code = ] Future Scheduled Test [code = ] Future Scheduled Test [code = ] Future Scheduled Test [code = ] Future Scheduled Test [code = ] Future Scheduled Test [code = ] Future Scheduled Test [code = ] Future Scheduled Test [code = ] Future Scheduled Test [code = ] Future Scheduled Test [code = ] Future Scheduled Test [code = ] Future Scheduled Test [code = ] Future Scheduled Test [code = ] Future Scheduled Test [code = ] Future Scheduled Test [code = ] Future Scheduled Test [code = ] Future Scheduled Test [code = ] Future Scheduled Test [code = ] Future Scheduled Test [code = ] Future Scheduled Test [code = ] Future Scheduled Test [code = ] Future Scheduled Test [code = ] Future Scheduled Test [code = ] Future Scheduled Test [code = ] Future Scheduled Test [code = ] Future Scheduled Test [code = ] Future Scheduled Test [code = ] Future Scheduled Test [code = ] Future Scheduled Test [code = ] Future Scheduled Test [code = ] Future Scheduled Test [code = ] Future Scheduled Test [code = ] Future Scheduled Test [code = ] Future Scheduled Test [code = ] Future Scheduled Test [code = ] Future Scheduled Test [code = ] Future Scheduled Test [code = ] Future Scheduled Test [code = ] Future Scheduled Test [code = ] Social History Smoking Status Start Date Stop Date Never smoker 2018-06-03 00:00:00 Vital Signs Vital Name Observation Time Observation Value Comments SYSTOLIC BLOOD PRESSURE 2018-06-06 12:49:00 148 mm[Hg] DIASTOLIC BLOOD PRESSURE 2018-06-06 12:49:00 66 mm[Hg] HEART RATE 2018-06-06 12:49:00 79 /min BODY TEMPERATURE 2018-06-06 12:49:00 37.11 Yris RESPIRATORY RATE 2018-06-06 12:49:00 18 /min OXYGEN SATURATION 2018-06-06 12:49:00 97 % WEIGHT 2018-06-06 03:54:00 56.291 kg BODY MASS INDEX 2018-06-06 03:54:00 20.65 kg/m2 HEIGHT 2018-06-01 20:40:00 165.1 cm SYSTOLIC BLOOD PRESSURE 2018-06-06 12:49:00 148 mm[Hg] DIASTOLIC BLOOD PRESSURE 2018-06-06 12:49:00 66 mm[Hg] HEART RATE 2018-06-06 12:49:00 79 /min BODY TEMPERATURE 2018-06-06 12:49:00 37.11 Yris RESPIRATORY RATE 2018-06-06 12:49:00 18 /min OXYGEN SATURATION 2018-06-06 12:49:00 97 % WEIGHT 2018-06-06 03:54:00 56.291 kg BODY MASS INDEX 2018-06-06 03:54:00 20.65 kg/m2 HEIGHT 2018-06-01 20:40:00 165.1 cm Hospital Discharge Instructions Discharge Instr - Rajan - Maliha Downs - 06/02/2018 3:09 PM EDT To [facility] [phone] If you have any questions about your medications or medical care, please call [facility] at [phone] and ask for the floor that you were discharged from to speak with a nurse If you have any questions about your discharge plan please call the [facility] Case Management Office at [phone] The following attachments cannot be sent through Care Everywhere. POST PERCUTANEOUS CORONARY INTERVENTION CARE, FEMORAL SITE CARE-[facility] (SPANISH) Non-ST Segment Elevation Heart Attack (Latvian) in this encounter
== END 2020-07-28 11:50 | disposition home or self-care (01) ==
LOC: SC 09:16
PROVIDERS: ATTEND Internal Medicine
DX: H25.89 Other age-related cataract (principal); E11.3592 Type 2 diabetes mellitus with proliferative diabetic retinopathy without macular edema, left eye; Q11.1 Other anophthalmos; H04.122 Dry eye syndrome of left lacrimal gland; I25.10 Atherosclerotic heart disease of native coronary artery without angina pectoris; E11.22 Type 2 diabetes mellitus with diabetic chronic kidney disease; I12.9 Hypertensive chronic kidney disease with stage 1 through stage 4 chronic kidney disease, or unspecified chronic kidney disease; N18.4 Chronic kidney disease, stage 4 (severe); Z79.84 Long term (current) use of oral hypoglycemic drugs; R51.9 Headache, unspecified; F17.210 Nicotine dependence, cigarettes, uncomplicated; I25.2 Old myocardial infarction
CPT/HCPCS: 66982; 82962; V2632; J2250; J3490 ×3; A9270; J0171; J3010